=== PATIENT | female | born 1975 | race Caucasian/White ===

== ENCOUNTER 2021-08-13 10:08 | Outpatient (CLI) | payer OTHER, SELFPAY ==
--- NOTE | ~2021-08-13 | MM_ITS ---
EXAMINATION: MM screening cristofer BI w lj HISTORY: Screening TECHNIQUE: Craniocaudal and mediolateral oblique 3-D tomosynthesis images were obtained and synthetic 2-D images were generated. CAD analysis was submitted and interpreted. COMPARISON: Comparison to multiple prior studies sequentially, with oldest reviewed study dated 01/15. BREAST PARENCHYMAL COMPOSITION: The breasts are heterogenously dense, which may obscure small masses FINDINGS: There is no evidence of suspicious mass, calcification, or architectural distortion to sugg est malignancy in either breast. There has been no suspicious interval change. IMPRESSION: 1. No mammographic evidence of malignancy. 2. Recommend routine screening mammography in one year. BI-RADS Category 1: Negative Reviewed, dictated and finalized at location A. ER OUT
== END 2021-08-13 10:09 | disposition home or self-care (01) ==
PROVIDERS: PCP Family Medicine; Visit Provider Physician Assistant
DX: Z12.31 Encounter for screening mammogram for malignant neoplasm of breast (principal)
CPT/HCPCS: 77063; 77067

== ENCOUNTER 2023-01-01 07:56 | Outpatient (CLI) | payer OTHER, SELFPAY ==
--- NOTE | ~2023-01-01 | MM_ITS ---
EXAMINATION: MM screening cristofer BI w lj HISTORY: Screening TECHNIQUE: Craniocaudal and mediolateral oblique 3-D tomosynthesis images were obtained and synthetic 2-D images were generated. CAD analysis was submitted and interpreted. COMPARISON: Comparison to multiple prior studies sequentially, with oldest reviewed study dated 01/15. BREAST PARENCHYMAL COMPOSITION: The breasts are heterogeneously dense, which may obscure small masses . FINDINGS: There is no evidence of suspicious mass, calcification, or architectural distortion to sugg est malignancy in either breast. There has been no suspicious interval change. IMPRESSION: 1. No mammographic evidence of malignancy. 2. Recommend routine screening mammography in one year. BI-RADS Category 1: Negative Reviewed, dictated and finalized at location A.
== END 2023-01-01 07:57 | disposition home or self-care (01) ==
PROVIDERS: PCP Family Medicine; Visit Provider Physician Assistant
DX: Z12.31 Encounter for screening mammogram for malignant neoplasm of breast (principal)
CPT/HCPCS: 77063; 77067

== ENCOUNTER 2023-01-22 11:47 | Day surgery (SDC) | payer OTHER, SELFPAY ==
[2022-12-30 15:03] VITALS: BMI 34.7
[2023-01-05 10:15] VITALS: BMI 31.5
--- NOTE | 2023-01-21 12:50 | WPDANESEPPF ---
Anes - Initial Pre Proc Eval Procedure: Operation Date: 01/22/23 13:30 Proposed Procedures p Screening Colonoscopy - Richard Angel MD Date/Time: 01/21/23 12:50 Surgeon: Richard Angel MD Pre Op Diagnosis: Neoplasm Screening Patient Data Age: 47 Gender: F Height: 1.65 m Weight: 86 kg Allergies Allergy/AdvReac Type Severity Reaction Status Date / Time No Known Allergies Allergy Verified 01/22/23 12:16 Home Medications Medication Instructions Recorded Confirmed Type dextroamphetamine-amphetamine 30 30 mg PO DAILY #30 tabs 11/27/22 01/22/23 Rx mg tablet (Adderall) sodium,potassium,mag sulfates 17.5 See Rx Instructions PO .COMPLEX 12/30/22 01/22/23 Rx gram-3.13 gram-1.6 gram oral soln #354 mL (Suprep Bowel Prep Kit) Patient hx anesthesia problems: none Family hx anesthesia problems: none Results Review: All pre-operative results and documents have been reviewed as part of the pre-operative evaluation. [facility] Past Medical History Medical History (Updated 12/04/22 @ 14:35 by Carlito Jimenez PA-C) ADHD (attention deficit hyperactivity disorder) Blood clot in vein (~2004) Kidney infection (~1998) Surgical History Surgical History H/O arthroscopic knee surgery (~2003) H/O section (~2001) History of removal of skin mole (~2007) Family History Family History Mother Diabetes mellitus Father Cerebrovascular accident Social History Social History Smoking status: Never smoker Alcohol intake: current Substance use: never Substance use type: does not use Lack of Transportation: No Lack of Food: Never True Current Housing: I Have Housing Concerned About Future Housing: No Difficulty Paying Gas/Electric Bills: No Difficulty Paying for Meds: No Currently Unemployed: No Education: Master's Degree or Higher Difficulty w/ Childcare or Family Care: No Living arrangements: with family Spiritual care concerns: No Anes - Eval Final PreProcedure Day of Procedure 01/21/23 12:50 Patient weight: obese Heart: regular rate and rhythm Lungs: clear to auscultation Airway: Mallampati scale class II Neurological: alert and oriented Last oral intake: >/= 8 hours ASA classification: II Emergent: no Anesthetic plan: proceed Anesthesia type and monitoring: general GIVS and standard monitoring Results Review: All pre-operative results and documents have been reviewed as part of the pre-operative evaluation. Informed Consent: The patient's anesthetic plan and its attendant risks and benefits were discussed with the patient/family/POA. Questions were solicited and answers provided to the satisfaction of the patient/family/POA.
[2023-01-22 12:10] VITALS: BP 124/90; PULSE 76; RESP 20; TEMP 36.8; O2SAT 99
[2023-01-22] MEDS: LACTATED RINGERS 1,000 ML 150 ML IV CONT (12:21)
--- NOTE | 2023-01-22 12:29 | P.HP_ITS ---
History of Present Illness History of Present Illness Consent: Risks, benefits, and alternatives have been discussed and questions answered. Patient agrees to proceed with procedure. Chief complaint: Neoplasm Screening Narrative: Paris Ramirez is a 47 year old female Presents for screening colonoscopy. Patient's current weight appetite bowel movements are normal. She denies abdominal pain. Patient has had no bleeding. Family history is noncontributory. Review of Systems Review of Systems: Review of systems noncontributory. [facility] Past Medical History Medical History (Updated 12/04/22 @ 14:35 by Carlito Jimenez PA-C) ADHD (attention deficit hyperactivity disorder) Blood clot in vein (~2004) Kidney infection (~1998) Surgical History Surgical History H/O arthroscopic knee surgery (~2003) H/O section (~2001) History of removal of skin mole (~2007) Family History Family History Mother Diabetes mellitus Father Cerebrovascular accident Social History Social History Smoking status: Never smoker Alcohol intake: current Substance use: never Substance use type: does not use Lack of Transportation: No Lack of Food: Never True Current Housing: I Have Housing Concerned About Future Housing: No Difficulty Paying Gas/Electric Bills: No Difficulty Paying for Meds: No Currently Unemployed: No Education: Master's Degree or Higher Difficulty w/ Childcare or Family Care: No Living arrangements: with family Spiritual care concerns: No Meds Home Medications and Allergies Home Medications Medication Instructions Recorded Confirmed Type dextroamphetamine-amphetamine 30 30 mg PO DAILY #30 tabs 11/27/22 01/22/23 Rx mg tablet (Adderall) sodium,potassium,mag sulfates 17.5 See Rx Instructions PO .COMPLEX 12/30/22 01/22/23 Rx gram-3.13 gram-1.6 gram oral soln #354 mL (Suprep Bowel Prep Kit) Allergies Allergy/AdvReac Type Severity Reaction Status Date / Time No Known Allergies Allergy Verified 01/22/23 12:16 Vital Signs Vital Signs - 24 hr 01/22/23 12:10 Temperature 98.2 F Pulse Rate 76 Respiratory Rate 20 Blood Pressure 124/90 Pulse Oximetry 99 Oxygen Delivery Room Air Exam Narrative: Physical exam reveals patient to be alert. Vital signs stable. HEENT exam is unremarkable. Patient is anicteric. Lungs are clear to auscultation and percussion. Heart is without murmur or extra sounds. Abdomen bowel sounds are present soft nontender with no organomegaly. Digital external rectal exam is n ormal. Assessment and Plan Assessment and plan (1) Colon cancer screening: Code(s): Z12.11 - Encounter for screening for malignant neoplasm of colon Status: Acute Assessment and Plan: Patient presents for screening colonoscopy. She appears to be at average risk for colon polyps.
[2023-01-22 13:16] VITALS: BP 141/97; PULSE 77; RESP 18; O2SAT 100
[2023-01-22 13:26] VITALS: BP 120/91; PULSE 76; RESP 17; O2SAT 100
[2023-01-22 13:36] VITALS: BP 135/88; PULSE 66; RESP 16; O2SAT 100
--- NOTE | 2023-01-22 13:40 | WPDANESPN ---
Anes - Prog Note Post-Op Date/Time: 01/22/23 13:40 Cardiovascular status: normal Respiratory status: normal Airway patency: baseline Mental status: baseline Post-Op hydration status: normal Vital Signs: Last Vital Signs Temp 36.8 C 01/22/23 12:10 Pulse 76 01/22/23 13:26 Resp 17 01/22/23 13:26 BP 120/91 H 01/22/23 13:26 Pulse Ox 100 01/22/23 13:26 O2 Del Method Room Air 01/22/23 13:26 Pain Score (VAS): 0 I/O: Intake & Output 01/21/23 01/22/23 01/22/23 23:59 07:59 15:59 Intake Total 500 Balance 500 Post-procedural complaints: none Patient Feedback: Patient satisfied with anesthetic care. Other Findings: Patient vital signs back to baseline. Patient denies nausea and vomiting. Patient's pain under control. Patient OK for discharge.
== END 2023-01-22 13:47 | disposition home or self-care (01) ==
PROVIDERS: PCP Physician Assistant; Visit Provider Internal Medicine Gastroenterology
PROC: 0DJD8ZZ Inspection of Lower Intestinal Tract, Via Natural or Artificial Opening Endoscopic (ICD-10-PCS; CPT 45378; principal; 2023-01-22 13:30)
DX: Z12.11 Encounter for screening for malignant neoplasm of colon (principal)
CPT/HCPCS: 45378

== ENCOUNTER 2024-01-08 07:21 | Outpatient (CLI) | payer OTHER, SELFPAY ==
--- NOTE | ~2024-01-08 | MM_ITS ---
EXAMINATION: MM screening cristofer BI w lj HISTORY: Screening TECHNIQUE: Craniocaudal and mediolateral oblique 3-D tomosynthesis images were obtained and synthetic 2-D images were generated. CAD analysis was submitted and interpreted. COMPARISON: Comparison to multiple prior studies sequentially, with oldest reviewed study dated 01/15. BREAST PARENCHYMAL COMPOSITION: Dense: The breasts are heterogeneously dense, which may obscure small masses FINDINGS: There is no evidence of suspicious mass, calcification, or architectural distortion to sugg est malignancy in either breast. There has been no suspicious interval change. IMPRESSION: 1. No mammographic evidence of malignancy. 2. Recommend routine screening mammography in one year. BI-RADS Category 1: Negative Reviewed, dictated and finalized at location B.
== END 2024-01-08 07:22 | disposition home or self-care (01) ==
LOC: ANHIMG 07:24
PROVIDERS: PCP Emergency Medicine; Visit Provider Obstetrics & Gynecology
DX: Z12.31 Encounter for screening mammogram for malignant neoplasm of breast (principal)
CPT/HCPCS: 77063; 77067

== ENCOUNTER 2024-03-09 13:53 | Outpatient (CLI) | payer OTHER, SELFPAY ==
[2024-03-09 15:16] LABS: Influenza A QL RT-PCR Negative (Negative); Influenza B QL RT-PCR Negative (Negative); RSV RNA, RT-PCR Negative (Negative); SARS-CoV-2 RNA PCR Positive (Negative)
== END 2024-03-09 13:54 | disposition home or self-care (01) ==
LOC: ANHLAB 13:54
PROVIDERS: PCP Emergency Medicine; Visit Provider Emergency Medicine
DX: U07.1 COVID-19 (principal)
CPT/HCPCS: 87637

== ENCOUNTER 2024-08-04 19:06 | Emergency (ER) | payer OTHER, SELFPAY ==
--- NOTE | ~2024-08-04 | XR_ITS ---
EXAMINATION: XR chest 2V Exam Date/Time: 08/04/2024 21:06 TOW TRUCK OPERATOR HISTORY: sob Comparison: None. RESULT: Lines, tubes, and devices: None. Lungs and pleura: Clear. Cardiomediastinal silhouette: Normal. Other: No acute osseous or upper abdominal finding. IMPRESSION: No acute cardiopulmonary process. Reviewed, dictated and finalized at location K. TRUCK OPERATOR
[2024-08-04 19:55] VITALS: BP 192/108; PULSE 81; RESP 16; TEMP 36.6; O2SAT 100
--- NOTE | 2024-08-04 21:08 | ECG_ITS ---
Test Date: 2024-08-04 21:50:36 Measurements Intervals [place] Rate: 64 P: -21 TN: 133 QRS: -17 QRSD: 85 T: 0 QT: 334 QTc: 346 Interpretive Statements SINUS RHYTHM NONSPECIFIC ST & T-WAVE ABNORMALITY No previous ECG available for comparison Electronically Signed On 08-05-2024 16:50:13 INSTRUCTIONAL DESIGN CONSULTANT by Sergey Lopez M.D.
--- NOTE | 2024-08-04 21:08 | PC.NURSE ---
kim dickinson for PG Chest pain with bnp added
[2024-08-04 22:03] LABS: Basophils Percent Auto 0.7 % (0.2-1.2); Eosinophils Absolute Auto 0.1 K/mm3 (0-0.3); Hematocrit 40.5 % (37.0-47.0); Hemoglobin 13.2 g/dL (12.0-15.0); Immature Granulocyte Absolute 0.01 K/mm3 (0.00-0.031); Immature Granulocyte Percent A 0.2 % (0-0.5); Lymphocytes Absolute Auto 1.78 K/mm3 (0.9-3.2); Lymphocytes Percent Auto 29.4 % (18.3-44.2); Mean Corpuscular HGB Conc 32.6 g/dl (32-36); Mean Corpuscular Hemoglobin 29.1 pg (26-34); Mean Corpuscular Volume 89.4 fl (80-100); Mean Platelet Volume 9.8 fl (7.4-10.4); Monocytes Absolute Auto 0.7 K/mm3 (0.1-0.6); Monocytes Percent Auto 10.7 % (2.6-8.5); Neutrophils Absolute Auto 3.5 K/mm3 (1.3-6.7); Platelet Count Result 354 k/mm3 (150-375); Red Blood Count 4.53 M/mm3 (4.2-5.4); Red Cell Distribution Width 12.5 % (11.5-14.5); White Blood Count 6.1 K/mm3 (4.5-10.0)
[2024-08-04 22:10] LABS: Alanine Aminotransferase 27 U/L (6-35); Albumin Level 4.5 g/dL (3.5-5.1); Alkaline Phosphatase 51 U/L (38-126); Anion Gap 8 mmol/L (4-12); Aspartate Amino Transferase 22 U/L (14-36); Bilirubin,Total 0.8 mg/dL (0.2-1.3); Blood Urea Nitrogen 5 mg/dL (7-17); Calcium 9.8 mg/dL (8.4-10.2); Carbon Dioxide 26 mmol/L (22-30); Chloride 101 mmol/L (98-107); Estimated CRCL calculation 81 ml/min; Estimated Glomerular Filt Rate > 60; Glucose 89 mg/dL (65-110); Lipase 96 U/L (23-300); Potassium 3.9 mmol/L (3.4-5.0); Prothrombin Time 13.8 Seconds (11.1-14.7); Sodium 135 mmol/L (137-145)
[2024-08-04 22:11] LABS: Partial Thromboplastin Time 25.9 Seconds (22.3-36.8)
[2024-08-04 22:21] LABS: NT Pro B Type Natriuretic Pept 22 pg/mL (19.9-100); Troponin I < 0.012 ng/mL (0.000-0.034)
[2024-08-04 23:35] VITALS: BP 150/84; PULSE 82; RESP 15; O2SAT 99
[2024-08-04 23:39] VITALS: RESP 14; O2SAT 99
[2024-08-05 00:28] VITALS: BP 126/74; PULSE 66; RESP 13; O2SAT 100
[2024-08-05 01:10] LABS: Troponin I < 0.012 ng/mL (0.000-0.034)
--- NOTE | 2024-08-05 01:14 | ED.GENADULT ---
HPI - General Adult General Chief complaint: Recheck/Abnormal Lab/Rx Stated complaint: sent by for HTN Time Seen by Provider: 08/05/24 00:10 History of Present Illness HPI narrative: Patient is a 49-year-old female who presents to the ER with concerns of high blood pressure. She reports over the last past year she has been experiencing intermittent heart palpitations so she purchased a blood pressure cuff. Patient reports she had heart palpitations approximately 2 months ago and took her blood pressure at home which was a reading in the 140s/90s. She reports that she does have a primary care provider but she has not seen them for quite some time. Patient denies any history of smoking cigarettes, alcohol or drug use, and exercises daily. She does endorse increased anxiety recently. Patient reports she has a history of ADHD and takes Adderall every day, but she has taken this for years. She reports today she started experiencing some blurred vision and headache which is what led her to take her blood pressure at home. Patient reports her symptoms have resolved at this time. She denies any chest pain, shortness of breath, recent signs/symptoms of illness, lower extremity swelling, urinary symptoms. Related Data Allergies Allergy/AdvReac Type Severity Reaction Status Date / Time No Known Allergies Allergy Verified 03/29/24 10:03 Review of Systems Review of Systems: All systems reviewed & are unremarkable except as noted in HPI and below PMFSH Past Medical History Medical History Kidney infection (~1998) Blood clot in vein (~2004) ADHD (attention deficit hyperactivity disorder) Surgical History Surgical History History of knee surgery Right knee meniscus repair March 02 2024 H/O arthroscopic knee surgery (~2003) H/O section (~2001) History of removal of skin mole (~2007) Family History Family History Mother Diabetes mellitus Father Cerebrovascular accident Social History Social History Smoking status: Never smoker Alcohol intake: current Substance use: never Substance use type: does not use Lack of Transportation: No Lack of Food: Never True Current Housing: I Have Housing Concerned About Future Housing: No Difficulty Paying Gas/Electric Bills: No Difficulty Paying for Meds: No Currently Unemployed: No Education: Master's Degree or Higher Difficulty w/ Childcare or Family Care: No Living arrangements: with family Spiritual care concerns: No Course Vital Signs Vital signs: Vital Signs Temperature 36.6 C 08/04/24 19:55 Pulse Rate 81 08/04/24 19:55 Respiratory Rate 16 08/04/24 19:55 Blood Pressure 192/108 H 08/04/24 19:55 Pulse Oximetry 100 08/04/24 19:55 Temperature 36.6 C 08/04/24 19:55 Pulse Rate 66 08/05/24 00:28 Respiratory Rate 13 08/05/24 00:28 Blood Pressure 126/74 08/05/24 00:28 Pulse Oximetry 100 08/05/24 00:28 Medical Decision Making MDM Narrative Medical decision making narrative: Patient is a 49-year-old female who presents to the ER with concerns of high blood pressure. She reports over the last past year she has been experiencing intermittent heart palpitations so she purchased a blood pressure cuff. Patient reports she had heart palpitations approximately 2 months ago and took her blood pressure at home which was a reading in the 140s/90s. She reports that she does have a primary care provider but she has not seen them for quite some time. Patient denies any history of smoking cigarettes, alcohol or drug use, and exercises daily. She does endorse increased anxiety recently. Patient reports she has a history of ADHD and takes Adderall every day, but she has taken this for years. She reports today she started experiencing some blurred vision and headache which is what led her to take her blood pressure at home. Patient reports her symptoms have resolved at this time. She denies any chest pain, shortness of breath, recent signs/symptoms of illness, lower extremity swelling, urinary symptoms. Labs Ordered: CBC, CMP, INR, APTT, lipase, troponin, BMP, TSH Imaging Ordered: Chest x-ray Results: Chest x-ray indicates No acute cardiopulmonary process. Her blood work indicates mild dehydration. Diagnosis: Primary hypertension, mild dehydration Patient Education/Shared MDM: Results shared with patient. Patient will be started on the lisinopril with 5 mg p.o. daily. She is strongly advised to follow-up with her primary care provider as soon as possible. Patient strongly advised to maintain better hydration status outpatient. She verbalizes understanding and is in agreement with plan. Differential Diagnosis Differential Diagnosis: Primary hypertension, atypical chest pain, abnormal thyroid hormone levels Vital Signs Vital Signs: Vital Signs Temperature 36.6 C 08/04/24 19:55 Pulse Rate 81 08/04/24 19:55 Respiratory Rate 16 08/04/24 19:55 Blood Pressure 192/108 H 08/04/24 19:55 Pulse Oximetry 100 08/04/24 19:55 Temperature 36.6 C 08/04/24 19:55 Pulse Rate 66 08/05/24 00:28 Respiratory Rate 13 08/05/24 00:28 Blood Pressure 126/74 08/05/24 00:28 Pulse Oximetry 100 08/05/24 00:28 Lab Data Lab results reviewed: Yes I reviewed the patient's lab results. 08/04/24 21:51 08/04/24 21:51 Labs: Lab Results 08/04/24 08/04/24 08/05/24 Range/Units 21:50 21:51 00:24 WBC 6.1 (4.5-10.0) K/mm3 RBC 4.53 (4.2-5.4) M/mm3 Hgb 13.2 (12.0-15.0) g/dL Hct 40.5 (37.0-47.0) % MCV 89.4 (80-100) fl MCH 29.1 (26-34) pg MCHC 32.6 (32-36) g/dl RDW 12.5 (11.5-14.5) % Plt Count 354 (150-375) k/mm3 MPV 9.8 (7.4-10.4) fl Immature Gran % (Auto) 0.2 (0-0.5) % Neut % (Auto) 58.0 (45.5-73.1) % Lymph % (Auto) 29.4 (18.3-44.2) % [place] % (Auto) 10.7 H (2.6-8.5) % Eos % (Auto) 1.0 (0-4.4) % Baso % (Auto) 0.7 (0.2-1.2) % Lymph # (Auto) 1.78 (0.9-3.2) K/mm3 [place] # (Auto) 0.7 H (0.1-0.6) K/mm3 Eos # (Auto) 0.1 (0-0.3) K/mm3 Baso # (Auto) 0.0 (0.0-0.1) K/mm3 Abs Immat Gran (auto) 0.01 (0.00-0.031) K/mm3 Absolute Neuts (auto) 3.5 (1.3-6.7) K/mm3 Absolute Nucleated RBC 0.000 (0.0-0.012) K/mm3 Nucleated RBC % 0.0 (0.0-0.2) % PT 13.8 (11.1-14.7) Seconds INR 1.0 APTT 25.9 (22.3-36.8) Seconds Sodium 135 L (137-145) mmol/L Potassium 3.9 (3.4-5.0) mmol/L Chloride 101 (98-107) mmol/L Carbon Dioxide 26 (22-30) mmol/L Anion Gap 8 (4-12) mmol/L BUN 5 L (7-17) mg/dL Creatinine 0.76 (0.7-1.0) mg/dL Estim Creat Clear Calc 81 ml/min Estimated GFR > 60 (59 - ) Glucose 89 (65-110) mg/dL Calcium 9.8 (8.4-10.2) mg/dL Total Bilirubin 0.8 (0.2-1.3) mg/dL AST 22 (14-36) U/L ALT 27 (6-35) U/L Alkaline Phosphatase 51 (38-126) U/L Troponin I < 0.012 < 0.012 (0.000-0.034) ng/mL NT-Pro-B Natriuret Pep 22 (19.9-100) pg/mL Total Protein 8.0 (6.3-8.2) g/dL Albumin 4.5 (3.5-5.1) g/dL Lipase 96 (23-300) U/L TSH (Reflex) 1.670 (0.465-4.68) uIU/mL Imaging Data Attestation: I personally reviewed and interpreted this imaging study as follows: Radiologist's impression: Impressions Chest X-Ray 08/04/24 21:20 IMPRESSION: No acute cardiopulmonary process. Discharge Plan Discharge Clinical Impression: Hypertension, Mild dehydration Patient Disposition: Home, Self-Care Condition: Stable Instructions: Antibiotic Form, Hypertension (ED) Additional Instructions: Please return to the ER with an worsening symptoms. Follow-up with primary care provider in the next 2-3 days. Take all medications as prescribed. Patient Language: Belgian Prescriptions: New lisinopril 5 mg tablet 5 mg PO DAILY Qty: 30 0RF No Action tobramycin-dexamethasone 0.3-0.1 % drops,suspension 1 drp LEFT EYE QID Qty: 10 0RF Rx Instructions: Use no more than 7 days consecutively dextroamphetamine-amphetamine [Adderall] 30 mg tablet 30 mg PO DAILY Qty: 30 0RF Rx Instructions: June dextroamphetamine-amphetamine [Adderall] 30 mg tablet 30 mg PO DAILY Qty: 30 0RF Rx Instructions: July dextroamphetamine-amphetamine [Adderall] 30 mg tablet 30 mg PO DAILY Qty: 30 0RF Rx Instructions: August Follow-up/Referrals: Gokul Merino MD [Primary Care Provider] - Time of Disposition: 01:41
[2024-08-05 02:22] VITALS: BP 147/82; PULSE 67; RESP 14; TEMP 36.5; O2SAT 100
--- OUTSIDE RECORDS SUMMARY | 2024-08-12 01:11 | XMS_ITS | Encounter Summary ---
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 Procedure Visit [facility] [id number] [place] [address] , [address] [place] [address] Prothrombin mutation (HCC); Personal history of venous thrombosis and embolism Social History Tobacco Use Types Packs/Day Years Used Date Smoking Tobacco: Never Alcohol Use Standard Drinks/Week Comments No 0 (1 standard drink = 0.6 oz pur e alcohol) Comments Yes Sex and Gender Information Value Date Recorded Sex Assigned at Not on file Gender Identity Not on file Sexual Orientation Not on file documented as of this encounter Procedure Notes * Linda Estrada RN - 07/22/2010 2:08 PM CST DNKA SCAPE CONTRACTOR documented in this encounter Plan of Treatment Not on file documented as of this encounter Visit Diagnoses Diagnosis Prothrombin mutation (HCC) Primary hypercoagulable state Personal history of venous thrombosis and embolism documented in this encounter Care Teams Geoscience Professor Relationship Specialty Start Date End Date Unknown, Provider PCP - General 03/26/10 12/13/13 documented as of this encounter
--- OUTSIDE RECORDS SUMMARY | 2024-08-12 01:11 | XMS_ITS | Encounter Summary ---
Author Organization [facility] Address [address] [place] [address] Care Team Providers Care Cmv Driver Name Role Phone Unknown, Provider Primary Care Provider Unavaila ble Reason for Visit * Reason Comments Consultation Ultrasound FAD NST Encounter Details Date Type Department Care Team (Latest Contact Info) Description 08/06/2010 3:15 PM PATIENT SAFETY COORDINATOR [facility] Visit [facility] at [facility] [address] , [address] [place] [address] Raya Arguello MD Personal history of venous thrombosis and embolism Discharge Disposition: Home or Self Care Social History Tobacco Use Types Packs/Day Years Used Date Smoking Tobacco: Never Alcohol Use Standard Drinks/Week Comments No 0 (1 standard drink = 0.6 oz pur e alcohol) Comments Yes Sex and Gender Information Value Date Recorded Sex Assigned at Not on file Gender Identity Not on file Sexual Orientation Not on file documented as of this encounter Last Filed Vital Signs Vital Sign Reading Time Taken Comments Blood Pressure 107/58 08/06/2010 3:17 PM PATIENT SAFETY COORDINATOR Pulse 90 08/06/2010 3:17 PM PATIENT SAFETY COORDINATOR Temperature - - Respiratory Rate 16 08/06/2010 3:17 PM PATIENT SAFETY COORDINATOR Oxygen Saturation - - Inhaled Oxygen Concentration - - Weight 100.2 kg (221 lb) 08/06/2010 3:17 PM PATIENT SAFETY COORDINATOR Height - - Body Mass Index 36.78 03/26/2010 8:53 AM CDT documented in this encounter Progress Notes * Roberto Leavitt MD - 08/06/2010 4:22 PM CST nst 08-06-10 Reactive, no decels, reassuring Roberto Leavitt MD ENT SAFETY COORDINATOR * Linda Estrada, RN - 08/06/2010 3:17 PM CST Pt. here for consultation with Dr. Leavitt for history of DVT. See letter for further information. Pt. here for US. See report. Copy of report faxed to office of referring physician. PT sts she does have some contractions that make it difficult to walk. ENT SAFETY COORDINATOR documented in this encounter Plan of Treatment Scheduled Orders Name Type Priority Associated Diagnoses Orde r Schedule SONOGRAM - COMPLETE MATRNL MED Routine Personal history of venous thrombosis and embolism Expected: 08/06/2010, Expires: 07/11/2011 CBC W AUTO DIFFERENTIAL Lab Routine Personal history of venous thrombosis and embolism Ordered: 08/06/2010 documented as of this encounter Procedures Procedure Name Priority Date/Time Associated Diagnosis Comments URINALYSIS OBSTETRICS - POINT OF CARE Routine 08/06/2010 5:45 PM PATIENT SAFETY COORDINATOR Personal history of venous thrombosis and embolism BIOPHYSICAL PROFILE W NST Routine 08/06/2010 4:07 PM PATIENT SAFETY COORDINATOR Personal history of venous thrombosis and embolism documented in this encounter Results * URINALYSIS OBSTETRICS - POINT OF CARE (08/06/2010 5:45 PM PATIENT SAFETY COORDINATOR) Glucose UA negative Negative [facility] PO[facility] Bilirubin UA negative Negative [facility] PO CT TESTING Ketone UA negative Negative [facility] PO[facility] Specific [place] UA POCT 1.015 1.000 - 1.030 [facility] Blood UA negative Negative [facility] pH UA 6.0 5.0 - 8.0 pH units [facility] Protein UA negative Negative [facility] Urobilinogen UA 0.2 0.2 - 1.0 EU/dL [facility] Nitrite UA negative Negative [facility] Leukocyte UA negative Negative [facility] PO CT TESTING QC Verified yes Yes [facility] POC T TESTING Urine specimen (specimen) URINE / Unknown Roberto Leavitt MD LAB - POINT OF CARE ORDERABLES [facility] [address] [place] [address] * BIOPHYSICAL PROFILE W NST (08/06/2010 4:07 PM PATIENT SAFETY COORDINATOR) Anatomical Region Laterality Modality Other 08/06/2010 4:07 PM PATIENT SAFETY COORDINATOR Narrative 08/06/2010 4:48 PM PATIENT SAFETY COORDINATOR ?[facility] ?[facility] ?FAX: ?? Pat. Name: ?DORIAN OLIVIA. No: ?[id number] Study Date: ?? 08/06/2010 ??4:07pm , Age: ? 1975, 35 Pregnancies: ?? 2, Para 1001 LMP: ?Unknown GA by 1st: ?36.4 weeks GA Selected: ??36.4 weeks (From Known E) MANOJ: ?08/31/2010 Referring : Audie Hand Or Machine Paster: ??Kirsty Galloway RDMS Hist/Ind: ? Hx of DVT/ Prothrombin mutation Heart Rate: 148.0 bpm Amniotic Fluid Index: 15.8 (07.6-24.7) Q1: 1.4 ?? Q2: 6.8 ?? Q3: 4.6 ?? Q4: 3.0 ?? Biophysical Profile: 05/05 Breathin ?? Tone: 2 ?? NST: 2 Movement: ??2 ?? AFV: ??2 CLINICAL SUMMARY [place]:N=Appears Normal, A=Abnormal, U=Unclear Tape Number : [id number] Study No. 9 presentation : Vertex No: ?? 1 Cardiac motion : Seen Four Chamber Heart: N Stomach/ Abdominal Wall : N Cord Insertion: N Bladder: N Kidneys: N Limbs:Upper : N Lower: ?? N Face: N Spine : ?? N Cranial Anatomy: N Diaphragm: N Placenta Location: Anterior Placental Grade : 2 Amniotic Fluid Volume: Normal Gender : Female____ Comments: The MANOJ selected is based on a prior ultrasound examination. The amniotic fluid volume is within normal limits. The BPP score is reassuring at 05/05. Thank you for allowing us the opportunity to care for your patient. Roberto Leavitt MD <Electronic Signature> ??08/06/2010 04:46pm Modesto Choe MD [facility] ORDERABLES documented in this encounter Visit Diagnoses Diagnosis Personal history of venous thrombosis and embolism- Primary documented in this encounter Care Teams Cmv Driver Relationship Specialty Start Date End Date Unknown, Provider PCP - General 03/26/10 12/13/13 documented as of this encounter
--- OUTSIDE RECORDS SUMMARY | 2024-08-12 01:11 | XMS_ITS | Encounter Summary ---
Author Organization [facility] Address [address] [place] [address] Care Team Providers Care Tamper Operator Name Role Phone Unknown, Provider Primary Care Provider Unavaila ble Reason for Visit * Reason Comments Scheduled C Section Encounter Details Date Type Department Care Team (Latest Contact Info) Description 08/26/2010 9:00 AM AGRICULTURAL RESEARCH TECHNICIAN - 08/30/2010 1:56 PM AGRICULTURAL RESEARCH TECHNICIAN Hospital Encounter [facility] - Labor & Delivery [address] [place] [id number] Raya Arguello MD Obstetrics Discharge Disposition: Home or Self Care Social History Tobacco Use Types Packs/Day Years Used Date Smoking Tobacco: Never Smokeless Tobacco: Never Alcohol Use Standard Drinks/Week Comments No 0 (1 standard drink = 0.6 oz pur e alcohol) Sex and Gender Information Value Date Recorded Sex Assigned at Not on file Gender Identity Not on file Sexual Orientation Not on file documented as of this encounter Last Filed Vital Signs Vital Sign Reading Time Taken Comments Blood Pressure 111/56 08/30/2010 8:30 AM AGRICULTURAL RESEARCH TECHNICIAN Pulse 80 08/30/2010 12:25 AM AGRICULTURAL RESEARCH TECHNICIAN Temperature 36.3 ??C (97.4 ??F) 08/30/2010 8:30 AM CS T Respiratory Rate 18 08/30/2010 8:30 AM AGRICULTURAL RESEARCH TECHNICIAN Oxygen Saturation 97% 08/26/2010 1:18 PM AGRICULTURAL RESEARCH TECHNICIAN Inhaled Oxygen Concentration - - Weight 98 kg (216 lb) 08/26/2010 9:44 AM AGRICULTURAL RESEARCH TECHNICIAN Height 165.1 cm (5' 5 ) 08/26/2010 9:44 AM AGRICULTURAL RESEARCH TECHNICIAN Body Mass Index 35.94 08/26/2010 9:44 AM AGRICULTURAL RESEARCH TECHNICIAN documented in this encounter Discharge Summaries * Lola Valdovinos MD - 08/30/2010 10:21 AM CST OB Discharge Note 08/30/2010 10:21 AM Subjective: Patient is feeling well, pain adequately controlled, passing flatus, tolerating diet, ambulating. Objective: Vitals: 08/28/10 1650 08/29/10 0800 08/29/10 1710 08/30/10 0025 BP: 109/64 107/61 105/57 106/58 Pulse: 98 71 82 80 Temp: 98.3 ??F 97 ??F 97 ??F 97.3 ??F Resp: 16 18 18 18 Weight: SpO2: No intake or output data in the 24 hours ending 08/30/10 1021 Exam: General: alert, cooperative, no distress Bowel Sounds: active Lochia: appropriate Uterine Fundus: firm Incision :clean, dry and intact DVT Evaluation: No evidence of DVT seen on physical exam. Results: My review of labs, imaging, notes and other tests shows no new significant findings. Reasons for Admission: Discharge Date: 08/30/2010 Discharge Diagnosis: Term delivery. Delivery Type: section Antepartum complications: hx of DVT Incision: LCT uterus Rhogam: not indicated Rubella: not indicated Assessment: 2, Para 2, None filed, Estimated Date of Delivery: 08/31/10 Gestational Age day 4, section. Complications: none Condition at discharge: good Discharge Instructions: Discharge Procedure Orders REGULAR DIET AT HOME FOLLOW UP Follow up with your physician in six weeks if vaginal delivery or two weeks if . NOTHING PER VAGINA for 6 weeks DISCHARGE ACTIVITY RESTRICTIONS Counseling Services Manager activity. Order Specific Question Answer Comments For how long? Two weeks DRIVING RESTRICTIONS No driving until off narcotic pain meds. NO HEAVY LIFTING for 4-6 weeks. Order Specific Question Answer Comments Greater Than # Pounds: 10 CALL PHYSICIAN Call Physician for fever of 101.0 or higher, increased vaginal bleeding, increased pain, or wound drainage. CALL PHYSICIAN Call MD if increasing redness or discharge from incision site. SHOWER AND BATH INSTRUCTIONS May shower now. CALL PHYSICIAN If severe pain/cramping or if heavy vaginal bleeding occurs Current Discharge Medication List START taking these medications oxycodone-acetaminophen (PERCOCET) 5-325 MG tablet Take 1-2 Tabs by mouth every 4 hours as needed for Pain. Qty: 60 Tab Refills: 0 ibuprofen (MOTRIN) 600 MG tablet Take 1 Tab by mouth every 6 hours as needed for Pain. Qty: 100 Tab Refills: 1 CONTINUE these medications which have NOT CHANGED Calcium Carbonate (TUMS 500 PO) Take 1,000 mg by mouth daily. Ferrous Sulfate (IRON) 325 (65 FE) MG TABS Take 325 mg by mouth daily. VITAMIN PO Take 1 Tab by mouth daily. enoxaparin (LOVENOX) injection Inject 40 mg subcutaneously daily. Qty: 4.2 Refills: 2 STOP taking these medications heparin 85729 UNITS/ML 1.5 ml-precious&polyn&HC [id number] OT SUSP 5 ml-NaCl 0.9% inj 3.5 ml STOP Discharge to home. Follow up with Dr Garcia in 2 and 6 weeks. Lola Valdovinos MD CULTURAL RESEARCH TECHNICIAN documented in this encounter Discharge Instructions * Discharge Instructions* Lola Valdovinos MD - 08/30/2010 10:23 AM AGRICULTURAL RESEARCH TECHNICIAN Instructions for Going Home Nothing in the vagina for 6 weeks unless instructed otherwise by the doctor (i.e., tampons, douching, or intercourse) Don't lift anything heavier than 20 lbs for the next month No driving for 2-4 weeks and not if you are taking pain pills Limit stairs to 1-2 times per day Don't lay in bed all day but by the same token do not be up doing housework. We are designed to move. This will prevent blood clots and bowel problems. Walk around, increasing activity as tolerated. Use common sense. If you are nursing, drink plenty of fluids and get plenty of sleep. These will affect your milk supply. Take vitamins as long as you are nursing. If you had a vaginal delivery, start Kegel pelvic floor tightening exercises as soon as possible. If you have pre existing diabetes or hypertension, make sure this is well controlled. Do not smoke Call for: Temperature greater than or equal to 100.4 Heavy vaginal bleeding (saturating one super pad per hour or more frequently); normal bleeding after delivery can go on for 6-8 weeks If your wound becomes red, hot, swollen, or starts to drain Worsening pain Vomiting Breast redness or pain Swelling, pain, or warmth in the calf or the thigh CULTURAL RESEARCH TECHNICIAN * Discharge Instructions* Document, Scanned - 08/31/2010 8:15 AM AGRICULTURAL RESEARCH TECHNICIAN documented in this encounter Medications at Time of Discharge Medication Sig Dispensed Refills Start Date End Date Calcium Carbonate (TUMS 500 PO)Indications:Person al history of venous thrombosis and embolism Take 1,000 mg by mouth daily. 09/15/2017 enoxaparin (LOVENOX) injectionIndications: Personal history of venous thrombosis and embolism Inject 40 mg subcutaneously daily. 4.2 2 01/14/2010 09/15/2017 Ferrous Sulfate (IRON) 325 (65 FE) MG TABS Take 325 mg by mouth daily. 09/15/2017 ibuprofen (MOTRIN) 600 MG tablet Take 1 Tab by mouth every 6 hours as needed for Pain. 100 Tab 1 08/30/2010 09/15/2017 oxycodone-acetaminoph en (PERCOCET) 5-325 MG tablet Take 1-2 Tabs by mouth every 4 hours as needed for Pain. 60 Tab 0 08/30/2010 09/15/2017 VITAMIN POIndications:Persona l history of venous thrombosis and embolism Take 1 Tab by mouth daily. 09/15/2017 documented as of this encounter Progress Notes * Clyde Granados MD - 09/15/2010 2:18 AM CST POST-OP ANESTHESIA EVALUATION Paris Ramirez is a 35 y.o. female The patient is sufficiently recovered from the acute administration of the anesthesia so as to participate in the evaluation or neurologic status has returned to pre-operative or expected level of consciousness. The post-anesthesia assessment was completed based upon the elements below. The patient is stable and has adequately recovered from anesthesia unless otherwise noted. Post-op Evaluation: Temp: 97.4 ??F Pulse: 80 Resp: 18 SpO2: 97 % BP: 111/56 mmHg Pain Rating Score #: 3 Other complications A post-op evaluation was performed on the patient with the following assessment: No Apparent Anesthesia Complications Unless otherwise indicated, the patient is being discharged from anesthesia care. Clyde Granados MD CULTURAL RESEARCH TECHNICIAN * Evelyn Power RN - 08/30/2010 1:25 PM CST Discharge Note: Patient being discharged to home today. VSS. Tolerating regular diet and voiding without difficulty. Percocet and Motrin given for pain. Up and ambulating independently. Incision to lower abdomen well approximated with no drainage noted. Fundus firm and light lochia. Bonds well withbaby. Father of baby at bedside. Teds in place. Patient wearing supportive bra. Discharge information discussed with patient. Patient has no questions. Scripts delivered to patient from [employer]. CULTURAL RESEARCH TECHNICIAN * Lola Valdovinos MD - 08/30/2010 10:16 AM CST OB Progress Note-C/S 08/30/2010 10:17 AM Paris Ramirez Subjective: Patient is feeling well, pain adequately controlled, and ambulating. Objective: Temp (36hrs) Max:97.3 ??F Vitals: 08/28/10 1650 08/29/10 0800 08/29/10 1710 08/30/10 0025 BP: 109/64 107/61 105/57 106/58 Pulse: 98 71 82 80 Temp: 98.3 ??F 97 ??F 97 ??F 97.3 ??F Resp: 16 18 18 18 Weight: SpO2: No intake or output data in the 24 hours ending 08/30/10 1017 Exam: General: alert, cooperative, no distress Bowel Sounds: active Uterine Fundus: firm Incision: healing well, no significant drainage, no dehiscence, no significant erythema DVT Evaluation: No evidence of DVT seen on physical exam. Hands were foamed in and out. Data: Results: My review of labs, imaging, notes and other tests shows no new significant findings. Assessment: Post-op day 4. Complications: none The patient feels well. Pain is well controlled with current medications. Urinary output is adequate. The patient is ambulating well. The patient is tolerating a normal diet. Flatus has been passed. Plan: Discharge Lola Valdovinos MD CULTURAL RESEARCH TECHNICIAN * Danya Guillen RN - 08/29/2010 5:32 PM CST Shift highlights: VSS, Inc-C/D/I with dermabond, FFU, small lochia, voiding without difficulty, passing flatus, pain controlled with prescribed medication, ambulating in hallway, bonding with . Pt continues to pump breasts- milk coming in. Pt continues to wear abd binder. CULTURAL RESEARCH TECHNICIAN * Sundar Gonzalez DO - 08/29/2010 12:33 PM CST OB Progress Note 08/29/2010 12:33 PM Paris Ramirez Subjective: Patient is feeling well, pain adequately controlled, passing flatus, tolerating diet, ambulating. Just got out of shower Objective: Temp (36hrs) Max:98.3 ??F Vitals: 08/28/10 0000 08/28/10 0755 08/28/10 1650 08/29/10 0800 BP: 109/56 106/61 109/64 107/61 Pulse: 98 71 Temp: 96 ??F 97.9 ??F 98.3 ??F 97 ??F Resp: 18 16 16 18 Weight: SpO2: No intake or output data in the 24 hours ending 08/29/10 1233 Urinary output is adequate Exam: Deferred 2 to in shower General: alert, cooperative, no distress Data: Component Name 08/27/10 0743 08/26/10 0952 08/13/10 1453 04/23/10 1617 WBC -- 7.3 6.6 6.3 HGB 8.3* 10.8* 10.1* -- HCT 25.6* 32.3* 30.2* -- PLTCOUNT -- 169 176 186 Results: My review of labs, imaging, notes and other tests shows no new significant findings. Assessment: Post-op day 2. Complications: none Plan: Continue routine care Sundar Gonzalez DO CULTURAL RESEARCH TECHNICIAN * Luna Green RN - 08/29/2010 5:48 AM CST NIght summary: PP assessment wnl. VSS. Passing gas but has not had bm yet. Suppository offered and declined. Pain fairly well controlled with prn meds. Suggested that pt should walk in halls this morning. Nursing baby with assistance of nursery. Pumping at intervals. at bedside. CULTURAL RESEARCH TECHNICIAN * Ivana Grijalva RN - 08/28/2010 4:18 PM CST SHIFT SUMMARY: VSS Pain under control FF/midline/lochia WNL Low transverse incision -- approximated -- secured with stitches and dermabond -- abdominal binder on Voiding without difficulty Tolerating regular diet Breast feeding -- supplementing Bonding well with baby Ambulating in room CULTURAL RESEARCH TECHNICIAN * Raya Arguello MD - 08/28/2010 1:56 PM CST OB Progress Note-C/S Paris Ramirez 08/28/2010 1976 1:56 PM [id number] [facility] Delivery Date: Information for the patient's : Araseli Ramirez [[id number]] 08/26/2010 day: Information for the patient's : Araseli Ramirez [[id number]] Hospital Day: 2 Component Name 08/26/10 0952 ABORH A Pos LOS: 2 days Subjective: The patient feels well. Pain is well controlled with current medications. The baby iswell. Urinary output is adequate. The patient is ambulating well. The patient is tolerating a normal diet. Flatus has been passed. Objective: Temp (36hrs) Max:98.2 ??F Vitals: 08/27/10 0830 08/27/10 1615 08/28/10 0000 08/28/10 0755 BP: 102/54 106/56 109/56 106/61 Pulse: Temp: 96.5 ??F 97.3 ??F 96 ??F 97.9 ??F Resp: 16 18 18 16 Weight: SpO2: No intake or output data in the 24 hours ending 08/28/10 1356 Exam: General: alert, in no distress Abdomen: active soft, non-tender, non-distended Uterine Fundus: firm nontender Lochia appropriate Incision: healing well, no significant drainage, no dehiscence, no significant erythema DVT Evaluation: No evidence of DVT seen on physical exam.. Extremities: Extremities: legs non-tender, no erythema or swelling Hands were foamed in and out. Data: Component Name 08/27/10 0743 08/26/10 0952 08/13/10 1453 WBC -- 7.3 6.6 HGB 8.3* 10.8* -- HCT 25.6* 32.3* -- Results: My review of labs, imaging, notes and other tests shows no new significant findings. Assessment: Doing well postoperatively. Low Hg, carrie well. Plan: Continue routine care, Fe. Raya Arguello MD CULTURAL RESEARCH TECHNICIAN * Melodie Fonseca RN - 08/28/2010 5:48 AM CST Shift summary: alert resting comfortable. percocet and Motrin relieve pain. FF firm 2F below umbilicus. Scant vag bleeding. Abd binder on. CULTURAL RESEARCH TECHNICIAN * Eldon Shaffer RN - 08/27/2010 6:18 PM CST Shift Summery Note: VSS FF @ midline Moderate lochia rubra without clots ABD incision well approximated Tolerating regular diet and independent ambulation Pain controlled with po pain meds Voiding without difficulty Bonding with baby CULTURAL RESEARCH TECHNICIAN * Lola Valdovinos MD - 08/27/2010 12:26 PM CST OB Progress Note-C/S 08/27/2010 12:26 PM Paris Ramirez Subjective: Patient is feeling well, pain adequately controlled, and ambulating. Objective: Temp (36hrs) Max:98.2 ??F Vitals: 08/26/10 1945 08/27/10 0000 08/27/10 0500 08/27/10 0830 BP: 115/65 103/55 93/55 102/54 Pulse: 75 Temp: 97.2 ??F 98 ??F 98.2 ??F 96.5 ??F Resp: 18 18 16 Weight: SpO2: Intake/Output Summary (Last 24 hours) at 08/27/10 1226 Last data filed at 08/27/10 0515 Gross per 24 hour Intake 2875 ml Output 2750 ml Net 125 ml Exam: General: alert, cooperative, no distress Bowel Sounds: active Uterine Fundus: firm Incision: healing well, no significant drainage, no dehiscence, no significant erythema DVT Evaluation: No evidence of DVT seen on physical exam. Hands were foamed in and out. Data: Results: My review of labs, imaging, notes and other tests shows no new significant findings. Assessment: Post-op day 1. Complications: none The patient feels well. Pain is well controlled with current medications. Urinary output is adequate. The patient is ambulating well. The patient is tolerating a normal diet. Flatus has been passed. Plan: Advance diet Encourage ambulation Lola Valdovinos MD CULTURAL RESEARCH TECHNICIAN * Josey Finnegan RN - 08/27/2010 5:30 AM CST SHIFT SUMMARY: VSS L/T incision site well approx.--no drainage--SANJUANA--Abdominal Binder in place--ice applied FF/midline/small lochia--no clots BS X 4 Tolerating clears--will advance to regular diet for breakfast Murillo draining clear/yellow urine--will be DC'd this a.m. IV fluids infusing without difficulty--will heplock this a.m. Up to chair this shift--tolerated well Bonding well with baby CULTURAL RESEARCH TECHNICIAN * Sundar Vickers RN - 08/26/2010 7:09 PM CST Shift Summary Patient's vital signs stable, afebrile. Patient denies pain at this time, resting with infant at bedside. Tolerating Ice chips. Sundar Vickers RN 08/26/2010 7:10 PM CULTURAL RESEARCH TECHNICIAN * Jef Chacon MD - 08/26/2010 12:06 PM CST Progress note Called to assist in a repeated section. Jef Chacon MD CULTURAL RESEARCH TECHNICIAN * Javad Peña CRNA - 08/26/2010 10:22 AM CST PRE-ANESTHESIA EVALUATION Evaluated By: Javad Peña, 08/26/2010 10:22 AM Paris Ramirez is a 35 y.o. female Purpose: Scheduled Procedure Scheduled procedure: Hospital Problem List Patient Active Problem List Diagnoses Code ??? Personal History of Venous Thrombosis and Embolism V12.51 ??? 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 Phlebitis and thrombophlebitis of unspecified site 2003 following broken right foot. DVT in right leg. ??? Abnormal Pap smear 1999 had colpo and a leep Past Surgical History Past Surgical History Procedure Date ??? Cervical leep 1999 ??? Colposcopy 1999 Allergies Review of patient's allergies indicates no known allergies. Meds Prescriptions prior to admission Medication Sig Dispense Refill ? ? heparin 89799 UNITS/ML 1.5 ml-precious&polyn&HC 3.5-47230-1 OT SUSP 5 ml-NaCl 0.9% inj 3.5 ml 2 times daily. 60 mL 1 ??? Calcium Carbonate (TUMS 500 PO) Take 1,000 mg by mouth daily. ??? Ferrous Sulfate (IRON) 325 (65 FE) MG TABS Take 325 mg by mouth daily. ??? VITAMIN PO Take 1 Tab by mouth daily. ??? enoxaparin (LOVENOX) injection Inject 40 mg subcutaneously daily. 4.2 2 Current facility-administered medications Medication Dose Route Frequency Provider Last Rate Last Dose ??? metoclopramide (REGLAN) injection ADS Med Last Dose: 10 mg at 08/26/10 1011 ??? famotidine (PEPCID) injection ADS Med Last Dose: 20 mg at 08/26/10 1011 ??? citric acid-sodium citrate (BICITRA) solution ADS Med Last Dose: 30 mL at 08/26/10 1011 ??? lactated ringers infusion Intravenous pre-OP continuous Raya Arguello MD ??? ceFAZolin (ANCEF) 2 G in D5W IVPB 2 g Intravenous intra-OP once Raya Arguello MD Last Dose:2 g at 08/26/10 1012 Past Social History History Social History ??? Marital Status: Spouse Name: N/A Number of Children: N/A ??? Years of Education: N/A Occupational History ??? Not on file. Social History Main Topics ??? Smoking status: Never Smoker ??? Smokeless tobacco: Never Used ??? Alcohol Use: No ??? Drug Use: No ??? Sexually Active: Not on file Other Topics Concern ??? Not on file Social History Narrative ??? No narrative on file Lab Results Component Name 08/26/10 0952 08/13/10 1453 04/23/10 1617 WBC 7.3 6.6 6.3 HGB 10.8* 10.1* 10.4* HCT 32.3* 30.2* 30.5* PLTCOUNT 169 176 186 No results found for this basename: SODIUM:3,POTASSIUM:3,CHLORIDE:3,CO2:3,BUN:3,CREATININE:3,GLUCOSE:3,CALCIUM:3 in the last 26054 hours No results found for this basename: INR:3,PT:3,PTT:3 in the last 05844 hours No results found for this basename: TROPONIN:3 in the last 66625 hours Last Vital SignsVITAL SIGNS Temp: 96.7 ??F Pulse: 82 Resp: 18 BP: 115/65 mmHg Weight: 216 lb Height: 5' 5 Pre-Eval ExamPrevious Review I reviewed previous documentation: Yes PHYSICAL EXAM NPO status: Since Midnight Heart Sounds: S1 S2 Respiratory Pattern/Effort: CTA Oriented x 3: Yes Teeth: Ok Airway Class: I ANESTHESIA ASA: II Anesthesia Choices: Subarachnoid Block Post-Op: OB PRE-EVAL REVIEW I have reviewed all previously documented physician evaluations: Yes CULTURAL RESEARCH TECHNICIAN documented in this encounter H&P Notes * Raya Arguello MD - 08/25/2010 11:42 PM [facility] Pre-Operative History and Physical [facility] PRE-OPERATIVE HISTORY AND PHYSICAL PATIENT: : PARIS RAMIREZ MR#: [id number] ADMIT DATE: 08/26/2010CCT#: [id number] SURGERY DATE: 08/26/2010ROOM: PHYSICIAN: Raya Souza MD HISTORY OF PRESENT ILLNESS: This is a 34-year-old 2, para 1, white female, last menstrual period was the end of October, EDC is 09/02/2010, which makes her 39 weeks gestation. has been complicated by a history of a DVT after a broken leg, and previous macrosomia. She had been on Lovenox through the with the co management of a maternal medicine specialist. She comestoday for repeat section. ALLERGIES: NONE. MEDICATIONS: Lovenox. She had been switched to heparin at the end of her , and her last dose was last night. SOCIAL HISTORY: Tobacco none. Alcohol none. Drugs denies. PAST MEDICAL HISTORY: History of DVT after a broken leg. PAST SURGICAL HISTORY: She had a LEEP procedure in 1999. BOARD FILLER: She had a section with her first baby for failure to progress with a 9-pound, 13-ounce boy. FAMILY HISTORY: Otherwise unremarkable except for hypertension in her father, heart disease in grandparents, diabetes in a grandfather. REVIEW OF SYSTEMS: Negative. PHYSICAL EXAMINATION: GENERAL: She is a well-developed, well-nourished white female in no acute distress. SHEENT: Unremarkable. NECK: Supple. LUNGS: Clear. HEART: Regular rate and rhythm. ABDOMEN: Soft, nontender, with a 36-cm Luna. She has a mole on her left thigh that she wants me to remove at the time of her section. IMPRESSION: Term , previous section, history of deep venous thrombosis, abnormal-looking mole on her left thigh. PLAN: Repeat low transverse section with removal of mole on her left thigh. I discussed with the patient the procedure and the risks of anesthesia, infection, hemorrhage, injury to the bowel, bladder, ureters, adjacent organs, DVT and PE which could be life threatening, adhesion formation which could result in chronic pain or bowel obstruction. We also discussed possibility of needing further surgery if the mole is suspicious on pathology. We also discussed the need for be replaced on Lovenox after surgery, and the potential for bleeding with this. She understands and requests I proceed with the surgery. MD GILDA Up/MedTiffani #: [id number] CULTURAL RESEARCH TECHNICIAN documented in this encounter Procedure Notes * Document, Scanned - 01/14/2012 5:47 PM CDTAssociated Order(s): LAB RESULTS ORDER documented in this encounter Consult Notes * Document, Scanned - 01/14/2012 5:47 PM CDT * Gabriela Martino RN - 08/30/2010 9:51 AM CST follow up: Mom states infant latched a few times and did well swallowing present. Continues to pump after feedings and give EBM in bottle as needed too much help with SNS. Reassurance giventhat it is her choice and will help prior to discharge today if desires. Will give EBM as supplement until follows up with her filemaker developer in AM due to weight loss. Milk in pumping 2 oz at a time. LC # given for questions or concerns after discharge.Discussed outpatient visits available. CULTURAL RESEARCH TECHNICIAN * Gabriela Martino RN - 08/29/2010 1:57 PM CST follow up: Observed at breast. Mom holding in football position. Rooting present,frantic at breast. Tongue tie noted. Used #24 contact shield. Latched obtained after several attempts. Used # 5 finnish feeding tube with syringe of EBM. With milk infant noted a continuous rhythmic suck. Audible swallowing present. Observed feedings on both breast. tires after 10 minutes each breast. EBM supplement of 22 cc given. Due to weight loss mom has been giving formula after feeds. Discussed with filemaker developer ok to use EBM and not formula. Plan Feedings: Put to breast every 3 hours- may use shield. Mom states likes the feeding tube with syringe to give supplement so will continue this. Mom given option if overwhelmed may give supplement after latch attempts via bottle. Last will pump using double electric pump after each feed for 10 minutes if no latch at all may pump 15 minutes. Will inform nursery nurse of feeding plan and copy note to chart. CULTURAL RESEARCH TECHNICIAN * Gabriela Martino RN - 08/29/2010 10:00 AM CST Consult: Reviewed benefits of exclusive breast feeding.Health impact of breast feeding for self and . Given Breast Andrea. Reviewed feeding frequency, duration, cues, nipple care, engorgement vs fullness,mastitis.Use of pacifier with breast feeding,and milk production pumping.discussedalso.Denies questions. Phone resource given. Discussed with mother and filemaker developer the medical need for supplement after feedings. Verbalized understanding. Pumping after feeds and obtained 2 oz of transition milk. Reviewed pumping frequency,duration, storage of milk, and cleaning of pump. States has Medela pump n style at home. Discussed hospital rentals. Will assess latch next feeding. CULTURAL RESEARCH TECHNICIAN documented in this encounter OR Notes * Operative - Raya Arguello MD - 08/26/2010 12:17 PM CST OB Operative Note- Section, Removal of mole on left thigh, ligation of hematoma left incision Paris Ramirez 1975 39w2d 08/26/2010 [id number] [place] Preoperative Diagnosis: Term previous DVT, previous C/S Postoperative Diagnosis: same Procedure: low cervical transverse section Additional Procedures: Removal of mole on left thigh, ligation of hematoma left incision Surgeon: Raya Arguello MD Folder Machine Operator: Yanet Type of anesthesia:Spinal Complications: none EBL: 400 cc Specimen(s) removed: placenta Drains: Urinary Catheter (Murillo) Findings: Information for the patient's : Araseli Ramirez Girl Paris [[id number]] Date of 08/26/2010 Time of : 11:26 AM Sex: Female Weight: (1 min): 8 (5 min): 9 (10 min): Disposition: patient taken to recovery in stable condition Description of the Procedure: With IV fluids running, Spinal anesthesia was activated, the patient was brought to the operating room and a murillo and sequentials were placed. She was placed in the dorsal supine position with a slight left tilt, prepped and draped in the usual fashion. Time out procedure confirmed the correct patient, doctor and procedure.A Pfannenstiel incision was made through the skin and subcutaneous tissues. The rectus fascia was incised and extended laterally. The fascia was sharply dissected off the rectus muscles, which were divided. The peritoneum was entered, extended superiorly and inferiorly. A bladder blade was placed in the inferior pole of the incision. The vesicouterine peritoneum was cut and extended laterally. The bladder was bluntly dissected off the lower uterine segment. A Low transverse incision was made and extended laterally with bandage scissors. Artificial rupture of the membranes was performed yielding Clear fluid. The vertex was delivered through the uterine incision. Thenose and oropharynx were suctioned with the bulb. The anterior and posterior shoulders were easily d elivered, as was the remainder of the infant, who was noted to be vigorous with good grimace, tone and lusty cry. The cord was doubly clamped and cut. The was passed off to the awaiting pediatric team. The placenta was manually removed and the uterus externalized. The endometrial cavity wiped clean. The cervix was noted to be dilated. There was noted to be a uterine atony treated with uterine massage and IM methergine. The uterine incision was closed with a running interlocking suture of0 chromic. A second layer of 0 chromic Limbert style suture was used to imbricate the first layer. There was noted to be a hematoma at the left corner which was ligated using 0 chromic. Hemostasis was observed. Cul-de-sac was irrigated. Adnexae were normal. The uterus was placed into the abdominal cavity. The gutters were checked and clots removed. The incision was inspected in situ and noted to be hemostatic. Adhesions were absent and seprafilm applied. The parietal peritoneum was then closed using simple running suture of 2-0 Vicryl. The muscle bellies were brought together in the midline using horizontal mattress sutures of 0 chromic. The fascia was closed using simple running suture of 0 PDS. Subcutaneous tissues were irrigated. Bleeding vessels were cauterized. The skin was approximated using subcuticular sutures of 4-0 monocryl. and then dermabond was applied on this. Next, attention was paid to the mole on her left thigh. This was grasped with the allis clamp, excised, bovied and closed with 4-0 PDS. Dermabond was applied. Sponge, instrument, and needle count were reported correct at the end of the procedure. The Murillo was noted to be draining clear urine. The patient was brought to the recovery room in stable condition and she and the tolerated the procedure well. Raya Arguello MD CULTURAL RESEARCH TECHNICIAN documented in this encounter Miscellaneous Notes * Miscellaneous Scans - Document, Scanned - 01/21/2012 3:16 PM CDT * Miscellaneous Scans - Document, Scanned - 01/14/2012 5:47 PM CDT * Miscellaneous Scans - Document, Scanned - 01/14/2012 5:47 PM CDT * Miscellaneous Scans - Document, Scanned - 05/24/2011 11:40 PM CDT * Miscellaneous Scans - Document, Scanned - 09/03/2010 11:23 AM AGRICULTURAL RESEARCH TECHNICIAN * Miscellaneous Scans - Document, Scanned - 09/02/2010 6:40 AM AGRICULTURAL RESEARCH TECHNICIAN * Miscellaneous Scans - Document, Scanned - 08/31/2010 8:15 AM AGRICULTURAL RESEARCH TECHNICIAN * Miscellaneous Scans - Document, Scanned - 08/31/2010 8:15 AM AGRICULTURAL RESEARCH TECHNICIAN * Miscellaneous Scans - Document, Scanned - 08/31/2010 8:15 AM AGRICULTURAL RESEARCH TECHNICIAN * Miscellaneous Scans - Document, Scanned - 08/31/2010 8:15 AM AGRICULTURAL RESEARCH TECHNICIAN * Delivery Summary - Sundar Vickers RN - 08/26/2010 1:31 PM CST Delivery Summary /Para: Estimated Due Date: Estimated Date of Delivery: 08/31/10 Estimated Gestational Age: 39w2d GBS: Unknown Number of Antibiotic Doses: 0 Transcribed Labs: Blood Type (Manually Reproduced): A RH (Manually Reproduced): Positive Syphilis Serology (Manually Reproduced): Negative HIV (Manually Reproduced): Negative Hepatitis B Surface Antigen (Manually Reproduced): Negative Rubella Status ( Manually Reproduced): Immune Delivery Data Mother: Labor Events Augmentation Method: Induction Method: Intrapartum Events Anesthesia/Analgesia: Spinal Time of Decision for C/S: Indications: Repeat Labor Complications: None Delivery Episiotomy: None Lacerations: None Repair Suture: None Estimated Blood Loss: 400 C/Section Delivery Personnel Anesthesia Care Provider 1: Cyndi Noonan Time Start: 1108 Time Stop: 1220 Anesthesia Care Provider 2: Jaspreet Peña Time Start: 1103 Time Stop: 1220 Surgeon 1: Dr. Garcia Time Start: 1105 Time Stop: 1208 Folder Machine Operator 1: Dr. Holt Time Start: 1105 Time Stop: 1155 Scrub 1: Caitlyn Donohue Time Start: 1103 Time Stop: 1215 Cardiovascular Surgeon: Brenda Canela Time Start: 1103 Time Stop: 1214 Cardiovascular Surgeon: Jojo Vickers Time Start: 1103 Time Stop: 1214 Baby Care RN 1: Bobby Summers Time Start: 1121 Time Stop: 1145 Baby Care Physician: Dr. Lopez Time Start: 1122 Time Stop: 1130 Other Person 1: Ugo Cortes Time Start: 1110 Delivery Data: Information for the patient's : Ashley Baby Girl Paris [[id number]] Estimated Gestational Age: Gestational Age: 39.3 weeks. Delivery Details Date of 08/26/2010 Time of : 11:26 AM Delivery Type: , Scheduled Delivering Clinician: Dr. Garcia Presentation Delivery Presentation: Vertex Membranes Membrane Status: Rupture Date: 08/26/2010 Rupture Time: 11:26 AM Fluid Description: Clear Placenta Data Placenta Delivery Date and Time: 08/26/2010 11:29 AM Placenta Appearance/Removal: Intact Cord Data Cord Vessels: 3 Vessels Cord Complications: None Cord Blood Disposition: Nursery Gases Sent: Yes Stabilization Suction Method: Bulb Secretions: Clear Thin Airway Support: Thermoregulation Support: Overhead Warmer Warm Blankets More Interventions Needed: Description of Baby: Viable Female infant born, Apgars of 8 and 9. In [facility]. Assessment (1 min): 8 (5 min): 9 Delivery Outcome Living: Yes Sex: Female Measurements Weight: 3275 g (7 lb 3.5 oz) Length: 21 inches Head Circumference: 13.75 inches Chest Circumference: 12.25 inches Present at Delivery: FOB was present for delivery. CULTURAL RESEARCH TECHNICIAN documented in this encounter Plan of Treatment Not on file documented as of this encounter Procedures Procedure Name Priority Date/Time Associated Diagnosis Comments LAB RESULTS ORDER 01/14/2012 5:4 7 PM CDT GROSS + MICRO EXAM Routine 08/27/2010 12 :54 PM AGRICULTURAL RESEARCH TECHNICIAN HGB HCT PANEL Routine 08/27/2010 7:43 AM AGRICULTURAL RESEARCH TECHNICIAN BLOOD GASES ARTERIAL STAT 08/26/2010 11:34 AM AGRICULTURAL RESEARCH TECHNICIAN BLOOD GASES ARTERIAL STAT 08/26/2010 11:34 AM AGRICULTURAL RESEARCH TECHNICIAN PTT STAT 08/26/2010 10:34 AM AGRICULTURAL RESEARCH TECHNICIAN TYPE + SCREEN PANEL STAT 08/26/2010 9 :52 AM AGRICULTURAL RESEARCH TECHNICIAN CBC W AUTO DIFFERENTIAL STAT 08/26/2010 9:52 AM AGRICULTURAL RESEARCH TECHNICIAN documented in this encounter Results * LAB RESULTS ORDER (01/14/2012 5:47 PM CDT) Narrative Transcriptions Document, Scanned - 01/14/2012 5:47 PM CDT Scanned Document LAB - THERAPEUTIC DR JACOB MONITORING ORDERABLES * GROSS + MICRO EXAM (08/27/2010 12:54 PM AGRICULTURAL RESEARCH TECHNICIAN) [facility] Surgeon DR. Jojo GARCIA [facility] Grossed By RAF BRENNAN [facility] Gross Report [facility] Comment: COPY TO: ?? INDICATION FOR PROCEDURE: ??Pathology OPERATION: ?? GROSS: The specimen is received in one container labeled with the patient's name and mole, left medial thigh. ??The specimen consists of a 0.7 x 0.6 x 0.5 cm raised, exophytic, variegated, mccracken and grayish-brown skin nodule on a 0.8 x 0.5 cm shave biopsy of mccracken skin. ??The margin is inked. ??The specimen is bisected and submitted entirely in a single cassette. LW/km Microscopic Examination [facility] Comment: MICROSCOPIC: Microsection reveals skin with a lesion showing papillomatosis, hyperkeratosis and pseudo horn cyst formation. ??Mild chronic inflammation is noted. ??There is no evidence of atypia or malignancy. ?? The lesion is excised. ?? GM/km Diagnosis [facility] Comment: DIAGNOSIS: 1. ?? Skin, left medial thigh, excision: -- ?? Seborrheic keratosis, completely excised -- ?? Chronic inflammation GM/km Released by AFSANEH PETE M.D. [facility] CPT Code 04547 [facility] NEVUS AND/OR MELANOMA / Unknown 08/27/2010 12:54 PM AGRICULTURAL RESEARCH TECHNICIAN 08/27/2010 12:55 PM AGRICULTURAL RESEARCH TECHNICIAN Raya Picheradley MD LAB - PATHOLOGY/CYTO LOGY ORDERABLES Performing Organization Address [facility] Co de Phone Number [facility] [address] [place] [address] * (ABNORMAL) HGB HCT PANEL (08/27/2010 7:43 AM AGRICULTURAL RESEARCH TECHNICIAN) Hemoglobin 8.3(L) 12.0 - 16.0 gm/dl [facility] Hematocrit 25.6(L) 36.0 - 48.0 % [facility] BLOOD SPECIMEN / Unknown 08/27/2010 7:43 AM AGRICULTURAL RESEARCH TECHNICIAN 08/27/2010 7:47 AM AGRICULTURAL RESEARCH TECHNICIAN Narrative [facility] - 08/27/2010 7:54 AM AGRICULTURAL RESEARCH TECHNICIAN Obtain 12-24 hours after delivery. Raya Arguello MD LAB - HEMATOLOGY ORD ERABLES Performing Organization Address [facility] de Phone Number [facility] [address] [place] [address] * (ABNORMAL) BLOOD GASES ARTERIAL (08/26/2010 11:34 AM AGRICULTURAL RESEARCH TECHNICIAN) pH Arterial 7.28(L) 7.38 - 7.42 pH Units [facility] pCO2 Arterial 57(H) 35 - 45 mm Hg [facility] pO2 Arterial 17(L) 80 - 105 mm Hg [facility] O2 Saturation Arterial 20(L) 95 - 98 % [facility] HCO3 Arterial 26 22 - 26 mmol/L [facility] TCO2 Arterial 28(H) 23 - 27 mmol/L [facility] Base Excess Arterial -2 -2 to 3 mmol/L [facility] Hemoglobin Arterial 16.0 12 - 17 g/dl [facility] Hematocrit Arterial 47 38 - 51 % [facility] Glucose 60(L) 70 - 105 mg/dl [facility] Sodium Arterial 136(L) 138 - 146 mmol/L [facility] Potassium Arterial 4.7 3.5 - 4.9 mmol/L [facility] Calcium Ionized 1.45(H) 1.12 - 1.32 mmol/L [facility] Site [employer] [facility] ARTERIAL BLOOD SPECIMEN / Unknown 08/26/2010 11:34 AM AGRICULTURAL RESEARCH TECHNICIAN 08/29/2010 12:07 PM AGRICULTURAL RESEARCH TECHNICIAN Raya Arguello MD LAB - BLOOD GASES OR DERABLES Performing Organization Address [facility] de Phone Number [facility] [address] [place] [address] * (ABNORMAL) BLOOD GASES ARTERIAL (08/26/2010 11:34 AM AGRICULTURAL RESEARCH TECHNICIAN) pH Arterial 7.28(L) 7.38 - 7.42 pH Units [facility] pCO2 Arterial 57(H) 35 - 45 mm Hg [facility] pO2 Arterial 17(L) 80 - 105 mm Hg [facility] O2 Saturation Arterial 20(L) 95 - 98 % [facility] HCO3 Arterial 26 22 - 26 mmol/L [facility] TCO2 Arterial 28(H) 23 - 27 mmol/L [facility] Base Excess Arterial -2 -2 to 3 mmol/L [facility] Hemoglobin Arterial 16.0 12 - 17 g/dl [facility] Hematocrit Arterial 47 38 - 51 % [facility] Glucose 60(L) 70 - 105 mg/dl [facility] Sodium Arterial 136(L) 138 - 146 mmol/L [facility] Potassium Arterial 4.7 3.5 - 4.9 mmol/L [facility] Calcium Ionized 1.45(H) 1.12 - 1.32 mmol/L [facility] Site [employer] [facility] ARTERIAL BLOOD SPECIMEN / Unknown 08/26/2010 11:34 AM AGRICULTURAL RESEARCH TECHNICIAN 08/26/2010 12:01 PM AGRICULTURAL RESEARCH TECHNICIAN Raya Arguello MD LAB - BLOOD GASES OR DERABLES Performing Organization Address [facility] de Phone Number [facility] [address] [place] [address] * PTT (08/26/2010 10:34 AM AGRICULTURAL RESEARCH TECHNICIAN) PTT 26.3 24.0 - 32.0 seconds [facility] BLOOD SPECIMEN / Unknown 08/26/2010 10:34 AM AGRICULTURAL RESEARCH TECHNICIAN 08/26/2010 10:34 AM AGRICULTURAL RESEARCH TECHNICIAN Raya Arguello MD LAB - COAGULATION OR DERABLES Performing Organization Address [facility] Co de Phone Number [facility] [address] [place] [address] * TYPE + SCREEN PANEL (08/26/2010 9:52 AM AGRICULTURAL RESEARCH TECHNICIAN) ABO Rh A Pos [facility] Antibody Screen Neg Negative [facility] BLOOD SPECIMEN / Unknown 08/26/2010 9:52 AM AGRICULTURAL RESEARCH TECHNICIAN 08/26/2010 10:03 AM AGRICULTURAL RESEARCH TECHNICIAN Raya Arguello MD LAB - BLOOD BANK ORD ERABLES [facility] [address] [place] [address] * (ABNORMAL) CBC W AUTO DIFFERENTIAL (08/26/2010 9:52 AM AGRICULTURAL RESEARCH TECHNICIAN) WBC 7.3 4.5 - 11.0 1000/mm3 [facility] RBC 3.84(L) 4.2 - 5.4 10X6 [facility] Hemoglobin 10.8(L) 12.0 - 16.0 gm/dl [facility] Hematocrit 32.3(L) 36.0 - 48.0 % [facility] MCV 84.1 80.0 - 99.0 fl [facility] MCH 28.1 25.0 - 31.0 pg [facility] MCHC 33.4 32.0 - 36.0 gm/dl [facility] RDW 13.8 11.5 - 14.5 % [facility] Platelet Count 169 130.0 - 400.0 1000/mm3 [facility] Granulocytes % 68.5 40.0 - 70.0 % [facility] Lymphocytes % 21.3(L) 22.0 - 40.0 % [facility] Monocytes % 8.9 2.0 - 10.0 % [facility] Eosinophils % 1.2 0.0 - 6.0 % [facility] Basophils % 0.1 0.0 - 3.0 % [facility] Granulocytes Absolute 4.98 1.8 - 7.7 [facility] Lymphocytes Absolute 1.55 1.0 - 5.4 [facility] Monocytes Absolute 0.65 0.1 - 1.1 [facility] Eosinophils Absolute 0.09 0.0 - 0.7 [facility] Basophils Absolute 0.01 0.0 - 0.2 [facility] Comment Manual Diff Not Indicated [facility] BLOOD SPECIMEN / Unknown 08/26/2010 9:52 AM AGRICULTURAL RESEARCH TECHNICIAN 08/26/2010 10:04 AM AGRICULTURAL RESEARCH TECHNICIAN Raya Arguello MD LAB - HEMATOLOGY ORD ERABLES [facility] [address] [place] [address] documented in this encounter Visit Diagnoses Diagnosis Personal history of venous thrombosis and embolism documented in this encounter Administered Medications Inactive Administered Medications - up to 3 most recent administrations Medication Order MAR Action Action Date Dose Rate Site ceFAZolin (ANCEF) 2 G in D5W IVPB 2 g, at 200 mL/hr, Intravenous, INTRA-OP ONCE, 1 dose, Administer after cord clamped. $ Given 08/26/2010 10:12 AM AGRICULTURAL RESEARCH TECHNICIAN 2 g 200 mL/hr citric acid-sodium citrate (BICITRA) solution ADS Med 1 dose, Starting on Thu08/26/10 at 1004, Until Thu08/26/10 at 1011, JAIDEN CANELA M: Cabinet Override $ Given 08/26/2010 10:11 AM AGRICULTURAL RESEARCH TECHNICIAN 30 mL dextrose 5 % and 0.45% nacl infusion at 125 mL/hr, Intravenous, CONTINUOUS, Starting on Thu08/26/10 at 1445, Until 08/31/10 at 0156 $ New Bag/Syringe 08/26/2010 2:45 PM AGRICULTURAL RESEARCH TECHNICIAN 125 mL/hr diphenhydrAMINE (BENADRYL) injection 25 mg 25 mg, Intravenous, EVERY 6 HOURS PRN, Itching, Starting on Thu08/26/10 at 1437, Until 08/31/10 at 0156, Max intravenous rate = 25 mg/min $ Given 08/27/2010 12:29 AM AGRICULTURAL RESEARCH TECHNICIAN 25 mg $ Given 08/26/2010 5:58 PM AGRICULTURAL RESEARCH TECHNICIAN 25 mg docusate sodium (COLACE) capsule 100-200 mg 100-200 mg, Oral, AT BEDTIME PRN, Constipation, Starting on Thu08/26/10 at 1437, Until 08/31/10 at 0156 $ Given 08/28/2010 9:22 PM AGRICULTURAL RESEARCH TECHNICIAN 100 mg $ Given 08/28/2010 8:50 AM AGRICULTURAL RESEARCH TECHNICIAN 100 mg $ Given 08/27/2010 8:26 AM AGRICULTURAL RESEARCH TECHNICIAN 100 mg enoxaparin (LOVENOX) injection 40 mg 40 mg, Subcutaneous, DAILY, First dose on Thu08/27/10 at 0900, Until Discontinued, (for prefilled syringes) do not expel air bubble from the syringe prior to the injection $ Given 08/30/2010 8:28 AM AGRICULTURAL RESEARCH TECHNICIAN 40 mg Abd Right Lower Quad rant $ Given 08/29/2010 9:16 AM AGRICULTURAL RESEARCH TECHNICIAN 40 mg Ab dominal Tissue $ Given 08/28/2010 8:50 AM AGRICULTURAL RESEARCH TECHNICIAN 40 mg Le ft Upper Outer Quadrant famotidine (PEPCID) injection ADS Med 1 dose, Starting on Thu08/26/10 at 1004, Until Thu08/26/10 at 1011, JAIDEN CANELA M: Cabinet Override $ Given 08/26/2010 10:11 AM AGRICULTURAL RESEARCH TECHNICIAN 20 mg ibuprofen (MOTRIN) tablet 600 mg 600 mg, Oral, EVERY 6 HOURS PRN, Pain, Starting on Thu08/26/10 at 1437, Until 08/31/10 at 0156, Mild per patient description. Maximum allowable ibuprofen amount = 3200 mg / 24 hours. $ Given 08/30/2010 8:28 AM AGRICULTURAL RESEARCH TECHNICIAN 600 mg $ Given 08/30/2010 12:41 AM AGRICULTURAL RESEARCH TECHNICIAN 600 mg $ Given 08/29/2010 5:10 PM AGRICULTURAL RESEARCH TECHNICIAN 600 mg iron polysaccharides - vit C (FERREX 150 PLUS) capsule 1 Cap 1 capsule, Oral, DAILY, First dose on Thu08/28/10 at 1430, Until Discontinued $ Given 08/30/2010 8:28 AM AGRICULTURAL RESEARCH TECHNICIAN 1 capsule $ Given 08/29/2010 9:21 AM AGRICULTURAL RESEARCH TECHNICIAN 1 capsule $ Given 08/28/2010 4:03 PM AGRICULTURAL RESEARCH TECHNICIAN 1 capsule ketorolac (TORADOL) injection 30 mg 30 mg, Intravenous, EVERY 6 HOURS PRN, Pain, Starting on Thu08/26/10 at 1022, Until Thu08/26/10 at 1437, PRN if not administered in the OR. . WASTE DISPOSAL INSTRUCTIONS: Black Bin Disposal required. . $ Given 08/26/2010 11:30 AM AGRICULTURAL RESEARCH TECHNICIAN 30 mg ketorolac (TORADOL) injection 30 mg 30 mg, Intravenous, EVERY 6 HOURS PRN, Pain, Starting on Thu08/26/10 at 1437, Until 08/31/10 at 0156, . WASTE DISPOSAL INSTRUCTIONS: Black Bin Disposal required. . $ Given 08/27/2010 7:08 AM AGRICULTURAL RESEARCH TECHNICIAN 30 mg lactated ringers infusion at 125 mL/hr, Intravenous, CONTINUOUS, Starting on Thu08/26/10 at 1445, Until 08/31/10 at 0156, May discontinue IV when taking PO and afebrile. $ New Bag/Syringe 08/26/2010 2:45 PM AGRICULTURAL RESEARCH TECHNICIAN 125 mL/hr lanolin (LANOLIN) ointment Topical, PRN, Dry Skin, Sore or cracked nipples., Starting on Thu08/26/10 at 1437, Until 08/31/10 at 0156, Apply purified Lanolin to sore or cracked nipples, if needed. May keep at bedside. $ Given 08/27/2010 8:26 AM AGRICULTURAL RESEARCH TECHNICIAN Each methylergonovine (METHERGINE) injection ADS Med 1 dose, Starting on Thu08/26/10 at 1135, Until Thu08/26/10 at 1145, JAIDEN CANELA: Cabinet Override $ Given 08/26/2010 11:45 AM AGRICULTURAL RESEARCH TECHNICIAN metoclopramide (REGLAN) injection ADS Med 1 dose, Starting on Thu08/26/10 at 1004, Until Thu08/26/10 at 1011, JAIDEN CANELA M: Cabinet Override $ Given 08/26/2010 10:11 AM AGRICULTURAL RESEARCH TECHNICIAN 10 mg nalbuphine (NUBAIN) 10 mg/ml injection ADS Med 1 dose, Starting on Thu08/26/10 at 1453, Until Thu08/26/10 at 1452, SUNDAR VICKERS M: Cabinet Override nalbuphine (NUBAIN) injection 10 mg 10 mg, Intravenous, EVERY 6 HOURS PRN, Pain, Starting on Thu08/26/10 at 1022, Until Thu08/26/10 at 1437 $ Given 08/26/2010 2:52 PM AGRICULTURAL RESEARCH TECHNICIAN 10 mg oxycodone-acetaminophen (PERCOCET) 5-325 MG tablet 1-2 Tab 1-2 tablet, Oral, EVERY 4 HOURS PRN, Pain, Starting on Thu08/27/10 at 0000, Until 08/31/10 at 0156, For pain not controlled by non-opiod analgesics. Maximum allowable acetaminophen amount = 4 Grams / 24 hours. $ Given 08/30/2010 8:28 AM AGRICULTURAL RESEARCH TECHNICIAN 2 tablets $ Given 08/30/2010 3:17 AM AGRICULTURAL RESEARCH TECHNICIAN 2 tablets $ Given 08/29/2010 9:45 PM AGRICULTURAL RESEARCH TECHNICIAN 2 tablets oxytocin (PITOCIN) 30 units in 500 ml normal saline IV solution 125 nirali-units/min (rounded to 125 mL/hr), Intravenous, CONTINUOUS, Starting on Thu08/26/10 at 1445, Until 08/31/10 at 0156 $ Bolus New Bag 08/26/2010 12:46 PM AGRICULTURAL RESEARCH TECHNICIAN 30 Units oxytocin (PITOCIN) 30 units in 500 ml normal saline IV solution ADS Med 1 dose, Starting on Thu08/26/10 at 1027, Until Thu08/26/10 at 1246, JAVAD PEÑA (SRNA): Cabinet Override simethicone (MYLICON) chew tablet 80-160 mg 80-160 mg, Oral, QID PRN (after meals and at bedtime), Gas Pain, Starting on Thu08/26/10 at 1437, Until 08/31/10 at 0156 $ Given 08/28/2010 9:22 PM AGRICULTURAL RESEARCH TECHNICIAN 160 mg documented in this encounter Active and Recently Administered Medications Times are shown in AGRICULTURAL RESEARCH TECHNICIAN. Scheduled Medication Order 08/28/2010 08/29/2010 08/30/2010 enoxaparin (LOVENOX) injection 40 mg (CANCELED) 40 mg, Subcutaneous, DAILY, First dose on Thu08/27/10 at 0900, Until Discontinued, (for prefilled syringes) do not expel air bubble from the syringe prior to the injection 0850 ($ Given - Provider: Ivana Grijalva RN) 0916 ($ Given - Provider: Danya Guillen, CASSANDRA) 0828 ($ Given - Provider: Evelyn Power V, CASSANDRA) iron polysaccharides - vit C (FERREX 150 PLUS) capsule 1 Cap (CANCELED) 1 capsule, Oral, DAILY, First dose on Thu08/28/10 at 1430, Until Discontinued 1603 ($ Given - Provider: Ivana Grijalva RN - Comment: meds not available) 0921 ($ Given - Provider: Danya Guillen, CASSANDRA) 0828 ($ Given - Provider: Evelyn Roman RN) PRN Medication Order 08/28/2010 08/29/2010 08/30/2010 docusate sodium (COLACE) capsule 100-200 mg (CANCELED) 100-200 mg, Oral, AT BEDTIME PRN, Constipation, Starting on Thu08/26/10 at 1437, Until 08/31/10 at 0156 0850 ($ Given - Provider: Ivana Grijalva, CASSANDRA)2122 ($ Given - Provider: Luna Green, RN) ibuprofen (MOTRIN) tablet 600 mg 600 mg, Oral, EVERY 6 HOURS PRN, Pain, Starting on Thu08/26/10 at 1437, Until 08/31/10 at 0156, Mild per patient description. Maximum allowable ibuprofen amount = 3200 mg / 24 hours. 0245 ($ Given - Provider: Melodie Fonseca RN)1142 ($ Given - Provider: Cynthia Briceño RN)2337 ($ Given - Provider: Luna Green, RN) 0722 ($ Given - Provider: Luna Green RN)1710 ($ Given - Provider: Danya Guillen, CASSANDRA) 0041 ($ Given - Provider: Zoë Paul, CASSANDRA)0828 ($ Given - Provider: Evelyn Roman RN) oxycodone-acetaminophen (PERCOCET) 5-325 MG tablet 1-2 Tab 1-2 tablet, Oral, EVERY 4 HOURS PRN, Pain, Starting on Thu08/27/10 at 0000, Until 08/31/10 at 0156, For pain not controlled by non-opiod analgesics. Maximum allowable acetaminophen amount = 4 Grams / 24 hours. 0245 ($ Given - Provider: Melodie Fonseca RN)0850 ($ Given - Provider: Ivana Grijalva RN)1243 ($ Given - Provider: Eldon Shaffer RN)1700 ($ Given - Provider: Ivana Grijalva RN)2122 ($ Given - Provider: Luna Green, CASSANDRA) 0138 ($ Given - Provider: Luna Green, RN)0722 ($ Given - Provider: Luna Green, CASSANDRA)1206 ($ Given - Provider: Danya Guillen, CASSANDRA)1710 ($ Given - Provider: Danya Guillen, CASSANDRA)2145 ($ Given - Provider: Zoë Paul, CASSANDRA) 0317 ($ Given - Provider: Larissa Almanzar RN)0828 ($ Given - Provider: Evelyn Jannet V, RN) simethicone (MYLICON) chew tablet 80-160 mg (CANCELED) 80-160 mg, Oral, QID PRN (after meals and at bedtime), Gas Pain, Starting on 08/26/10 at 1437, Until 08/31/10 at 0156 2122 ($ Given - Provider: Luna Green RN) documented in this encounter Care Teams Tamper Operator Relationship Specialty Start Date End Date Unknown, Provider PCP - General 03/26/10 12/13/13 documented as of this encounter
--- OUTSIDE RECORDS SUMMARY | 2024-08-12 01:11 | XMS_ITS | Encounter Summary ---
Author Organization [facility] Address [address] [facility] [place] [address] Care Team Providers Care Movie Extra Name Role Phone Modesto Choe MD Primary Care Provider [phone] Reason for Visit * Reason Comments Consultation Ultrasound Encounter Details Date Type Department Care Team (Latest Contact Info) Description 02/26/2010 2:30 PM CDT [facility] Visit Maternal & Care at [facility] [address] [place] [address] , [address] [place] [address] Personal History of Venous Thrombosis and Embolism; Prothrombin Mutation (HCC) Social History Tobacco Use Types Packs/Day Years [...] Sign Reading Time Taken Comments Blood Pressure 112/63 02/26/2010 2:31 PM CDT Pulse 85 02/26/2010 2:31 PM CDT Temperature - - Respiratory Rate 16 02/26/2010 2:31 PM CDT Oxygen Saturation - - Inhaled Oxygen Concentration - - Weight 80.7 kg (178 lb) 02/26/2010 2:31 PM CDT Height 165.1 cm (5' 5 ) 02/26/2010 2:31 PM CDT Body Mass Index 29.62 02/26/2010 2:31 PM CDT documented in this encounter Progress Notes * Dolly Broderick RN - 02/26/2010 2:31 PM CDT Pt. here for consultation w/ Dr. Choe [facility] physician at this time. See letter for further information. Pt. here for US. See report. Copy of report faxed to office of referring physician. IE MIXER HELPER documented in this encounter Plan of Treatment Not on file documented as of this encounter Procedures Procedure Name Priority Date/Time Associated Diagnosis Comments URINALYSIS OBSTETRICS - POINT OF CARE Routine 02/26/2010 12:00 PM CDT documented in this encounter Results * URINALYSIS OBSTETRICS - POINT OF CARE (02/26/2010 12:00 PM CDT) Glucose UA negative Negative [facility] POCT TESTING Bilirubin UA negative Negative [facility] PO CT TESTING Ketone UA negatie Negative [facility] POCT TEST[facility] Specific [place] UA POCT 1.015 1.000 - 1.030 [facility] PO[facility] Blood UA negative Negative [facility] pH UA 6.5 5.0 - 8.0 pH units [facility] PO[facility] TEST[facility] Protein UA trace Negative [facility] PO[facility] TEST[facility] Urobilinogen UA 0.2 0.2 - 1.0 EU/dL [facility] PO[facility] TEST[facility] Nitrite UA negative Negative [facility] PO[facility] Leukocyte UA negative Negative [facility] PO CT TESTING QC Verified yes Yes [facility] POC T TESTING Urine specimen (specimen) URINE / Unknown 02/26/2010 12:00 PM CDT Modesto Choe MD LAB - POINT OF CARE ORDERABLES [facility] POCT TESTING [address] [place] [address] * SONOGRAM - COMPLETE (02/26/2010) Anatomical Region Laterality Modality Other Modesto Choe MD [facility] ORDERABLES documented in this encounter Visit Diagnoses Diagnosis Personal history of venous thrombosis and embolism Prothrombin mutation (HCC) Primary hypercoagulable state documented in this encounter Care Teams Movie Extra Relationship Specialty Start Date End Date Modesto Choe MD [address] [facility] [address] [place] [address] PCP - General 02/25/10 03/25/10 documented as of this encounter
--- OUTSIDE RECORDS SUMMARY | 2024-08-12 01:11 | XMS_ITS | Encounter Summary ---
Author Organization [facility] Address [address] [facility] [place] [address] Care Team Providers Care Registered Respiratory Therapist Name Role Phone Unknown, Provider Primary Care Provider Unavaila ble Encounter Details Date Type Department Care Team (Latest Contact Info) Description 08/20/2010 3:30 PM PHOTO COLORER M Procedure Visit Maternal & Care at [facility] [address] [place] [address] , [address] [place] [address] Raya Arguello MD Personal history [...] Sign Reading Time Taken Comments Blood Pressure 114/62 08/20/2010 3:15 PM PHOTO COLORER Pulse 85 08/20/2010 3:15 PM PHOTO COLORER Temperature - - Respiratory Rate - - Oxygen Saturation - - Inhaled Oxygen Concentration - - Weight - - Height - - Body Mass Index - - documented in this encounter Procedure Notes * Vivien Bello - 08/20/2010 3:46 PM CST Patient here for sonogram today O COLORER documented in this encounter Plan of Treatment Not on file documented as of this encounter Procedures Procedure Name Priority Date/Time Associated Diagnosis Comments BIOPHYSICAL PROFILE W NST Routine 08/20/2010 3:50 PM PHOTO COLORER Personal history of venous thrombosis and embolism documented in this encounter Results * BIOPHYSICAL PROFILE W NST (08/20/2010 3:50 PM PHOTO COLORER) Anatomical Region Laterality Modality Other 08/20/2010 3:50 PM PHOTO COLORER Narrative 08/20/2010 5:24 PM PHOTO COLORER ?[facility] ?[facility] ? TESTING CENTER ?FAX: ?? Pat. Name: ?DORIAN OLIVIA. No: ?[id number] Study Date: ?? 08/20/2010 ??3:50pm , Age: ? 1975, 35 Pregnancies: ?? 2, Para 1001 LMP: ?Unknown GA by 1st: ?38.4 weeks GA Selected: ??38.4 weeks (From Known E) MANOJ: ?08/31/2010 Referring : Audie Brand Marketing Coordinator: ??Vivien Bello RDMS Hist/Ind: ? Hx of DVT/ Prothrombin mutation Amniotic Fluid Index: 08.8 (07.3-23.3) Q1: 3.4 ?? Q2: 2.0 ?? Q3: 3.4 ?? Biophysical Profile: 05/05 Breathin ?? Tone: 2 ?? NST: 2 Movement: ??2 ?? AFV: ??2 CLINICAL SUMMARY Zuleta:N=Appears Normal, A=Abnormal, U=Unclear Tape Number : [id number] Study No. 11 presentation : Vertex No: ?? 1 Cardiac motion : Seen Four Chamber Heart: N Stomach/ Abdominal Wall : N Cord Insertion: N Bladder: N Kidneys: N Limbs:Upper : N Lower: ?? N Face: N Spine : ?? N Cranial Anatomy: N Diaphragm: N Placenta Location: Anterior Placental Grade : 3 Amniotic Fluid Volume: Normal Gender : Female Comments: The MANOJ selected is based on a prior ultrasound examination. The amniotic fluid volume is within normal limits. The umbilical artery S/D is 2.22, which is ??within normal limits for gestational age. The BPP score is reassuring. Impressions: Henning, alive, intrauterine at 38w 3d gestation BPP score of 10 Normal ZENIA and umbilical artery Doppler interrogation Recommendations: Follow-up at 18 - 20 week for anatomical survey. Thank you for allowing us the opportunity to care for your patient. Modesto Choe MD <Electronic Signature> ??08/20/2010 05:23pm Modesto Choe MD [facility] ORDERABLES documented in this encounter Visit Diagnoses Diagnosis Personal history of venous thrombosis and embolism documented in this encounter Care Teams Registered Respiratory Therapist Relationship Specialty Start Date End Date Unknown, Provider PCP - General 03/26/10 12/13/13 documented as of this encounter
--- OUTSIDE RECORDS SUMMARY | 2024-08-12 01:11 | XMS_ITS | Encounter Summary ---
Author Organization [facility] Address [address] [place] [address] Care Team Providers Care Aircraft Cleaner Name Role Phone Stanton Villegas MD Primary Care Provider [phone] Reason for Visit * Reason Onset Date Comments Reminder Call 07/09/2018 card mailed to adam recinos [employer] on or after 09/16/18 Encounter Details Date Type Department Care Team (Late st Contact Info) Description 07/09/2018 Telephone [facility] Medical [facility] - BIOFUELS PRODUCTION MANAGER [address] [place] [address] Lola Valdovinos MD [address] [place] [address] Reminder Call (card mailed to schedule [employer] on or after 09/16/18) Social History Tobacco Use Types Packs/Day Years Used Date Smoking Tobacco: Never Smokeless Tobacco: Never Alcohol Use Standard Drinks/Week Comments No 0 (1 standard drink = 0.6 oz pur e alcohol) Sex and Gender Information Value Date Recorded Sex Assigned at Not on file Gender Identity Not on file Sexual Orientation Not on file documented as of this encounter Plan of Treatment Not on file documented as of this encounter Visit Diagnoses Not on filedocumented in this encounter Care Teams Aircraft Cleaner Relationship Specialty Start Date End Date Stanton Villegas MD [address] [place], [place] [id number] PCP - General Family Medicine 09/15/17 documented as of this encounter
--- OUTSIDE RECORDS SUMMARY | 2024-08-12 01:11 | XMS_ITS | Encounter Summary ---
Author Organization [facility] Address [address] [place] [address] Care Team Providers Care Negative Cleaner Name Role Phone Unknown, Provider Primary Care Provider Unavaila ble Encounter Details Date Type Department Care Team (Latest Contact Info) Description 07/16/2010 8:30 AM CR[facility]HER [facility] Procedure Visit Maternal & Care at [facility] [address] [place] [address] , [address] [place] [address] Personal history of venous thrombosis and embolism [...] Sign Reading Time Taken Comments Blood Pressure 104/54 07/16/2010 9:05 AM CRUSHER Pulse 79 07/16/2010 9:05 AM CRUSHER Temperature - - Respiratory Rate - - Oxygen Saturation - - Inhaled Oxygen Concentration - - Weight - - Height - - Body Mass Index - - documented in this encounter Procedure Notes * Annel Watson MD - 07/16/2010 7:15 PM CST OUTPATIENT TESTING FORM Maternal- Medicine Outpatient Testing DATE: 07/16/2010 NAME: Paris Ramirez REFERRING PHYSICIAN: Raya Arguello INDICATION: Prothrombin mutation; hx DVT GESTATIONAL AGE: 33w3d Estimated Date of Delivery: 08/31/10 NST Objective Findings Variability: Moderate Decelerations: None Accelerations: Yes Acoustic Stimulator: No Baseline: 145 BPM Uterine Irritability: No Contractions: Not present NST Interpretation: Reactive RECOMMENDATION: Continue testing as ordered Annel Watson MD HER * Kirsty Galloway - 07/16/2010 9:09 AM CST Patient was here for BPP with NST. See imaging report HER documented in this encounter Plan of Treatment Not on file documented as of this encounter Visit Diagnoses Diagnosis Personal history of venous thrombosis and embolism- Primary documented in this encounter Care Teams Negative Cleaner Relationship Specialty Start Date End Date Unknown, Provider PCP - General 03/26/10 12/13/13 documented as of this encounter
--- OUTSIDE RECORDS SUMMARY | 2024-08-12 01:11 | XMS_ITS | Encounter Summary ---
Author Organization [facility] Address [address] [facility] [place] [address] Care Team Providers Care Larriman Helper Name Role Phone Unknown, Provider Primary Care Provider Unavaila ble Encounter Details Date Type Department Care Team (Latest Contact Info) Description 07/30/2010 3:30 PM ROLLER MILL OPERATOR M Procedure Visit Maternal & Care at [facility] [address] [place] [address] , [address] [place] [address] Raya Arguello MD Personal history [...] on file documented as of this encounter Miscellaneous Notes * Miscellaneous Scans - Interface, Scanning In - 08/14/2010 2:34 PM ROLLER MILL OPERATOR ER MILL OPERATOR documented in this encounter Plan of Treatment Not on file documented as of this encounter Procedures Procedure Name Priority Date/Time Associated Diagnosis Comments BIOPHYSICAL PROFILE W NST Routine 07/30/2010 4:16 PM ROLLER MILL OPERATOR Personal history of venous thrombosis and embolism documented in this encounter Results * BIOPHYSICAL PROFILE W NST (07/30/2010 4:16 PM ROLLER MILL OPERATOR) Anatomical Region Laterality Modality Other 07/30/2010 4:16 PM ROLLER MILL OPERATOR Narrative 07/30/2010 4:44 PM ROLLER MILL OPERATOR ?[facility] ? TESTING CENTER ?FAX: ?? Pat. Name: ?DORIAN OLIVIA Pat. No: ?[id number] Study Date: ?? 07/30/2010 ??4:16pm , Age: ? 1975, 35 Pregnancies: ?? 2, Para 1001 LMP: ?Unknown GA by 1st: ?35.4 weeks GA by US: ? 35.8 weeks GA Selected: ??35.4 weeks (From Known E) MANOJ: ?08/31/2010 Referring : Audie Conche Loader And Unloader: ??Kirsty Galloway RDMS Hist/Ind: ? Hx of DVT/ Prothrombin mutation MEASUREMENTS & AGE ? GROWTH EVALUATION Measurement ??GA ? Range ?Source ??%for GA Ratios ---- ------- ------- BPD ??8.8 cm 35.6 (32.5-38.7) Hadlock BPD 53% FL/BPD 0.80 (0.71 - 0.87) HC ??32.2 cm 36.4 (33.7-39.1) Hadlock HC ??67% FL/AC ??0.22 (0.20 - 0.24) AC ??32.0 cm 35.9 (32.9-38.9) Hadlock AC ??58% HC/AC ??1.01 (0.93 - 1.12) FL ?? 7.1 cm 36.1 (33.0-39.2) Hadlock FL ??60% CI ? 0.77 (0.70 - 0.86) GA for sonogram 35.8 wk (33.3-38.2) ?? Weight Estimate: based on (BPD,HC,AC,FL) Hadlock ?Weight: 2825 gm (3355-1490) Hadlo ? : 6lbs, 3oz ? Normal: 2524 gm (2006- 3176) Brenn ? Wt% ? 68% for 35.4 wks Heart Rate: 144.0 bpm Amniotic Fluid Index: 15.6 (07.8-24.9) Biophysical Profile: 05/05 Breathin ?? Tone: 2 ?? NST: 2 Movement: ??2 ?? AFV: ??2 CLINICAL SUMMARY Zuleta:N=Appears Normal, A=Abnormal, U=Unclear Tape Number : [id number]____ Study No. 8 presentation : Vertex No: ?? 1 Cardiac motion : Seen Four Chamber Heart: N Stomach/ Abdominal Wall : N Cord Insertion: N Bladder: N Kidneys: N Limbs:Upper : N Lower: ?? N Face: N Spine : ?? N Cranial Anatomy: N Diaphragm: N Placenta Location: Anterior Placental Grade : 2 Amniotic Fluid Volume: Normal Gender : Female____ Comments: The measurements today are consistent with appropriate growth compared to previous examination. The MANOJ selected is based on a prior ultrasound examination (confirmed). The amniotic fluid volume is within normal limits. The BPP score is reassuring. Impression: Henning, alive, intrauterine at 35w 3d gestation Normal placentation, fluid level and interval growth at 68% BPP score of 10 Recommendations: Follow-up surveillance as scheduled. Thank you for allowing us the opportunity to care for your patient. Modesto Choe MD <Electronic Signature> ??07/30/2010 04:44pm Modesto Choe MD [facility] ORDERABLES documented in this encounter Visit Diagnoses Diagnosis Personal history of venous thrombosis and embolism documented in this encounter Care Teams Larriman Helper Relationship Specialty Start Date End Date Unknown, Provider PCP - General 03/26/10 12/13/13 documented as of this encounter
--- OUTSIDE RECORDS SUMMARY | 2024-08-12 01:11 | XMS_ITS | Encounter Summary ---
Author Organization [facility] Address [address] [place] [address] Care Team Providers Care Captain Fishing Vessel Name Role Phone Modesto Choe MD Primary Care Provider Unknown, Provider Primary Care Provider Stanton Eedn MD Primary Care Provider [phone] Encounter Details Date Type Department Care Team (Late st Contact Info) Description 02/26/2010 Orders Only Maternal & Care at [facility] [address] [facility] , [address] [place] [address] Personal History of Venous Thrombosis [...] Procedure Name Priority Date/Time Associated Diagnosis Comments SONOGRAM - COMPLETE Routine 02/26/2010 Personal History of Venous Thrombosis and Embolism Prothrombin Mutation (HCC) documented in this encounter Results * SONOGRAM - COMPLETE (02/26/2010) Anatomical Region Laterality Modality Other Modesto Choe MD [facility] ORDERABLES documented in this encounter Visit Diagnoses Diagnosis Personal history of venous thrombosis and embolism Prothrombin mutation (HCC) Primary hypercoagulable state documented in this encounter Care Teams Captain Fishing Vessel Relationship Specialty Start Date End Date Modesto Choe MD [address] [facility] [address] [place] [address] PCP - General 02/25/10 03/25/10 Unknown, Provider PCP - General 03/26/10 12/13/13 Stanton Villegas MD [address] [place] [address] PCP - General Family Medicine 09/15/17 documented as of this encounter
--- OUTSIDE RECORDS SUMMARY | 2024-08-12 01:11 | XMS_ITS | Clinical Summary ---
Author Organization [facility] Address [address] [place] [address] Care Team Providers Care Nut Chopper Name Role Phone Stanton Villegas MD Primary Care Provider [phone] Source Comments [facility],non-owned Affiliates and Associated Physician Practices is amultiple site organization consisting of ambulatory clinics and hospital sitesin [place] and [place]. This disclosure is being madepursuant to the Care Everywhere program and may not contain all information available regarding this patient. Last updated 18.[facility] Allergies No known active allergies Medications * Be aware that medications may not be up to date on this document. Alwaysverify current medications with the patient. Medication Sig Dispensed Refills Start Date End Date Status amphetamine-dextroamph etamine (ADDERALL) 30 MG tablet 08/08/2017 Active buPROPion XL 24hr (WELLBUTRIN-XL) 150 MG tablet 07/10/2017 Active amphetamine-dextroamph etamine (ADDERALL) 5 MG tablet 08/08/2017 Active norethindrone (KEREN) 0.35 MG tablet Take 1 tablet by mouth once daily 3 packet 3 09/15/2017 Active Active Problems Problem Noted Date Diagnosed Date Prothrombin mutation 02/18/2010 Personal history of venous thrombosis and emboli sm 01/09/2010 Immunizations Name Administration Dates Next Due TDAP (7yrs+) 08/29/2010 Family History Medical History Relation Name Comments Diabetes - Type 2 Father Hypertension Father Stroke Father CVA Maternal Grandmother Diabetes Mother CVA Paternal Grandfather Relation Name Status Comments Father Maternal Grandfather Maternal Grandmother Alive Mother Alive Paternal Grandfather Paternal Grandmother Alive Social History Tobacco Use Types Packs/Day Years Used Date Smoking Tobacco: Never Smokeless Tobacco: Never Alcohol Use Standard Drinks/Week Comments No 0 (1 standard drink = 0.6 oz pur e alcohol) Sex and Gender Information Value Date Recorded Sex Assigned at Not on file Gender Identity Not on file Sexual Orientation Not on file Last Filed Vital Signs Vital Sign Reading Time Taken Comments Blood Pressure 132/80 09/15/2017 4:09 PM WINDOW CLEANER Pulse 80 08/30/2010 12:25 AM WINDOW CLEANER Temperature 36.3 ??C (97.4 ??F) 08/30/2010 8:30 AM CS T Respiratory Rate 18 08/30/2010 8:30 AM WINDOW CLEANER Oxygen Saturation 97% 08/26/2010 1:18 PM WINDOW CLEANER Inhaled Oxygen Concentration - - Weight 87.2 kg (192 lb 3.2 oz) 09/15/2017 4:09 P M WINDOW CLEANER Height 165.1 cm (5' 5 ) 09/15/2017 4:09 PM WINDOW CLEANER Body Mass Index 31.98 09/15/2017 4:09 PM WINDOW CLEANER Plan of Treatment Health Maintenance Due Date Last Done Comments COLOGUARD (AGES 45-75) - COL ON CA SCREENING 1975 COLON MONITORING 1975 COLONOSCOPY - COLON CA SCREENING 1976 CT COLONOGRAPHY - COLON CA SCREENING 1975 Colorectal Cancer Screening 1975 FIT - COLON CA SCREENING 1976 FLEX SIG - COLON CA SCREENING 1975 LIPID TESTING 1975 MAMMOGRAM 1975 HIV SCREENING 1991 HEPATITIS C SCREENING 07/21/1994 HEPATITIS B VACCINE (1 of 3 - 19+ 3-dose series) 1995 SCREENING FOR DIABETES 09/15/2017 DTAP/TDAP/TD VACCINES (2 - T d or Tdap) 08/29/2020 08/29/2010 PAP with HPV 09/15/2022 09/15/2017 COVID-19 VACCINE ( - 2023-2 5 season) 2024 INFLUENZA VACCINE (#1) 2024 DEPRESSION SCREENING 07/27/2024 ZOSTER VACCINE (1 of 2) 2026 HIB VACCINE Aged Out No longer eligi ble based on patient's age to complete this topic HPV VACCINE Aged Out No longer eligi ble based on patient's age to complete this topic MENINGOCOCCAL (Group B) VACCINE Aged Out No longer eligible based on patient's age to complete this topic MENINGOCOCCAL VACCINE Aged Out No christina lay eligible based on patient's age to complete this topic PNEUMOCOCCAL VACCINE Aged Out No long er eligible based on patient's age to complete this topic Procedures Procedure Name Priority Date/Time Associated Diagnosis Comments PAP IG LB+HPV APTIMA Routine 09/15/2017 4:27 PM WINDOW CLEANER Well woman exam from Last 3 Months or Most Recently Relevant to Health Maintenance Results * PAP IG LB+HPV APTIMA (09/15/2017 4:27 PM WINDOW CLEANER) Diagnosis [facility] ACCOUNT BILL Comment:NEGATIVE FOR INTRAEP ITHELIAL LESION AND MALIGNANCY. Specimen Adequacy [facility] ACCOUNT BILL Comment:Satisfactory for yonatan luation. No endocervical component is identified. Clinician Provided ICD10 [facility] ACCOUNT BILL Comment:Z01.419 Performed by [facility] ACCOUNT BILL Comment:Yi Maxwell, [facility] otechnologist (ASCP) Comment . [facility] ACCOUNT BILL Note [facility] ACCOUNT BILL Comment: The Pap smear is a screening test designed to aid in the detection of premalignant and malignant conditions of the uterine cervix. ??It is not a diagnostic procedure and should not be used as the sole means of detecting cervical cancer. ??Both false-positive and false-negative reports do occur. ? . IGLBP CPT Code Automation [facility] ACCOUNT BILL Comment: This liquid based ThinPrep(R) pap test was screened with the use of an image guided system. Human papillomavirus Aptima Negative Negative [facility] ACCOUNT BILL Comment: This test detects fourteen high-risk HPV types (16/18/31/33/35/39/45/ 51/52/56/58/59/66/68) without differentiation. PART OF UTERINE CERVIX / Unknown 09/15/2017 4:27 PM WINDOW CLEANER 09/16/2017 Narrative [facility] ACCOUNT BILL - 09/17/2017 5:11 PM WINDOW CLEANER No. of containers..01 ThinPrep Vial Resulting Agency Comment [facility] [address] [facility] ??Geovanny DONG [phone] Lola Valdovinos MD LAB - PATHOLOGY/CYT OLOGY ORDERABLES [facility] ACCOUNT BILL [address] [place] [address] from Last 3 Months or Most Recently Relevant to Health Maintenance Advance Directives * Full Code (Latest Code Status on File) Date Activated Date Inactivated Comments 08/26/2010 9:52 AM 08/26/2010 2:37 PM Care Teams Nut Chopper Relationship Specialty Start Date End Date Stanton Villegas MD [address] [place] [address] PCP - General Family Medicine 09/15/17
--- OUTSIDE RECORDS SUMMARY | 2024-08-12 01:11 | XMS_ITS | Encounter Summary ---
Author Organization [facility] Address [address] [place] [address] Care Team Providers Care Computer Network Support Specialist Name Role Phone Unknown, Provider Primary Care Provider Unavaila ble Reason for Visit * Reason Comments Consultation Encounter Details Date Type Department Care Team (Latest Contact Info) Description 06/04/2010 3:15 PM VENDING SERVICE TECHNICIAN M Visit Maternal & Care at [facility] [address] [facility] [facility] [facility] , [address] [place] [address] Raya Arguello MD Personal history of venous thrombosis and embolism; Prothrombin mutation (HCC) Social History Tobacco Use Types Packs/Day [...] Sign Reading Time Taken Comments Blood Pressure 136/71 06/04/2010 2:23 PM VENDING SERVICE TECHNICIAN Pulse 91 06/04/2010 2:23 PM VENDING SERVICE TECHNICIAN Temperature - - Respiratory Rate - - Oxygen Saturation - - Inhaled Oxygen Concentration - - Weight 91.6 kg (202 lb) 06/04/2010 2:23 PM VENDING SERVICE TECHNICIAN Height - - Body Mass Index 33.61 03/26/2010 8:53 AM CDT documented in this encounter Progress Notes * Gabriela Martino RN - 06/04/2010 2:25 PM CST F/u for history DVT. On lovenox daily. ING SERVICE TECHNICIAN documented in this encounter Miscellaneous Notes * Miscellaneous Scans - Document, Scanned - 01/15/2012 11:44 AM CDT * Miscellaneous Scans - Interface, Scanning In - 06/15/2010 3:38 PM VENDING SERVICE TECHNICIAN ING SERVICE TECHNICIAN documented in this encounter Plan of Treatment Not on file documented as of this encounter Procedures Procedure Name Priority Date/Time Associated Diagnosis Comments SONOGRAM - COMPLETE Routine 06/04/2010 Personal history of venous thrombosis and embolism Prothrombin mutation (HCC) documented in this encounter Results * SONOGRAM - COMPLETE (06/04/2010) Anatomical Region Laterality Modality Other Yonny Day MD [facility] ORDERABLES documented in this encounter Visit Diagnoses Diagnosis Personal history of venous thrombosis and embolism Prothrombin mutation (HCC) Primary hypercoagulable state documented in this encounter Care Teams Computer Network Support Specialist Relationship Specialty Start Date End Date Unknown, Provider PCP - General 03/26/10 12/13/13 documented as of this encounter
--- OUTSIDE RECORDS SUMMARY | 2024-08-12 01:11 | XMS_ITS | Encounter Summary ---
Author Organization [facility] Address [address] [place] [address] Care Team Providers Care Sales Order Processor Name Role Phone Unknown, Provider Primary Care Provider Unavaila ble Encounter Details Date Type Department Care Team (Latest Contact Info) Description 07/09/2010 3:00 PM WILDLIFE ECOLOGIST M Procedure Visit Maternal & Care at [facility] [address] [address] [facility] , [address] [place] [address] Raya Arguello MD Personal history [...] Sign Reading Time Taken Comments Blood Pressure 103/54 07/09/2010 3:15 PM WILDLIFE ECOLOGIST Pulse 80 07/09/2010 3:15 PM WILDLIFE ECOLOGIST Temperature - - Respiratory Rate - - Oxygen Saturation - - Inhaled Oxygen Concentration - - Weight - - Height - - Body Mass Index - - documented in this encounter Procedure Notes * Modesto Choe MD - 07/10/2010 12:50 PM CST OUTPATIENT TESTING FORM Maternal- Medicine Outpatient Testing DATE: 07/09/2010 NAME: Dorian Olivia REFERRING PHYSICIAN: Raya Arguello INDICATION: History of DVT GESTATIONAL AGE: 32w4d Estimated Date of Delivery: 08/31/10 NST Objective Findings Variability: Moderate Decelerations: None Accelerations: Yes Acoustic Stimulator: No Baseline: 130 BPM Uterine Irritability: No Contractions: Not present NST Interpretation: Reactive RECOMMENDATION: Continue surveillance as scheduled. Modesto Choe MD [facility] LIFE ECOLOGIST * Kirsty Galloway - 07/09/2010 3:39 PM CST Patient was here for BPP with NST. See imaging report LIFE ECOLOGIST documented in this encounter Plan of Treatment Not on file documented as of this encounter Procedures Procedure Name Priority Date/Time Associated Diagnosis Comments BIOPHYSICAL PROFILE W NST Routine 07/09/2010 3:29 PM WILDLIFE ECOLOGIST Personal history of venous thrombosis and embolism documented in this encounter Results * BIOPHYSICAL PROFILE W NST (07/09/2010 3:29 PM WILDLIFE ECOLOGIST) Anatomical Region Laterality Modality Other 07/09/2010 3:29 PM WILDLIFE ECOLOGIST Narrative 07/16/2010 7:17 PM WILDLIFE ECOLOGIST ?[facility] ?[facility] ? TESTING CENTER ?FAX: ?? Pat. Name: ?ODRIAN OLIVIA. No: ?[id number] Study Date: ?? 07/16/2010 ??8:44am , Age: ? 1975, 34 Pregnancies: ?? 2, Para 1001 LMP: ?Unknown GA by 1st: ?33.4 weeks GA Selected: ??33.4 weeks (From Known E) MANOJ: ?08/31/2010 Referring : [employer] Nurse: ??Kirsty Galloway RDMS Hist/Ind: ? Hx of DVT/ Prothrombin mutation Heart Rate: 162.0 bpm Amniotic Fluid Index: 17.1 (08.2-24.6) Q1: 3.7 ?? Q2: 6.0 ?? Q3: 4.1 ?? Q4: 3.4 ?? Biophysical Profile: 05/05 Breathin ?? Tone: 2 ?? NST: 2 Movement: ??2 ?? AFV: ??2 CLINICAL SUMMARY Zuleta:N=Appears Normal, A=Abnormal, U=Unclear Tape Number : [id number]____ Study No. 7 presentation : Vertex No: ?? 1 Cardiac [...] normal limits. The BPP score is reassuring Thank you for allowing us the opportunity to care for your patient. Annel Watson MD <Electronic Signature> ??07/16/2010 07:17pm Modesto Choe MD [facility] ORDERABLES documented in this encounter Visit Diagnoses Diagnosis Personal history of venous thrombosis and embolism- Primary documented in this encounter Care Teams Sales Order Processor Relationship Specialty Start Date End Date Unknown, Provider PCP - General 03/26/10 12/13/13 documented as of this encounter
--- OUTSIDE RECORDS SUMMARY | 2024-08-12 01:11 | XMS_ITS | Encounter Summary ---
Author Organization [facility] Address [address] [place] [address] Care Team Providers Care Internal Consultant Name Role Phone Unknown, Provider Primary Care Provider Unavaila ble Encounter Details Date Type Department Care Team (Latest Contact Info) Description 08/13/2010 2:12 PM AGER TENDER - 08/13/2010 11:59 PM AGER TENDER Hospital Encounter [facility] General Lab [address] [place] [address] Raya Arguello MD Obstetrics Discharge Disposition: Home [...] on file documented as of this encounter Medications at Time of Discharge [...] Take 325 mg by mouth daily. 09/15/2017 heparin 15147 UNITS/ML 1.5 ml-precious&polyn&HC 3.5-41616-7 OT SUSP 5 ml-NaCl 0.9% inj 3.5 mlIndications:Persona l history of venous thrombosis and embolism 2 times daily. 60 mL 1 08/06/2010 08/30/2010 VITAMIN POIndications:Kylie kincaid history of venous thrombosis and embolism Take 1 Tab by mouth daily. 09/15/2017 documented as of this encounter Procedure Notes * Document, Scanned - 03/22/2011 10:28 AM CDTAssociated Order(s): LAB RESULTS ORDER documented in this encounter Miscellaneous Notes * Miscellaneous Scans - Document, Scanned - 01/21/2012 11:14 AM CDT * Miscellaneous Scans - Document, Scanned - 04/06/2011 3:00 PM CDT * Miscellaneous Scans - Document, Scanned - 04/06/2011 3:00 PM CDT * Miscellaneous Scans - Document, Scanned - 08/14/2010 7:20 AM AGER TENDER documented in this encounter Plan of Treatment Not on file documented as of this encounter Procedures Procedure Name Priority Date/Time Associated Diagnosis Comments LAB RESULTS ORDER 03/22/2011 10: 28 AM CDT CBC W AUTO DIFFERENTIAL Routine 08/13/2010 2:53 PM AGER TENDER documented in this encounter Results * LAB RESULTS ORDER (03/22/2011 10:28 AM CDT) Narrative Transcriptions Document, Scanned - 03/22/2011 10:28 AM CDT Scanned Document LAB - THERAPEUTIC DR JACOB MONITORING ORDERABLES * (ABNORMAL) CBC W AUTO DIFFERENTIAL (08/13/2010 2:53 PM AGER TENDER) WBC 6.6 4.5 - 11.0 1000/mm3 [facility] RBC 3.55(L) 4.2 - 5.4 10X6 [facility] Hemoglobin 10.1(L) 12.0 - 16.0 gm/dl [facility] Hematocrit 30.2(L) 36.0 - 48.0 % [facility] MCV 85.1 80.0 - 99.0 fl [facility] MCH 28.5 25.0 - 31.0 pg [facility] MCHC 33.4 32.0 - 36.0 gm/dl [facility] RDW 13.6 11.5 - 14.5 % [facility] Platelet Count 176 130.0 - 400.0 1000/mm3 [facility] Granulocytes % 68.1 40.0 - 70.0 % [facility] Lymphocytes % 22.4 22.0 - 40.0 % [facility] Monocytes % 8.7 2.0 - 10.0 % [facility] Eosinophils % 0.6 0.0 - 6.0 % [facility] Basophils % 0.2 0.0 - 3.0 % [facility] Granulocytes Absolute 4.46 1.8 - 7.7 [facility] Lymphocytes Absolute 1.47 1.0 - 5.4 [facility] Monocytes Absolute 0.57 0.1 - 1.1 [facility] Eosinophils Absolute 0.04 0.0 - 0.7 [facility] Basophils Absolute 0.01 0.0 - 0.2 [facility] Comment Manual Diff Not Indicated [facility] BLOOD SPECIMEN / Unknown 08/13/2010 2:53 PM AGER TENDER 08/13/2010 2:53 PM AGER TENDER Raya Arguello MD LAB - HEMATOLOGY ORD ERABLES [facility] Organization Address City/State/[facility] Co de Phone Number [facility] [address] [place] [address] documented in this encounter Visit Diagnoses Not on filedocumented in this encounter Care Teams Internal Consultant Relationship Specialty Start Date End Date Unknown, Provider PCP - General 03/26/10 12/13/13 documented as of this encounter
--- OUTSIDE RECORDS SUMMARY | 2024-08-12 01:11 | XMS_ITS | Encounter Summary ---
Author Organization [facility] Address [address] [facility] [place] [address] Care Team Providers Care Director Investment Banking Name Role Phone Unknown, Provider Primary Care Provider Unavaila ble Reason for Visit * Reason Comments Consultation Ultrasound Encounter Details Date Type Department Care Team (Latest Contact Info) Description 04/23/2010 2:30 PM CDT MFM Visit Maternal & Care at [facility] [address] [address] , [address] [place] [address] Raya Arguello MD Prothrombin mutation (HCC); Personal history of venous thrombosis and embolism; Primary hypercoagulable state (HCC) Social History Tobacco Use Types Packs/Day [...] Sign Reading Time Taken Comments Blood Pressure 134/69 04/23/2010 2:35 PM CDT Pulse 88 04/23/2010 2:35 PM CDT Temperature - - Respiratory Rate 18 04/23/2010 2:35 PM CDT Oxygen Saturation - - Inhaled Oxygen Concentration - - Weight 89.8 kg (198 lb) 04/23/2010 2:35 PM CDT Height - - Body Mass Index 32.95 03/26/2010 8:53 AM CDT documented in this encounter Progress Notes * Linda Estrada, RN - 04/23/2010 2:39 PM CDT Pt. here for consultation w/ MFM physician at this time. See letter for further information. Pt. here for US. See report. Copy of report faxed to office of referring physician. Pt denies any contractions, but having some mild lower abdominal pain. Denies any urgency or burning with urination. documented in this encounter Plan of Treatment Scheduled Orders Name Type Priority Associated Diagnoses Orde r Schedule CBC W AUTO DIFFERENTIAL Lab Routine Prothrombin mutation (HCC) Personal history of venous thrombosis and embolism Primary hypercoagulable state (HCC) Ordered: 04/23/2010 documented as of this encounter Procedures Procedure Name Priority Date/Time Associated Diagnosis Comments URINALYSIS OBSTETRICS - POINT OF CARE Routine 04/23/2010 12:00 PM CDT Prothrombin mutation (HCC) Personal history of venous thrombosis and embolism SONOGRAM - COMPLETE Routine 04/23/2010 Prothrombin mutation (HCC) Personal history of venous thrombosis and embolism documented in this encounter Results * URINALYSIS OBSTETRICS - POINT OF CARE (04/23/2010 12:00 PM CDT) Glucose UA Negative Negative [facility] Bilirubin UA Negative Negative [facility] PO CT TESTING Ketone UA Negative Negative [facility] Specific [place] UA POCT 1.010 1.000 - 1.030 [facility] Blood UA Negative Negative [facility] pH UA 6.5 5.0 - 8.0 pH units [facility] Protein UA Negative Negative [facility] Urobilinogen UA 0.2 0.2 - 1.0 EU/dL [facility] Nitrite UA Negative Negative [facility] Leukocyte UA Negative Negative [facility] PO CT TESTING QC Verified Yes [facility] POC T TESTING Urine specimen (specimen) URINE / Unknown 04/23/2010 12:00 PM CDT Yonny Day MD LAB - POINT OF CARE ORDERABLES [facility] [address] [place] [address] * SONOGRAM - COMPLETE (04/23/2010) Anatomical Region Laterality Modality Other Modesto Choe MD [facility] ORDERABLES documented in this encounter Visit Diagnoses Diagnosis Prothrombin mutation (HCC) Primary hypercoagulable state Personal history of venous thrombosis and embolism Primary hypercoagulable state (HCC) Primary hypercoagulable state documented in this encounter Care Teams Director Investment Banking Relationship Specialty Start Date End Date Unknown, Provider PCP - General 03/26/10 12/13/13 documented as of this encounter
--- OUTSIDE RECORDS SUMMARY | 2024-08-12 01:11 | XMS_ITS | Encounter Summary ---
Author Organization [facility] Address [address] [place] [address] Care Team Providers Care Iv Rn Name Role Phone Unknown, Provider Primary Care Provider Unavaila ble Reason for Visit * Reason Comments Consultation Ultrasound Encounter Details Date Type Department Care Team (Latest Contact Info) Description 03/26/2010 9:00 AM CDT MFM Visit Maternal & Care at [facility] [address] [address] , [address] [place] [address] Personal History of Venous Thrombosis [...] Sign Reading Time Taken Comments Blood Pressure 100/68 03/26/2010 8:53 AM CDT Pulse 67 03/26/2010 8:53 AM CDT Temperature - - Respiratory Rate 18 03/26/2010 8:53 AM CDT Oxygen Saturation - - Inhaled Oxygen Concentration - - Weight 83 kg (183 lb) 03/26/2010 8:53 AM CDT Height 165.1 cm (5' 5 ) 03/26/2010 8:53 AM CDT Body Mass Index 30.45 03/26/2010 8:53 AM CDT documented in this encounter Procedure Notes * Document, Scanned - 04/10/2011 10:55 AM CDTAssociated Order(s): LAB RESULTS ORDER documented in this encounter Miscellaneous Notes * Miscellaneous Scans - Document, Scanned - 04/06/2011 3:00 PM CDT * Miscellaneous Scans - Document, Scanned - 04/06/2011 3:00 PM CDT documented in this encounter Plan of Treatment Not on file documented as of this encounter Procedures Procedure Name Priority Date/Time Associated Diagnosis Comments LAB RESULTS ORDER 04/10/2011 10: 55 AM CDT SONOGRAM - COMPLETE Routine 03/26/2010 Personal History of Venous Thrombosis and Embolism Prothrombin Mutation (HCC) URINALYSIS OBSTETRICS - POINT OF CARE Routine 03/26/2010 documented in this encounter Results * LAB RESULTS ORDER (04/10/2011 10:55 AM CDT) Narrative Transcriptions Document, Scanned - 04/10/2011 10:55 AM CDT Scanned Document LAB - THERAPEUTIC DR UG MONITORING ORDERABLES * URINALYSIS OBSTETRICS - POINT OF CARE (03/26/2010) Glucose UA negative Negative [facility] Bilirubin UA negative Negative [facility] PO CT TESTING Ketone UA negative Negative [facility] PO[facility] Specific [place] UA POCT 1.005 1.000 - 1.030 [facility] Blood [...] TESTING Urine specimen (specimen) URINE / Unknown 03/26/2010 Modesto Choe MD LAB - POINT OF CARE ORDERABLES [facility] [address] [place] [address] * SONOGRAM - COMPLETE (03/26/2010) Anatomical Region Laterality Modality Other Modesto Choe MD [facility] ORDERABLES documented in this encounter Visit Diagnoses Diagnosis Personal history of venous thrombosis and embolism Prothrombin mutation (HCC) Primary hypercoagulable state documented in this encounter Care Teams Iv Rn Relationship Specialty Start Date End Date Unknown, Provider PCP - General 03/26/10 12/13/13 documented as of this encounter
--- OUTSIDE RECORDS SUMMARY | 2024-08-12 01:11 | XMS_ITS | Encounter Summary ---
Author Organization [facility] Address [address] [facility] [place] [address] Care Team Providers Care Pals Nurse Name Role Phone Modesto Choe MD Primary Care Provider [phone] Encounter Details Date Type Department Care Team (Latest Contact Info) Description 02/26/2010 10:00 AM CDT - 02/26/2010 11:59 PM CDT Hospital Encounter [facility] [address] [place] [address] Discharge Disposition: Home or Self Care Social [...] Sign Reading Time Taken Comments Blood Pressure - - Pulse - - Temperature - - Respiratory Rate - - Oxygen Saturation - - Inhaled Oxygen Concentration - - Weight 78.9 kg (174 lb) 02/26/2010 11:00 AM CDT Height 165.1 cm (5' 5 ) 02/26/2010 11:00 AM CDT Body Mass Index 28.96 02/26/2010 11:00 AM CDT documented in this encounter Medications at Time of Discharge Medication Sig Dispensed Refills Start Date End Date enoxaparin (LOVENOX) injectionIndications: Personal history of venous thrombosis and embolism Inject 40 mg subcutaneously daily. 4.2 2 01/14/2010 09/15/2017 VITAMIN POIndications:Persona l history of venous thrombosis and embolism Take 1 Tab by mouth daily. 09/15/2017 documented as of this encounter Progress Notes * Luna Mejia RD/SERINA - 02/26/2010 11:35 AM CDT Balanced Nutrition During MNT Paris Ramirez 34 y.o. PCP Modesto Choe MD Session Number: Session I Secondary Diagnoses/Co-morbidities Secondary Diagnoses/Co-morbidities: () Clinical Outcomes Height: 5' 5 (165.1 cm) Pre Weight: 165 lb (74.844 kg) Weight: 174 lb (78.926 kg) Gestational Age in weeks: 13 Expected Date of Delivery: 08/31/10 MNT Goals/Outcomes Goal: Kcalories: 2000 Actual: Kcalories: 9720-1413 Knowledge and Behavioral Outcomes I - Eating meals/snacks at consistent times: Discussed C - Eats meals/snacks at consistent times: Rarely Demonstrated I - Choosing appropriate kinds/amounts of food: Discussed C - Chooses appropriate kinds/amounts of food: Sometimes Demonstrated I - Use of meal planning system: Discussed C - Demonstrates use of meal planning system: Consistently Demonstrated I - Reading food labels accurately: Discussed C - Reads food labels accurately : Often Demonstrated I - Appropriate weight gain during : Discussed C - States appropriate weight gain during : Often Demonstrated I - Participation in regular activity/plan: Discussed C - Participates in regular activity/plan: (per MD: avoid contact sports) I - Taking vitamins/mineral supplements: Discussed C - Takes vitamin/mineral supplements : Consistently Demonstrated I - Abstaining from smoking/alcohol use: Discussed C - Abstains from smoking/alcohol use : Consistently Demonstrated Overall Compliance Potential Comprehension: Consistently Demonstrated Receptivity: Consistently Demonstrated Adherence: Often Demonstrated Session I Information Session Date: 02/26/10 Session beginning time: 1005 Session ending time: 1059 Session total minutes: 54 Minutes Materials provided: Food Safety and Shopping Tips for , one week of sample menus, My Pyramid, booklet: Healthy Eating for You and Your Baby. Goals: Adequate nutrition during ; gradual weight gain of 25 pounds. Eat three meals per day, with nutrient dense foods from each of the food groups according to meal plan provided. Paris will call RD with questions or concerns. Luna Mejia RD,SERINA documented in this encounter Miscellaneous Notes * Miscellaneous Scans - Document, Scanned - 02/26/2010 12:00 AM CDT documented in this encounter Plan of Treatment Not on file documented as of this encounter Visit Diagnoses Not on filedocumented in this encounter Care Teams Pals Nurse Relationship Specialty Start Date End Date Modesto Choe MD [address] [address] PCP - General 02/25/10 03/25/10 documented as of this encounter
--- OUTSIDE RECORDS SUMMARY | 2024-08-12 01:11 | XMS_ITS | Patient Health Summary ---
Author Organization [facility] Address [address] [place] [address] Care Team Providers [employer] Founder Name Role Phone Stanton Villegas MD Primary Care Provider [phone] Note from [facility],non-owned Affiliates and Associated Physician Practices is amultiple site organization consisting of ambulatory clinics and hospital sitesin [place], [place], [place] and [place]. This disclosure is being madepursuant to the Care Everywhere program and may not contain all information available regarding this patient. Last updated 18.[facility] Allergies No known active allergies Medications * Be aware that medications may not be up to date on this document. Alwaysverify current medications with the patient. * amphetamine-dextroamphetamine (ADDERALL) 30 MG tablet(Started 08/08/2017) * buPROPion XL 24hr (WELLBUTRIN-XL) 150 MG tablet(Started 07/10/2017) * amphetamine-dextroamphetamine (ADDERALL) 5 MG tablet(Started 08/08/2017) * norethindrone (KEREN) 0.35 MG tablet(Started 09/15/2017) Take 1 tablet by mouth once daily 3 refills remaining Active Problems Problem Noted Date Diagnosed Date Prothrombin mutation 02/18/2010 Personal history of venous thrombosis and emboli sm 01/09/2010 Immunizations * TDAP (7yrs+)(Given 08/29/2010) Social History Tobacco Use Types Packs/Day Years [...] Comments Blood Pressure 132/80 09/15/2017 4:09 PM NURSING PROGRAM COORDINATOR Pulse 80 08/30/2010 12:25 AM NURSING PROGRAM COORDINATOR Temperature 36.3 ??C (97.4 ??F) 08/30/2010 8:30 AM CS T Respiratory Rate 18 08/30/2010 8:30 AM NURSING PROGRAM COORDINATOR Oxygen Saturation 97% 08/26/2010 1:18 PM NURSING PROGRAM COORDINATOR Inhaled Oxygen Concentration - - Weight 87.2 kg (192 lb 3.2 oz) 09/15/2017 4:09 P M NURSING PROGRAM COORDINATOR Height 165.1 cm (5' 5 ) 09/15/2017 4:09 PM NURSING PROGRAM COORDINATOR Body Mass Index 31.98 09/15/2017 4:09 PM NURSING PROGRAM COORDINATOR Procedures * PAP IG LB+HPV APTIMA(Performed 09/15/2017) Performed for Well woman exam * LAB RESULTS ORDER(Performed 01/14/2012) * LAB RESULTS ORDER(Performed 04/10/2011) * LAB RESULTS ORDER(Performed 04/06/2011) * LAB RESULTS ORDER(Performed 03/22/2011) * LAB RESULTS ORDER(Performed 11/02/2010) * GROSS + MICRO EXAM(Performed 08/27/2010) * HGB HCT PANEL(Performed 08/27/2010) * BLOOD GASES ARTERIAL(Performed 08/26/2010) * BLOOD GASES ARTERIAL(Performed 08/26/2010) * PTT(Performed 08/26/2010) * TYPE + SCREEN PANEL(Performed 08/26/2010) * CBC W AUTO DIFFERENTIAL(Performed 08/26/2010) * BIOPHYSICAL PROFILE W NST(Performed 08/20/2010) Performed for Personal history of venous thrombosis and embolism * BIOPHYSICAL PROFILE W NST(Performed 08/13/2010) Performed for Personal history of venous thrombosis and embolism * CBC W AUTO DIFFERENTIAL(Performed 08/13/2010) * URINALYSIS OBSTETRICS - POINT OF CARE(Performed 08/06/2010) Performed for Personal history of venous thrombosis and embolism * BIOPHYSICAL PROFILE W NST(Performed 08/06/2010) Performed for Personal history of venous thrombosis and embolism * BIOPHYSICAL PROFILE W NST(Performed 07/30/2010) Performed for Personal history of venous thrombosis and embolism * BIOPHYSICAL PROFILE W NST(Performed 07/09/2010) Performed for Personal history of venous thrombosis and embolism * URINALYSIS OBSTETRICS - POINT OF CARE(Performed 07/02/2010) Performed for Personal history of venous thrombosis and embolism * URINALYSIS OBSTETRICS - POINT OF CARE(Performed 06/04/2010) * SONOGRAM - COMPLETE(Performed 06/04/2010) Performed for Personal history of venous thrombosis and embolism, Prothrombin mutation (HCC) * SONOGRAM - COMPLETE(Performed 06/02/2010) Performed for Personal history of venous thrombosis and embolism * CBC W AUTO DIFFERENTIAL(Performed 04/23/2010) * URINALYSIS OBSTETRICS - POINT OF CARE(Performed 04/23/2010) Performed for Prothrombin mutation (HCC), Personal history of venous thrombosis and embolism * SONOGRAM - COMPLETE(Performed 04/23/2010) Performed for Prothrombin mutation (HCC), Personal history of venous thrombosis and embolism * SONOGRAM - COMPLETE(Performed 03/26/2010) Performed for Personal History of Venous Thrombosis and Embolism, Prothrombin Mutation (HCC) * URINALYSIS OBSTETRICS - POINT OF CARE(Performed 03/26/2010) * URINALYSIS OBSTETRICS - POINT OF CARE(Performed 02/26/2010) * SONOGRAM - COMPLETE(Performed 02/26/2010) Performed for Personal History of Venous Thrombosis and Embolism, Prothrombin Mutation (HCC) * URINALYSIS OBSTETRICS - POINT OF CARE(Performed 01/29/2010) * URINALYSIS OBSTETRICS - POINT OF CARE(Performed 01/14/2010) Performed for Personal History of Venous Thrombosis and Embolism * CARDIOLIPIN ANTIBODY IGG(Performed 01/14/2010) Performed for Personal History of Venous Thrombosis and Embolism * CARDIOLIPIN ANTIBODY IGM(Performed 01/14/2010) Performed for Personal History of Venous Thrombosis and Embolism * LUPUS ANTICOAGULANT PANEL W RFLX(Performed 01/14/2010) Performed for Personal History of Venous Thrombosis and Embolism * PROTEIN C ACTIVITY(Performed 01/14/2010) Performed for Personal History of Venous Thrombosis and Embolism * ANTITHROMBIN III ANTIGEN(Performed 01/14/2010) Performed for Personal History of Venous Thrombosis and Embolism * PROTHROMBIN [id number] PANEL(Performed 01/14/2010) Performed for Personal History of Venous Thrombosis and Embolism * FACTOR V LEIDEN MUTATION PANEL(Performed 01/14/2010) Performed for Personal History of Venous Thrombosis and Embolism * CARDIOLIPIN ANTIBODY IGA(Performed 01/14/2010) Performed for Personal History of Venous Thrombosis and Embolism * BETA-2 GLYCOPROTEIN 1 ANTIBODY IGG/IGM PANEL(Performed 01/14/2010) Performed for Personal History of Venous Thrombosis and Embolism * CBC W AUTO DIFFERENTIAL(Performed 01/14/2010) Performed for Personal History of Venous Thrombosis and Embolism * GROSS + MICRO EXAM(Performed 06/22/2002) Results * PAP IG LB+HPV APTIMA (09/15/2017 4:27 PM NURSING PROGRAM COORDINATOR) Diagnosis [facility] ACCOUNT BILL Comment:NEGATIVE FOR INTRAEP ITHELIAL LESION AND MALIGNANCY. Specimen Adequacy [facility] ACCOUNT BILL Comment:Satisfactory for yonatan luation. No endocervical component is identified. Clinician Provided ICD10 [facility] ACCOUNT BILL Comment:Z01.419 Performed by [facility] ACCOUNT BILL Comment:Kenyatta Powell otechnologist (ASCP) Comment . [facility] ACCOUNT BILL [...] UTERINE CERVIX / Unknown 09/15/2017 4:27 PM NURSING PROGRAM COORDINATOR 09/16/2017 Narrative [facility] ACCOUNT BILL - 09/17/2017 5:11 PM NURSING PROGRAM COORDINATOR No. of containers..01 ThinPrep Vial Resulting Agency Comment [facility] [facility] ??Geovanny DONG [id number] Lola Valdovinos MD LAB - PATHOLOGY/CYT OLOGY ORDERABLES [facility] ACCOUNT BILL [address] [address] * LAB RESULTS ORDER (01/14/2012 5:47 PM CDT) Only the most recent of5 resultswithin the time period is included. Narrative Transcriptions Document, Scanned - 01/14/2012 5:47 PM CDT Scanned Document LAB - THERAPEUTIC DR JACOB MONITORING ORDERABLES * GROSS + MICRO EXAM (08/27/2010 12:54 PM NURSING PROGRAM COORDINATOR) Only the most recent of2 resultswithin the time period is included. [facility] Surgeon DR. Jojo GARCIA [facility] Grossed By RAF BRENNAN [facility] Gross Report [facility] Comment: COPY TO: ?? INDICATION [...] in a single cassette. LW/km Microscopic Examination [facility] Comment: MICROSCOPIC: Microsection reveals skin with a lesion showing papillomatosis, hyperkeratosis and pseudo horn cyst formation. ??Mild chronic inflammation is noted. ??There is no evidence of atypia or malignancy. ?? The lesion is excised. ?? GM/km Diagnosis [facility] Comment: DIAGNOSIS: 1. ?? Skin, left medial thigh, excision: -- ?? Seborrheic keratosis, completely excised -- ?? Chronic inflammation GM/km Released by AFSANEH PETE M.D. [facility] CPT Code 95331 [facility] NEVUS AND/OR MELANOMA / Unknown 08/27/2010 12:54 PM NURSING PROGRAM COORDINATOR 08/27/2010 12:55 PM NURSING PROGRAM COORDINATOR Raya Arguello MD LAB - PATHOLOGY/CYTO LOGY ORDERABLES Performing Organization Address [facility]/ZIP Co de Phone Number [facility] [address] [place] [address] * (ABNORMAL) HGB HCT PANEL (08/27/2010 7:43 AM NURSING PROGRAM COORDINATOR) Hemoglobin 8.3(L) 12.0 - 16.0 gm/dl [facility] Hematocrit 25.6(L) 36.0 - 48.0 % [facility] BLOOD SPECIMEN / Unknown 08/27/2010 7:43 AM NURSING PROGRAM COORDINATOR 08/27/2010 7:47 AM NURSING PROGRAM COORDINATOR Narrative [facility] - 08/27/2010 7:54 AM NURSING PROGRAM COORDINATOR Obtain 12-24 hours after delivery. Raya Arguello MD LAB - HEMATOLOGY ORD ERABLES Performing Organization Address [facility] Co de Phone Number [facility] [address] [place] [address] * (ABNORMAL) BLOOD GASES ARTERIAL (08/26/2010 11:34 AM NURSING PROGRAM COORDINATOR) Only the most recent of2 resultswithin the time period is included. pH Arterial 7.28(L) 7.38 - 7.42 pH Units [facility] pCO2 Arterial 57(H) 35 - 45 mm Hg [facility] pO2 Arterial 17(L) 80 - 105 mm Hg [facility] O2 Saturation Arterial 20(L) 95 - 98 % [facility] HCO3 Arterial 26 22 - 26 mmol/L [facility] TCO2 Arterial 28(H) 23 - 27 mmol/L [facility] Base Excess Arterial -2 -2 to 3 mmol/L [facility] Hemoglobin Arterial 16.0 12 - 17 g/dl [facility] Hematocrit Arterial 47 38 - 51 % [facility] Glucose 60(L) 70 - 105 mg/dl [facility] Sodium Arterial 136(L) 138 - 146 mmol/L [facility] Potassium Arterial 4.7 3.5 - 4.9 mmol/L [facility] Calcium Ionized 1.45(H) 1.12 - 1.32 mmol/L [facility] Site [facility] ARTERIAL BLOOD SPECIMEN / Unknown 08/26/2010 11:34 AM NURSING PROGRAM COORDINATOR 08/29/2010 12:07 PM NURSING PROGRAM COORDINATOR Raya Arguello MD LAB - BLOOD GASES OR DERABLES Performing Organization Address [facility] Co de Phone Number [facility] [address] [place] [address] * PTT (08/26/2010 10:34 AM NURSING PROGRAM COORDINATOR) Pathologist [facility] PTT 26.3 24.0 - 32.0 seconds [facility] BLOOD SPECIMEN / Unknown 08/26/2010 10:34 AM NURSING PROGRAM COORDINATOR 08/26/2010 10:34 AM NURSING PROGRAM COORDINATOR Raya Arguello MD LAB - COAGULATION OR DERABLES Performing Organization Address [facility] de Phone Number [facility] [id number] [place] [address] * TYPE + SCREEN PANEL (08/26/2010 9:52 AM NURSING PROGRAM COORDINATOR) Pathologist [facility] ABO Rh A Pos [facility] Antibody Screen Neg Negative [facility] BLOOD SPECIMEN / Unknown 08/26/2010 9:52 AM NURSING PROGRAM COORDINATOR 08/26/2010 10:03 AM NURSING PROGRAM COORDINATOR Raya Arguello MD LAB - BLOOD BANK ORD ERABLES Performing Organization Address [facility] Phone Number [facility] [id number] [place] [address] * (ABNORMAL) CBC W AUTO DIFFERENTIAL (08/26/2010 9:52 AM NURSING PROGRAM COORDINATOR) Only the most recent of4 resultswithin the time period is included. Pathologist [facility] WBC 7.3 4.5 - 11.0 1000/mm3 [facility] RBC 3.84(L) 4.2 - 5.4 10X6 [facility] Hemoglobin 10.8(L) 12.0 - 16.0 gm/dl [facility] Hematocrit 32.3(L) 36.0 - 48.0 % [facility] MCV 84.1 80.0 - 99.0 fl [facility] MCH 28.1 25.0 - 31.0 pg [facility] MCHC 33.4 32.0 - 36.0 gm/dl [facility] RDW 13.8 11.5 - 14.5 % [facility] Platelet Count 169 130.0 - 400.0 1000/mm3 [facility] Granulocytes % 68.5 40.0 - 70.0 % [facility] Lymphocytes % 21.3(L) 22.0 - 40.0 % [facility] Monocytes % 8.9 2.0 - 10.0 % [facility] Eosinophils % 1.2 0.0 - 6.0 % [facility] Basophils % 0.1 0.0 - 3.0 % [facility] Granulocytes Absolute 4.98 1.8 - 7.7 [facility] Lymphocytes Absolute 1.55 1.0 - 5.4 [facility] Monocytes Absolute 0.65 0.1 - 1.1 [facility] Eosinophils Absolute 0.09 0.0 - 0.7 [facility] Basophils Absolute 0.01 0.0 - 0.2 [facility] Comment Manual Diff Not Indicated [facility] BLOOD SPECIMEN / Unknown 08/26/2010 9:52 AM NURSING PROGRAM COORDINATOR 08/26/2010 10:04 AM NURSING PROGRAM COORDINATOR Raya Arguello MD LAB - HEMATOLOGY ORD ERABLES Performing Organization Address City/State/[facility] Co de Phone Number [facility] [address] [place] [address] * BIOPHYSICAL PROFILE W NST (08/20/2010 3:50 PM NURSING PROGRAM COORDINATOR) Only the most recent of5 resultswithin the time period is included. Anatomical Region Laterality Modality Other 08/20/2010 3:50 PM NURSING PROGRAM COORDINATOR Narrative 08/20/2010 5:24 PM NURSING PROGRAM COORDINATOR ?[facility] ?[facility] ? [facility] ?FAX: ?? Pat. Name: ?PARIS RAMIREZ. No: ?[id number] Study Date: ?? 08/20/2010 ??3:50pm , Age: ? 1975, 35 Pregnancies: ?? 2, Para 1001 LMP: ?Unknown GA by 1st: ?38.4 weeks GA Selected: ??38.4 weeks (From Known E) MANOJ: ?08/31/2010 Referring : Audie Deposition Reporter: ??Vivien Bello RDMS Hist/Ind: ? Hx of [...] <Electronic Signature> ??08/20/2010 05:23pm Modesto Choe MD [facility] ORDERABLES * URINALYSIS OBSTETRICS - POINT OF CARE (08/06/2010 5:45 PM NURSING PROGRAM COORDINATOR) Only the most recent of8 resultswithin the time period is included. Glucose UA negative Negative [facility] POCT TESTING Bilirubin UA negative Negative [facility] PO CT TESTING Ketone UA negative Negative [facility] PO[facility] Specific [place] UA POCT 1.015 1.000 - 1.030 [facility] [...] POINT OF CARE ORDERABLES [facility] POCT TESTING [address] [place] [address] * SONOGRAM - COMPLETE (06/04/2010) Only the most recent of5 resultswithin the time period is included. 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 This is associated with elevated prothrombin levels and an increased risk for venous thrombosis. This result has been reviewed and approved by Ned Acuña, Ph.D. BACKGROUND INFORMATION/ Prothrombin (F2) [id number] Mutation The factor II, prothrombin 16908W mutation is a common genetic risk factor for thrombosis and is associated with elevated prothrombin levels. Higher concentrations of prothrombin lead to increased rates of thrombin generation, resulting in excessive growth of fibrin clots. It is an autosomal dominant disorder, with heterozygotes being at a three-to eleven fold greater risk for thrombosis. Although homozygosity is rare, inheritance of two 29651G alleles would increase the risk for developing thrombosis. If a patient is heterozygous for both the prothrombin 27484L and the factor V Leiden mutation, the combined heterozygosity leads to an earlier onset of thrombosis and tends to be more severe than single-gene heterozygotes. Mutations in other genes or other mutations in the prothrombin gene that may cause elevated prothrombin and hereditary forms of venous thrombosis are not ruled out. Patient DNA was assayed for the [id number] mutation in the prothrombin gene by polymerase chain reaction (PCR), and fluorescence monitoring using hybridization probes. Sensitivity and specificity for detection of this mutation is 99.9 percent. The performance characteristics of this test were validated by [employer] ??The U.S. Food and Drug Administration (FDA) has not approved or cleared this test. However, FDA approval or clearance is currently not required for clinical use of this test. ??The results are not intended to be used as the sole means for clinical diagnosis or patient management decisions. ??[facility] is authorized under Clinical Laboratory Improvement Amendments (CLIA) and by all states to perform high-complexity testing. Counseling and informed consent are recommended for genetic testing. Consent forms are available online at [email or web address]. BLOOD SPECIMEN / Unknown 01/14/2010 4:33 PM CDT 01/14/2010 4:33 PM CDT Narrative Resulting Agency Comment Performed By [facility] ? [address] ? [place], [place] [address] Roberto Leavitt MD LAB - COAGULATION OR DERABLES [facility] [address] [place] [address] * FACTOR V LEIDEN MUTATION PANEL (01/14/2010 4:33 PM CDT) [facility] Factor V Leiden PCR/FRET Negative [facility] Comment Ref Lab [facility] Comment: Comments and Normal Ranges for Component ??Fac V Leiden by PCR/RFLP NEGATIVE/ The factor V Leiden mutation, R506Q, was not detected. This result has been reviewed and approved by Michele Kitchen, Ph.D. BACKGROUND INFORMATION/ Factor V Leiden (F5) R506Q Mutation CHARACTERISTICS/ Factor V Leiden mutation is the most common cause of inherited thrombophilia and accounts for over 90 percent of activated protein C resistance. The expression of Factor V Leiden thrombophilia is impacted by coexisting genetic thrombophilic disorders, acquired thrombophilic disorders (malignancy, hyperhomocysteinemia, high factor VIII levels), and circumstances including/ , oral contraceptive use, hormone replacement therapy, selective estrogen receptor modulators, travel, central venous catheters, surgery, transplantation and advanced age. INCIDENCE/ Approximately 5 percent of Caucasians, 2 percent of Hispanics, 1 percent of Americans and [place] Americans and 0.5 percent of Asians are heterozygous- homozygosity occurs in 1 in 5000 individuals. INHERITANCE/ Incomplete autosomal dominant. PENETRANCE/ Lifetime risk of thrombosis is 10 percent for heterozygotes and 80 percent of homozygotes. CAUSE/ A deleterious F5 gene mutations R506Q (1691G>A) Note/ Standardized nomenclature for the Factor V Leiden mutation is c.1601G>A (p.[id number]). CLINICAL SENSITIVITY AND SPECIFICITY FOR ACTIVATED PROTEIN C RESISTANCE/ 95 and 91 percent, respectively. METHODOLOGY/ Polymerase chain reaction and fluorescence monitoring. ANALYTICAL SENSITIVITY AND SPECIFICITY/ 99 percent. LIMITATIONS/ Rare diagnostic errors can occur due to primer site mutations. F5 gene mutations, other than R506Q, will not be detected. The performance characteristics of this test were validated by [facility] [employer]. The U.S. Food and Drug Administration (FDA) has not approved or cleared this test. However, FDA approval or clearance is currently not required for clinical use of this test. The results are not intended to be used as the sole means for clinical diagnosis or patient management decisions. [facility] is authorized under Clinical Laboratory Improvement Amendments (CLIA) and by all states to perform high-complexity testing. Counseling and informed consent are recommended for genetic testing. Consent forms are available online at [email or web address]. BLOOD SPECIMEN / Unknown 01/14/2010 4:33 PM CDT 01/14/2010 4:33 PM CDT Narrative Resulting Agency Comment Performed By [facility] ? [address] ? [place], [place] [address] Roberto Leavitt MD LAB - COAGULATION OR DERABLES Performing Organization Address City/State/[facility] Co de Phone Number [facility] [address] [place] [address] * CARDIOLIPIN ANTIBODY IGA (01/14/2010 4:33 PM CDT) Pathologist [facility] Cardiolipin Antibody IgA 0 APL [facility] Comment Ref Lab [facility] Comment: Comments and Normal Ranges for Component ??IgA Cardiolipin (APL) REFERENCE INTERVAL/ Cardiolipin Antibodies, IgA ??Less than 12 APL .......... Negative ??12-15 APL ................. Inconclusive ??Greater than 15 APL ....... Positive BLOOD SPECIMEN / Unknown 01/14/2010 4:33 PM CDT 01/14/2010 4:33 PM CDT Narrative Resulting Agency Comment Performed By [facility] ? [address] ? [place], [place] [address] Roberto Leavitt MD LAB - SEROLOGY ORDER OLIVER Performing Organization Address [facility] de Phone Number [facility] [address] [place] [address] * CARDIOLIPIN ANTIBODY IGM (01/14/2010 4:33 PM CDT) Cardiolipin Antibody IgM 3.94 <11 MPL [facility] BLOOD SPECIMEN / Unknown 01/14/2010 4:33 PM CDT 01/14/2010 4:33 PM CDT Narrative Resulting Agency Comment Performed By [facility] ? [address] [place] [address] ? [place] [address] Roberto Leavitt MD LAB - SEROLOGY ORDER OLIVER Performing Organization Address [facility] de Phone Number [facility] [address] [place] [address] * CARDIOLIPIN ANTIBODY IGG (01/14/2010 4:33 PM CDT) Cardiolipin Antibody IgG 2.80 <23 GPL [facility] BLOOD SPECIMEN / Unknown 01/14/2010 4:33 PM CDT 01/14/2010 4:33 PM CDT Narrative Resulting Agency Comment Performed By [facility] ? [address] [place] [address] ? [place] [address] Roberto Leavitt MD LAB - SEROLOGY ORDER OLIVER Performing Organization Address [facility] de Phone Number [facility] [address] [place] [address] * LUPUS ANTICOAGULANT PANEL (01/14/2010 4:33 PM CDT) PT (Lupus Anticoag) 12.8 12.0 - 15.5 seconds [facility] PTT Lupus Anticoagulant 42 32 - 48 seconds [facility] dRVVT 34 33 - 44 seconds [facility] PTT 1/1 Mix Not Applicable 32 - 48 seconds [facility] dRVVT 1:1 Mix Not Applicable 33 - 44 seconds [facility] Platelet Neutralization Not Applicable Negative seconds [facility] dRVVT Confirmatory Test Not Applicable Negative seconds [facility] Comment Ref Lab [facility] Comment: Comments and Normal Ranges for Component *DRVVT Confirmatory Test(sec Lupus anticoagulant not detected. The phospholipid-dependent screening tests (PTT, DRVVT) are not prolonged. Lupus anticoagulant antibodies are heterogeneous and antibody titers fluctuate over time. Laboratory tests used to identify lupus anticoagulants demonstrate variable sensitivity. If there is strong clinical suspicion for antiphospholipid antibody syndrome (APS), consider testing for cardiolipin and beta-2 glycoprotein 1 antibodies (IgG and IgM) if this testing has not already been performed. BLOOD SPECIMEN / Unknown 01/14/2010 4:33 PM CDT 01/14/2010 4:33 PM CDT Narrative Resulting Agency Comment Performed By [facility] ? [address] ? [place], [place] [address] Roberto Leavitt MD LAB - HEMATOLOGY ORD ERABLES [facility] [address] [place] [address] * PROTEIN C ACTIVITY (01/14/2010 4:33 PM CDT) [facility] Protein C Activity 88 77 - 173 % [facility] Comment Ref Lab [facility] Comment: Comments and Normal Ranges for Component ??Protein C, Function(%) INTERPRETATION/ Protein C, Functional Patients on oral anticoagulants will have decreased functional protein C/S values. ??Patients should be off oral anticoagulant therapy for two weeks for accurate measurement of functional protein C/S levels. Interfering Factors/ Artifactually decreased functional protein C values may be seen in patients with abnormally elevated levels of Factor VIII. Artifactually increased levels of functional protein C/S values may be seen in patients on heparin therapy. BLOOD SPECIMEN / Unknown 01/14/2010 4:33 PM CDT 01/14/2010 4:33 PM CDT Narrative Resulting Agency Comment Performed By [facility] ? [address] ? [place], [place] [address] Roberto Leavitt MD LAB - COAGULATION OR DERABLES Performing Organization Address [facility] de Phone Number [facility] [address] [place] [address] * ANTITHROMBIN III ANTIGEN (01/14/2010 4:33 PM CDT) [facility] AT III Ag 85 82 - 136 % [facility] BLOOD SPECIMEN / Unknown 01/14/2010 4:33 PM CDT 01/14/2010 4:33 PM CDT Narrative Resulting Agency Comment Performed By [facility] ? [address] ? [place], [place] [address] Roberto Leavitt MD LAB - COAGULATION OR DERABLES Performing Organization Address [facility] de Phone Number [facility] [address] [place] [address] * BETA-2 GLYCOPROTEIN 1 ANTIBODY IGG/IGM PANEL (01/14/2010 4:33 PM CDT) [facility] Beta-2 Glycoprotein Antibody IgG 1 0 - 20 [facility] Beta-2 Glycoprotein Antibody IgM 2 0 - 20 [facility] Comment Ref Lab [facility] Comment: Comments and Normal Ranges for Component ??B2 GP IgM([facility]) TEST INFORMATION/ Beta-2 Glycoprotein I Abs, IgG and IgM An IgG and/or IgM result of greater than 20 [facility] and/or [facility] on at least two occasions and at least 12 weeks apart is suggestive of antiphospholipid syndrome. Diagnosis should NOT be made solely on the basis of a single specimen. BLOOD SPECIMEN / Unknown 01/14/2010 4:33 PM CDT 01/14/2010 4:33 PM CDT Narrative Resulting Agency Comment Performed By [facility] ? [address] ? [place], [place] [address] Roberto Leavitt MD LAB - CHEMISTRY EDWIN KHOURY [facility] [address] [place] [address] Care Teams [employer] Founder Relationship Specialty Start Date End Date Stanton Villegas MD [address] [place] [address] PCP - General Family Medicine 09/15/17
--- OUTSIDE RECORDS SUMMARY | 2024-08-12 01:11 | XMS_ITS | Referral Summary ---
Author Organization [facility] Address [address] [place] [address] Care Team Providers Care Vice President Talent Management Name Role Phone Stanton Villegas MD Primary Care Provider Source Comments [facility],non-owned Affiliates and Associated Physician Practices is amultiple site organization consisting of ambulatory clinics and hospital sitesin [place], [place], [place] and [place]. This disclosure is being madepursuant to the Care Everywhere program and may not contain all information available regarding this patient. Last updated 18.[facility] Allergies No known active allergies Medications * [...] Administration Dates Next Due TDAP (7yrs+) 08/29/2010 Social History Tobacco Use Types Packs/Day Years [...] Comments Blood Pressure 132/80 09/15/2017 4:09 PM CIVIL SERVICE WORKER Pulse 80 08/30/2010 12:25 AM CIVIL SERVICE WORKER Temperature 36.3 ??C (97.4 ??F) 08/30/2010 8:30 AM CS T Respiratory Rate 18 08/30/2010 8:30 AM CIVIL SERVICE WORKER Oxygen Saturation 97% 08/26/2010 1:18 PM CIVIL SERVICE WORKER Inhaled Oxygen Concentration - - Weight 87.2 kg (192 lb 3.2 oz) 09/15/2017 4:09 P M CIVIL SERVICE WORKER Height 165.1 cm (5' 5 ) 09/15/2017 4:09 PM CIVIL SERVICE WORKER Body Mass Index 31.98 09/15/2017 4:09 PM CIVIL SERVICE WORKER Plan of Treatment Not on file Procedures Procedure Name Priority Date/Time Associated Diagnosis Comments PAP IG LB+HPV APTIMA Routine 09/15/2017 4:27 PM CIVIL SERVICE WORKER Well woman exam from Last 3 Months or Most Recently Relevant to Health Maintenance Results * PAP IG LB+HPV APTIMA (09/15/2017 4:27 PM CIVIL SERVICE WORKER) Diagnosis [facility] ACCOUNT BILL Comment:NEGATIVE FOR INTRAEP ITHELIAL LESION AND MALIGNANCY. Specimen Adequacy [facility] ACCOUNT BILL Comment:Satisfactory for yonatan luation. No endocervical component is identified. Clinician Provided ICD10 [facility] ACCOUNT BILL Comment:Z01.419 Performed by [facility] ACCOUNT BILL Comment:Yi Maxwell [facility] otechnologist ([facility]) Comment . [facility] ACCOUNT BILL Note [facility] [...] UTERINE CERVIX / Unknown 09/15/2017 4:27 PM CIVIL SERVICE WORKER 09/16/2017 Narrative [facility] ACCOUNT BILL - 09/17/2017 5:11 PM CIVIL SERVICE WORKER No. of containers..01 ThinPrep Vial Resulting Agency Comment [facility] [address] ??Geovanny DONG [phone] Lola Valdovinos MD LAB - PATHOLOGY/CYT OLOGY ORDERABLES [facility] ACCOUNT BILL [address] [place] [address] from Last 3 Months or Most Recently Relevant to Health Maintenance Advance Directives * Full Code (Latest Code Status on File) Date Activated Date Inactivated Comments 08/26/2010 9:52 AM 08/26/2010 2:37 PM Care Teams Vice President Talent Management Relationship Specialty Start Date End Date Stanton Villegas MD [address] [place] [address] PCP - General Family Medicine 09/15/17
--- OUTSIDE RECORDS SUMMARY | 2024-08-12 01:11 | XMS_ITS | Encounter Summary ---
Author Organization [facility] Address [address] [place] [address] Care Team Providers Care Carton Forming Machine Adjuster Name Role Phone Stanton Villegas MD Primary Care Provider [phone] Reason for Visit * Reason Comments Customer Care Specialist Exam WWE Encounter Details Date Type Department Care Team (Late st Contact Info) Description 09/15/2017 3:45 PM NET SOFTWARE ARCHITECT Office Visit [facility] Medical [facility] - SUPERVISOR ENDLESS TRACK VEHICLE [address] [place] [address] Lola Valdovinos MD [address] [place] [address] Well woman exam (Primary Dx); Oral contraception initiation Social History Tobacco Use Types Packs/Day Years [...] Comments Blood Pressure 132/80 09/15/2017 4:09 PM NET SOFTWARE ARCHITECT Pulse - - Temperature - - Respiratory Rate - - Oxygen Saturation - - Inhaled Oxygen Concentration - - Weight 87.2 kg (192 lb 3.2 oz) 09/15/2017 4:09 P M NET SOFTWARE ARCHITECT Height 165.1 cm (5' 5 ) 09/15/2017 4:09 PM NET SOFTWARE ARCHITECT Body Mass Index 31.98 09/15/2017 4:09 PM NET SOFTWARE ARCHITECT documented in this encounter Progress Notes * Lola Valdovinos MD - 09/15/2017 4:41 PM CST Well Woman Yearly Exam HISTORY: Paris Ramirez is a 42 y.o. female, Patient's last menstrual period was 09/04/2017 (exact date)., here for a Well Woman exam. A little overdue. Due for pap. Never had cristofer. Wanting to discuss BC options. Not using anything at the moment. Has hx of DVT so not candidate for estrogen containingoptions. Not wanting IUD or surgery. Menses: regular monthly cycle without intermenstrual spotting. Past Medical History: Diagnosis Date ??? ADD (attention deficit disorder) ??? DVT (deep venous thrombosis) after broken foot Past Surgical History: Procedure Laterality Date ??? Cervical LEEP 1999 ??? Section x2, ligation of hematoma, removal mole on thigh with one ??? Knee Arthroscopy ??? PROC COLPOSCOPY 1999 Social History Social History ??? Marital status: Spouse name: N/A ??? Number of children: N/A ??? Years of education: N/A Occupational History ??? Not on file. Social History Main Topics ??? Smoking status: Never Smoker ??? Smokeless tobacco: Never Used ??? Alcohol use No ??? Drug use: No ??? Sexual activity: Yes Partners: Male Other Topics Concern ??? Not on file Social History Narrative No Known Allergies OB History Para Term AB Living 2 2 2 2 SAB TAB Ectopic Multiple Live Births 2 Family History Problem Relation Age of Onset ??? Diabetes Mother ??? Stroke Father ??? Hypertension Father ??? Diabetes - Type 2 Father ??? CVA Maternal Grandmother ??? CVA Paternal Grandfather Review of Systems Constitutional: No weight or appetite changes. : No UTIs, frequency, urgency, pain, hematuria, vaginal dryness or vaginal discharge. Skin: No rash, changing moles, or bruises. Psychiatric: No depression or suicidal ideation. No mood changes. Endocrine: No thyroid or diabetes problems. EXAMINATION BP 132/80 Ht 5' 5 Wt 192 lb 3.2 oz BMI 31.98 kg/m2 Body mass index is 31.98 kg/(m^2). NEURO: The patient is oriented x3. NECK: Supple and symmetrical, without any masses. Thyroid is normal without any masses or enlargement. Trachea is midline. BREASTS: Nontender, without any masses or discharge. No tissue texture changes or dimpling. The patient is counseled on breast self-exam. SKIN: No rashes, lesions, or ulcers. ABDOMEN: Soft with good bowel sounds x4 quadrants. No masses or tenderness noted. There is no liveror spleen enlargement. No evidence of hernia. EXT: Nontender, nonedematous There is no clubbing or cyanosis. LYMPHATIC: No supraclavicular, axillary or inguinal adenopathy. EGBUS: Without any lesions or abnormalities. Normal [place]'s and [place]'s. Vagina: Moist, pink rugae without any lesions. Well supported with no evidence of relaxation. Cervix: Closed, without any lesions. Uterus: Small, mobile, nontender. Well supported. Adnexa: Nontender without palpable masses. Urinary: Urethral meatus normal without palpable masses. Urethra without masses or tenderness. No suprapubic tenderness associated with bladder. Rectovaginal: Deferred. ASSESSMENT ICD-10-CM 1. Well woman exam Z01.419 PAP IG LB+HPV APTIMA MAMMO SCREENING DIGITAL IMAGE BILAT 2. Oral contraception initiation Z30.011 Patient Active Problem List Diagnosis Date Noted ??? Prothrombin mutation 02/18/2010 ??? Personal history of venous thrombosis and embolism 01/09/2010 PLAN Paris aRmirez is a 42 y.o. female, Patient's last menstrual period was 09/04/2017 (exact date)., here for a Well Woman exam 1. Preventative medicine: PAP done Routine Annual Mammograms recommended. Follow up one year 2. OCP After discussing options wants to go back on her OCPs. Orders Placed This Encounter ??? MAMMO SCREENING DIGITAL IMAGE BILAT ??? PAP IG LB+HPV APTIMA ??? norethindrone (KEREN) 0.35 MG tablet See orders, medications, patient instructions. Lola Valdovinos MD SOFTWARE ARCHITECT documented in this encounter Plan of Treatment Not on file documented as of this encounter Procedures Procedure Name Priority Date/Time Associated Diagnosis Comments PAP IG LB+HPV APTIMA Routine 09/15/2017 4:27 PM NET SOFTWARE ARCHITECT Well woman exam documented in this encounter Results * PAP IG LB+HPV APTIMA (09/15/2017 4:27 PM NET SOFTWARE ARCHITECT) Diagnosis [facility] ACCOUNT BILL Comment:NEGATIVE FOR INTRAEP ITHELIAL LESION AND MALIGNANCY. Specimen Adequacy [facility] ACCOUNT BILL Comment:Satisfactory for yonatan luation. No endocervical component is identified. Clinician Provided ICD10 [facility] ACCOUNT BILL Comment:Z01.419 Performed by [facility] ACCOUNT BILL Comment:Kenyatta Powell otechnologist ([facility]) Comment . [facility] ACCOUNT BILL [...] UTERINE CERVIX / Unknown 09/15/2017 4:27 PM NET SOFTWARE ARCHITECT 09/16/2017 Narrative [facility] ACCOUNT BILL - 09/17/2017 5:11 PM NET SOFTWARE ARCHITECT No. of containers..01 ThinPrep Vial Resulting Agency Comment [facility] Ge[address] [place] ??Geovanny DONG [phone] Lola Valdovinos MD LAB - PATHOLOGY/CYT OLOGY ORDERABLES [facility] ACCOUNT BILL [address] [place] [address] documented in this encounter Visit Diagnoses Diagnosis Well woman exam- Primary Routine general medical examination at a health care facility Oral contraception initiation documented in this encounter Care Teams Carton Forming Machine Adjuster Relationship Specialty Start Date End Date Stanton Villegas MD [address] [place] [address] PCP - General Family Medicine 09/15/17 documented as of this encounter
--- OUTSIDE RECORDS SUMMARY | 2024-08-12 01:11 | XMS_ITS | Encounter Summary ---
Author Organization [facility] Address [address] [facility] [place] [address] Care Team Providers Care Controller Operations And Hr Manager Name Role Phone Unknown, Provider Primary Care Provider Unavaila ble Encounter Details Date Type Department Care Team (Latest Contact Info) Description 04/23/2010 2:26 PM CDT - 04/23/2010 11:59 PM CDT Hospital Encounter [facility] General Lab [address] [place] [address] Raya Arguello MD Obstetrics Discharge Disposition: [...] daily. 09/15/2017 documented as of this encounter Miscellaneous Notes * Miscellaneous Scans - Document, Scanned - 05/06/2010 2:13 PM CDT documented in this encounter Plan of Treatment Not on file documented as of this encounter Procedures Procedure Name Priority Date/Time Associated Diagnosis Comments URINALYSIS OBSTETRICS - POINT OF CARE Routine 06/04/2010 11:00 AM UTILITIES ESTIMATOR AND DRAFTER CBC W AUTO DIFFERENTIAL Routine 04/23/2010 4:17 PM CDT documented in this encounter Results * URINALYSIS OBSTETRICS - POINT OF CARE (06/04/2010 11:00 AM UTILITIES ESTIMATOR AND DRAFTER) Pathologist [facility] Glucose UA negative Negative [facility] POCT TESTING Bilirubin UA negative Negative [facility] PO CT TESTING Ketone UA negative Negative [facility] POCT TESTING Specific [place] UA POCT 1.010 1.000 - 1.030 [facility] PO[facility] TEST[facility] Blood UA negative Negative [facility] pH UA 7.0 5.0 - 8.0 pH units [facility] Protein UA negative Negative [facility] PO[facility] TEST[facility] Urobilinogen UA 0.2 0.2 - 1.0 EU/dL [facility] PO[facility] Nitrite UA negative Negative [facility] Leukocyte UA negative Negative [facility] PO CT TESTING QC Verified yes Yes [facility] POC T TESTING Urine specimen (specimen) URINE / Unknown 06/04/2010 11:00 AM UTILITIES ESTIMATOR AND DRAFTER Raya Arguello MD LAB - POINT OF CARE ORDERABLES [facility] [address] [place] [address] * (ABNORMAL) CBC W AUTO DIFFERENTIAL (04/23/2010 4:17 PM CDT) Pathologist [facility] WBC 6.3 4.5 - 11.0 1000/mm3 [facility] RBC 3.60(L) 4.2 - 5.4 10X6 [facility] Hemoglobin 10.4(L) 12.0 - 16.0 gm/dl [facility] Hematocrit 30.5(L) 36.0 - 48.0 % [facility] MCV 84.7 80.0 - 99.0 fl [facility] MCH 28.9 25.0 - 31.0 pg [facility] MCHC 34.1 32.0 - 36.0 gm/dl [facility] RDW 12.8 11.5 - 14.5 % [facility] Platelet Count 186 130.0 - 400.0 1000/mm3 [facility] Granulocytes % 63.6 40.0 - 70.0 % [facility] Lymphocytes % 23.4 22.0 - 40.0 % [facility] Monocytes % 11.2(H) 2.0 - 10.0 % [facility] Eosinophils % 1.6 0.0 - 6.0 % [facility] Basophils % 0.2 0.0 - 3.0 % [facility] Granulocytes Absolute 3.98 1.8 - 7.7 [facility] Lymphocytes Absolute 1.46 1.0 - 5.4 [facility] Monocytes Absolute 0.70 0.1 - 1.1 [facility] Eosinophils Absolute 0.10 0.0 - 0.7 [facility] Basophils Absolute 0.01 0.0 - 0.2 [facility] Comment Manual Diff Not Indicated [facility] BLOOD SPECIMEN / Unknown 04/23/2010 4:17 PM CDT 04/23/2010 4:17 PM CDT Raya Arguello MD LAB - HEMATOLOGY ORD ERABLES [facility] [address] [place] [address] documented in this encounter Visit Diagnoses Not on filedocumented in this encounter Care Teams Controller Operations And Hr Manager Relationship Specialty Start Date End Date Unknown, Provider PCP - General 03/26/10 12/13/13 documented as of this encounter
--- OUTSIDE RECORDS SUMMARY | 2024-08-12 01:11 | XMS_ITS | Encounter Summary ---
Author Organization [facility] Address [address] [place] [address] Care Team Providers Care Student Worker Name Role Phone Roberto Leavitt MD Primary Care Provider [phone] Reason for Referral * Evaluate & Treat Specialty Diagnoses / Procedures Referred By Rene t Referred To Contact Modesto Choe MD [address] [address] [facility] CLINICAL NUTRITION @ [facility] [id number] [place] [address] Referral ID Status Reason Start Date Expiration Date Visits Re quested Visits Authorized Reason for Visit * Reason Comments Consultation Encounter Details Date Type Department Care Team (Late st Contact Info) Description 01/29/2010 1:45 PM CDT [facility] Visit Maternal & Care at [facility] [address] [place] [address] , [address] [place] [address] Arrived Social History Tobacco Use Types Packs/Day Years [...] Sign Reading Time Taken Comments Blood Pressure 118/66 01/29/2010 2:04 PM CDT Pulse 77 01/29/2010 2:04 PM CDT Temperature - - Respiratory Rate 16 01/29/2010 2:04 PM CDT Oxygen Saturation - - Inhaled Oxygen Concentration - - Weight 78 kg (172 lb) 01/29/2010 2:04 PM CDT Height 165.1 cm (5' 5 ) 01/29/2010 2:04 PM CDT Body Mass Index 28.62 01/29/2010 2:04 PM CDT documented in this encounter Progress Notes * Dolly Broderick RN - 01/29/2010 2:05 PM CDT Pt. here for consultation w/ Dr. Choe [facility] [employer] physician at this time. See letter for further information. LATOR TECHNICIAN documented in this encounter Miscellaneous Notes * Miscellaneous Scans - Document, Scanned - 02/16/2013 2:44 PM CDT * Miscellaneous Scans - Document, Scanned - 04/08/2011 3:14 PM CDT * Miscellaneous Scans - Document, Scanned - 04/06/2011 3:06 PM CDT * Miscellaneous Scans - Document, Scanned - 04/06/2011 3:06 PM CDT documented in this encounter Plan of Treatment Scheduled Referrals Name Type Priority Associated Diagnoses Orde r Schedule MEDICAL NUTRITION THERAPY REFERRAL Outpatient Referral Routine Ordered: 01/29/2010 documented as of this encounter Procedures Procedure Name Priority Date/Time Associated Diagnosis Comments URINALYSIS OBSTETRICS - POINT OF CARE Routine 01/29/2010 7:44 PM CDT documented in this encounter Results * URINALYSIS OBSTETRICS - POINT OF CARE (01/29/2010 7:44 PM CDT) Glucose UA negativ Negative [facility] PO[facility] Bilirubin UA negative Negative [facility] PO CT TESTING Ketone UA negative Negative [facility] POCT TESTING Specific [place] UA POCT 1.010 1.000 - 1.030 [facility] [...] TESTING Urine specimen (specimen) URINE / Unknown Modesto Choe MD LAB - POINT OF CARE ORDERABLES [facility] [address] [place] [address] documented in this encounter Visit Diagnoses Not on filedocumented in this encounter Care Teams Student Worker Relationship Specialty Start Date End Date Roberto Leavitt MD [address] [address] PCP - General 01/15/10 02/24/10 documented as of this encounter
--- OUTSIDE RECORDS SUMMARY | 2024-08-12 01:11 | XMS_ITS | Encounter Summary ---
Author Organization [facility] Address [address] [place] [address] Care Team Providers Care Senior Mobile Solutions Architect Name Role Phone Unknown, Provider Primary Care Provider Unavaila ble Encounter Details Date Type Department Care Team (Latest Contact Info) Description 08/13/2010 3:30 PM HIRE CAR DRIVER M Procedure Visit Maternal & Care at [facility] [address] [place] [address] , [address] [place] [address] Raya Arguello MD Personal history of venous thrombosis and embolism; Prothrombin mutation (HCC); Primary hypercoagulable state (HCC) Discharge Disposition: Home or Self Care Social [...] Sign Reading Time Taken Comments Blood Pressure 123/63 08/13/2010 2:30 PM HIRE CAR DRIVER Pulse 78 08/13/2010 2:30 PM HIRE CAR DRIVER Temperature - - Respiratory Rate - - Oxygen Saturation - - Inhaled Oxygen Concentration - - Weight - - Height - - Body Mass Index - - documented in this encounter Procedure Notes * Vivien Bello - 08/13/2010 3:18 PM CST Patient here for sonogram today CAR DRIVER documented in this encounter Plan of Treatment Not on file documented as of this encounter Procedures Procedure Name Priority Date/Time Associated Diagnosis Comments BIOPHYSICAL PROFILE W NST Routine 08/13/2010 3:21 PM HIRE CAR DRIVER Personal history of venous thrombosis and embolism documented in this encounter Results * BIOPHYSICAL PROFILE W NST (08/13/2010 3:21 PM HIRE CAR DRIVER) Anatomical Region Laterality Modality Other 08/13/2010 3:21 PM HIRE CAR DRIVER Narrative 08/13/2010 5:24 PM HIRE CAR DRIVER ?[facility] ?[facility] ? [facility] ?FAX: ?? Pat. Name: ?DORIAN OLIVIA Pat. No: ?[id number] Study Date: ?? 08/13/2010 ??3:21pm , Age: ? 1975, 35 Pregnancies: ?? 2, Para 1001 LMP: ?Unknown GA by 1st: ?37.4 weeks GA Selected: ??37.4 weeks (From Known E) MANOJ: ?08/31/2010 Referring : Audie Primary Therapist: ??Vivien Bello RDMS Hist/Ind: ? Hx of DVT/ Prothrombin mutation Amniotic Fluid Index: 11.9 (07.4-24.2) Q1: 4.3 ?? Q2: 3.4 ?? Q3: 4.2 ?? Biophysical Profile: 05/05 Breathin ?? Tone: 2 ?? NST: 2 Movement: ??2 ?? AFV: ??2 CLINICAL SUMMARY Zlueta:N=Appears Normal, A=Abnormal, U=Unclear Tape Number : 12/03 Study No. 10 presentation : Vertex No: ?? 1 Cardiac motion : Seen Four Chamber Heart: N Stomach/ Abdominal Wall : N Cord Insertion: N Bladder: N Kidneys: N Limbs:Upper : N Lower: ?? N Face: N Spine : ?? N Cranial Anatomy: N Diaphragm: N Placenta Location: Anterior Placental Grade : 2 Amniotic Fluid Volume: Normal Gender : Female Comments: The MANOJ selected is based on a prior 13w 3 d ultrasound examination. The amniotic fluid volume is within normal limits. The umbilical artery S/D is 2.31, which is ??within normal limits for gestational age. The BPP score is reassuring. Thank you for allowing us the opportunity to care for your patient. Yonny Day MD <Electronic Signature> ??08/13/2010 05:24pm Modesto Choe MD [facility] ORDERABLES documented in this encounter Visit Diagnoses Diagnosis Personal history of venous thrombosis and embolism Prothrombin mutation (HCC) Primary hypercoagulable state Primary hypercoagulable state (HCC) Primary hypercoagulable state documented in this encounter Care Teams Senior Mobile Solutions Architect Relationship Specialty Start Date End Date Unknown, Provider PCP - General 03/26/10 12/13/13 documented as of this encounter
--- OUTSIDE RECORDS SUMMARY | 2024-08-12 01:11 | XMS_ITS | Encounter Summary ---
Author Organization [facility] Address [address] [facility] [place] [address] Care Team Providers Care Exceptional Children Teacher Name Role Phone Unknown, Provider Primary Care Provider Unavaila ble Reason for Visit * Reason Comments Consultation Ultrasound Encounter Details Date Type Department Care Team (Latest Contact Info) Description 07/02/2010 3:15 PM TRAVEL PROFESSIONAL [facility] Visit [facility] & Care at [facility] [address] [facility] , [address] [place] [address] Raya Arguello MD Personal history [...] Sign Reading Time Taken Comments Blood Pressure 115/58 07/02/2010 2:32 PM TRAVEL PROFESSIONAL Pulse 78 07/02/2010 2:32 PM TRAVEL PROFESSIONAL Temperature - - Respiratory Rate 16 07/02/2010 2:32 PM TRAVEL PROFESSIONAL Oxygen Saturation - - Inhaled Oxygen Concentration - - Weight 96.6 kg (213 lb) 07/02/2010 2:32 PM TRAVEL PROFESSIONAL Height - - Body Mass Index 35.45 03/26/2010 8:53 AM CDT documented in this encounter Progress Notes * Linda Estrada, COLLECTION ANALYST-WOUND/OSTOMY CLINICAL NURSE SPECIALIST - 07/02/2010 2:32 PM CST Pt. here for consultation w/ [facility] physician at this time. See letter for further information. Pt. here for US. See report. Copy of report faxed to office of referring physician. Pt sts she has some irregular contractions in the morning, but nothing regular. Denies LOF, denies any headaches or visual disturbances. documented in this encounter Plan of Treatment Not on file documented as of this encounter Procedures Procedure Name Priority Date/Time Associated Diagnosis Comments URINALYSIS OBSTETRICS - POINT OF CARE Routine 07/02/2010 12:00 PM TRAVEL PROFESSIONAL Personal history of venous thrombosis and embolism SONOGRAM - COMPLETE Routine 06/02/2010 Personal history of venous thrombosis and embolism documented in this encounter Results * URINALYSIS OBSTETRICS - POINT OF CARE (07/02/2010 12:00 PM TRAVEL PROFESSIONAL) Glucose UA negative Negative [facility] Bilirubin UA negative Negative [facility] PO CT TESTING Ketone UA negative Negative [facility] Specific [place] UA POCT 1.015 1.000 - 1.030 [facility] Blood UA negative Negative [facility] pH UA 5.0 5.0 - 8.0 pH units [facility] Protein UA negative Negative [facility] Urobilinogen UA 0.2 0.2 - 1.0 EU/dL [facility] Nitrite UA negative Negative [facility] Leukocyte UA negative Negative [facility] PO CT TESTING QC Verified yes Yes [facility] POC T TESTING Urine specimen (specimen) URINE / Unknown 07/02/2010 12:00 PM TRAVEL PROFESSIONAL Yonny Day MD LAB - POINT OF CARE ORDERABLES [facility] [address] [place] [address] * SONOGRAM - COMPLETE (06/02/2010) Anatomical Region Laterality Modality Other Modesto Choe MD [facility] ORDERABLES documented in this encounter Visit Diagnoses Diagnosis Personal history of venous thrombosis and embolism- Primary documented in this encounter Care Teams Exceptional Children Teacher Relationship Specialty Start Date End Date Unknown, Provider PCP - General 03/26/10 12/13/13 documented as of this encounter
--- OUTSIDE RECORDS SUMMARY | 2024-08-12 01:12 | XMS_ITS | Encounter Summary ---
Author Organization [facility] Address [address] [place] [address] Care Team Providers Care Biblical Studies Professor Name Role Phone Roberto Leavitt MD Primary Care Provider [phone] Encounter Details Date Type Department Care Team (Latest Contact Info) Description 01/14/2010 4:03 PM CDT - 01/14/2010 11:59 PM CDT Hospital Encounter [facility] General Lab [address] [place] [id number] Roberto Leavitt MD [address] [facility] [address] [place] [address] Default, Only Laboratory Discharge Disposition: Home or Self Care Social [...] * Miscellaneous Scans - Document, Scanned - 01/14/2010 12:00 AM CDT * Miscellaneous Scans - Document, Scanned - 01/14/2010 12:00 AM CDT documented in this encounter Plan of Treatment Not on file documented as of this encounter Procedures Procedure Name Priority Date/Time Associated Diagnosis Comments PROTHROMBIN [id number] PANEL Routine 01/14/2010 4:33 PM CDT Personal History of Venous Thrombosis and Embolism FACTOR V LEIDEN MUTATION PANEL Routine 01/14/2010 4:33 PM CDT Personal History of Venous Thrombosis and Embolism CARDIOLIPIN ANTIBODY IGA Routine 01/14/2010 4:33 PM CDT Personal History of Venous Thrombosis and Embolism CARDIOLIPIN ANTIBODY IGM Routine 01/14/2010 4:33 PM CDT Personal History of Venous Thrombosis and Embolism CARDIOLIPIN ANTIBODY IGG Routine 01/14/2010 4:33 PM CDT Personal History of Venous Thrombosis and Embolism LUPUS ANTICOAGULANT PANEL W RFLX Routine 01/14/2010 4:33 PM CDT Personal History of Venous Thrombosis and Embolism PROTEIN C ACTIVITY Routine 01/14/2010 4: 33 PM CDT Personal History of Venous Thrombosis and Embolism ANTITHROMBIN III ANTIGEN Routine 01/14/2010 4:33 PM CDT Personal History of Venous Thrombosis and Embolism BETA-2 GLYCOPROTEIN 1 ANTIBODY IGG/IGM PANEL Routine 01/14/2010 4:33 PM CDT Personal History of Venous Thrombosis and Embolism CBC W AUTO DIFFERENTIAL Routine 01/14/2010 4:33 PM CDT Personal History of Venous Thrombosis and Embolism documented in this encounter Results * CARDIOLIPIN ANTIBODY IGG (01/14/2010 4:33 PM CDT) Cardiolipin Antibody IgG 2.80 <23 GPL [facility] BLOOD SPECIMEN / Unknown 01/14/2010 4:33 PM CDT 01/14/2010 4:33 PM CDT Narrative Resulting Agency Comment Performed By [facility] ? [address] ? [place] [address] Roberto Leavitt MD LAB - SEROLOGY ORDER OLIVER Performing Organization Address City/[facility] Co de Phone Number [facility] [address] [place] [address] * CARDIOLIPIN ANTIBODY IGM (01/14/2010 4:33 PM CDT) Cardiolipin Antibody IgM 3.94 <11 MPL [facility] BLOOD SPECIMEN / Unknown 01/14/2010 4:33 PM CDT 01/14/2010 4:33 PM CDT Narrative Resulting Agency Comment Performed By [facility] ? [address] [place] [address] ? [place] [address] Roberto Leavitt MD LAB - SEROLOGY ORDER OLIVER Performing Organization Address City/[facility] Co de Phone Number [facility] [address] [place] [address] * LUPUS ANTICOAGULANT PANEL (01/14/2010 4:33 PM CDT) PT (Lupus Anticoag) 12.8 12.0 - 15.5 seconds [facility] PTT Lupus Anticoagulant 42 32 - 48 seconds [facility] dRVVT 34 33 - 44 seconds [facility] PTT 1/1 Mix Not Applicable 32 - 48 seconds [facility] dRVVT 1:1 Mix Not Applicable 33 - 44 seconds [facility] Platelet Neutralization Not Applicable Negative seconds [facility] dRVVT Confirmatory Test Not Applicable Negative seconds [facility] Comment Ref Lab [facility] Comment: Comments and Normal Ranges [...] By [facility] ? [address] ? [place], [place] [address] Roberto Leavitt MD LAB - HEMATOLOGY ORD ERABLES Performing Organization Address [facility] Co de Phone Number [facility] [address] [place] [address] * PROTEIN C ACTIVITY (01/14/2010 4:33 PM CDT) [facility] Protein C Activity 88 77 - 173 % [facility] Comment Ref Lab [facility] Comment: Comments and Normal Ranges [...] By [facility] ? [address] ? [place], [place] [address] Roberto Leavitt MD LAB - COAGULATION OR DERABLES Performing Organization Address [facility] Co de Phone Number [facility] [address] [place] [address] * ANTITHROMBIN III ANTIGEN (01/14/2010 4:33 PM CDT) [facility] AT III Ag 85 82 - 136 % [facility] BLOOD SPECIMEN / Unknown 01/14/2010 4:33 PM CDT 01/14/2010 4:33 PM CDT Narrative Resulting Agency Comment Performed By [facility] ? [address] ? [place], [place] [address] Roberto Leavitt MD LAB - COAGULATION OR DERABLES 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 Comment Ref Lab [facility] Comment: Comments and Normal Ranges for Component ??Prothrombin [address] Mutation HETEROZYGOUS/ The sample is heterozygous for the factor II, prothrombin 20687D mutation and the normal allele. This is associated with elevated prothrombin levels and an increased risk for venous thrombosis. This result has been reviewed and approved by Ned Acuña, Ph.D. BACKGROUND INFORMATION/ Prothrombin (F2) L79239O Mutation The factor II, prothrombin 08617Q mutation is a common genetic risk factor for thrombosis and is associated with elevated prothrombin levels. Higher concentrations of prothrombin lead to increased rates of thrombin generation, resulting in excessive growth of fibrin clots. It is an autosomal dominant disorder, with heterozygotes being at a three-to eleven fold greater risk for thrombosis. Although homozygosity is rare, inheritance of two 18493E alleles would increase the risk for developing thrombosis. If a patient is heterozygous for both the prothrombin 02885E and the factor V Leiden mutation, the combined heterozygosity leads to an earlier onset of thrombosis and tends to be more severe than single-gene heterozygotes. Mutations in other genes or other mutations in the prothrombin gene that may cause elevated prothrombin and hereditary forms of venous thrombosis are not ruled out. Patient DNA was assayed for the D27601X mutation in the prothrombin gene by polymerase chain reaction (PCR), and fluorescence monitoring using hybridization probes. Sensitivity and specificity for detection of this mutation is 99.9 percent. The performance characteristics of this test were validated by [employer] ??The U.S. Food and Drug Administration (FDA) has not approved or cleared this test. However, FDA approval or clearance is currently not required for clinical use of this test. ??The results are not intended to be used as the sole means for clinical diagnosis or patient management decisions. ??[employer] is authorized under Clinical Laboratory Improvement Amendments (CLIA) and by all states to perform high-complexity testing. Counseling and informed consent are recommended for genetic testing. Consent forms are available online at [email or web address]. BLOOD SPECIMEN / Unknown 01/14/2010 4:33 PM CDT 01/14/2010 4:33 PM CDT Narrative Resulting Agency Comment Performed By [facility] ? [address] ? [place], [place] [address] Roberto Leavitt MD LAB - COAGULATION OR DERABLES [facility] [address] [place] [address] * FACTOR V LEIDEN MUTATION PANEL (01/14/2010 4:33 PM CDT) [facility] Factor V Leiden PCR/FRET Negative [facility] Comment Ref Lab [facility] Comment: Comments and Normal Ranges [...] of Hispanics, 1 percent of Americans and [place] Americans and 0.5 percent of Asians are heterozygous- homozygosity occurs in 1 in 5000 individuals. INHERITANCE/ Incomplete autosomal dominant. PENETRANCE/ Lifetime risk of thrombosis is 10 percent for heterozygotes and 80 percent of homozygotes. CAUSE/ A deleterious F5 gene mutations R506Q (1691G>A) Note/ Standardized nomenclature for the Factor V Leiden mutation is c.1601G>A ([id number]). CLINICAL SENSITIVITY AND SPECIFICITY FOR ACTIVATED PROTEIN C RESISTANCE/ 95 and 91 percent, respectively. METHODOLOGY/ Polymerase chain reaction and fluorescence monitoring. ANALYTICAL SENSITIVITY AND SPECIFICITY/ 99 percent. LIMITATIONS/ Rare diagnostic errors can occur due to primer site mutations. F5 gene mutations, other than R506Q, will not be detected. The performance characteristics of this test were validated by [facility] [employer]. The U.S. Food and Drug Administration (FDA) has not approved or cleared this test. However, FDA approval or clearance is currently not required for clinical use of this test. The results are not intended to be used as the sole means for clinical diagnosis or patient management decisions. [facility] is authorized under Clinical Laboratory Improvement Amendments (CLIA) and by all states to perform high-complexity testing. Counseling and informed consent are recommended for genetic testing. Consent forms are available online at [email or web address]. BLOOD SPECIMEN / Unknown 01/14/2010 4:33 PM CDT 01/14/2010 4:33 PM CDT Narrative Resulting Agency Comment Performed By [facility] ? [address] ? [place], [place] [address] Roberto Leavitt MD LAB - COAGULATION OR DERABLES Performing Organization Address City/State/[facility] Co de Phone Number [facility] [address] [place] [address] * CARDIOLIPIN ANTIBODY IGA (01/14/2010 4:33 PM CDT) Cardiolipin Antibody IgA 0 APL [facility] Comment Ref Lab [facility] Comment: Comments and Normal Ranges for Component ??IgA Cardiolipin (APL) REFERENCE INTERVAL/ Cardiolipin Antibodies, IgA ??Less than 12 APL .......... Negative ??12-15 APL ................. Inconclusive ??Greater than 15 APL ....... Positive BLOOD SPECIMEN / Unknown 01/14/2010 4:33 PM CDT 01/14/2010 4:33 PM CDT Narrative Resulting Agency Comment Performed By [facility] ? [address] ? [place], [place] [address] Roberto Leavitt MD LAB - SEROLOGY ORDER OLIVER Performing Organization Address [facility] de Phone Number [facility] [address] [place] [address] * BETA-2 GLYCOPROTEIN 1 ANTIBODY IGG/IGM PANEL (01/14/2010 4:33 PM CDT) Beta-2 Glycoprotein Antibody IgG 1 0 - 20 [facility] Beta-2 Glycoprotein Antibody IgM 2 0 - 20 [facility] Comment Ref Lab [facility] Comment: Comments and Normal Ranges [...] By [facility] ? [address] ? [place], [place] [address] Roberto Leavitt MD LAB - CHEMISTRY ORDE [place] Performing Organization Address [facility] de Phone Number [facility] [address] [place] [address] * (ABNORMAL) CBC W AUTO DIFFERENTIAL (01/14/2010 4:33 PM CDT) Pathologist [facility] WBC 5.1 4.5 - 11.0 1000/mm3 [facility] RBC 4.09(L) 4.2 - 5.4 10X6 [facility] Hemoglobin 12.2 12.0 - 16.0 gm/dl [facility] Hematocrit 35.6(L) 36.0 - 48.0 % [facility] MCV 87.0 80.0 - 99.0 fl [facility] MCH 29.8 25.0 - 31.0 pg [facility] MCHC 34.3 32.0 - 36.0 gm/dl [facility] RDW 12.2 11.5 - 14.5 % [facility] Platelet Count 234 130.0 - 400.0 1000/mm3 [facility] Granulocytes % 67.2 40.0 - 70.0 % [facility] Lymphocytes % 20.3(L) 22.0 - 40.0 % [facility] Monocytes % 10.5(H) 2.0 - 10.0 % [facility] Eosinophils % 1.6 0.0 - 6.0 % [facility] Basophils % 0.4 0.0 - 3.0 % [facility] Granulocytes Absolute 3.44 1.8 - 7.7 [facility] Lymphocytes Absolute 1.04 1.0 - 5.4 [facility] Monocytes Absolute 0.54 0.1 - 1.1 [facility] Eosinophils Absolute 0.08 0.0 - 0.7 [facility] Basophils Absolute 0.02 0.0 - 0.2 [facility] Comment Manual Diff Not Indicated [facility] BLOOD SPECIMEN / Unknown 01/14/2010 4:33 PM CDT 01/14/2010 4:33 PM CDT Roberto Leavitt MD LAB - HEMATOLOGY ORD ERABLES [facility] Organization Address City/State/ZIP Co de Phone Number [facility] [address] [place] [address] documented in this encounter Visit Diagnoses Diagnosis Personal history of venous thrombosis and embolism documented in this encounter Care Teams Biblical Studies Professor Relationship Specialty Start Date End Date Roberto Leavitt MD [address] [place] [address] PCP - General 01/14/10 01/14/10 documented as of this encounter
--- OUTSIDE RECORDS SUMMARY | 2024-08-12 01:12 | XMS_ITS | Encounter Summary ---
Author Organization [facility] Address [address] [place] [address] Care Team Providers Care Manager Product Name Role Phone Modesto Choe MD Primary Care Provider [phone] Roberto Leavitt MD Primary Care Provider [phone] Roberto Leavitt MD Primary Care Provider [phone] Unknown, Provider Primary Care Provider Unavaila ble Encounter Details Date Type Department Care Team (Late st Contact Info) Description 06/22/2002 Orders Only [facility] - Laboratory [address] [place] [address] Provider, MD Karina Social History Tobacco Use Types Packs/Day Years Used Date Smoking Tobacco: Never Assessed Sex and Gender Information Value Date Recorded Sex Assigned at Not on file Gender Identity Not on file Sexual Orientation Not on file documented as of this encounter Plan of Treatment Not on file documented as of this encounter Procedures Procedure Name Priority Date/Time Associated Diagnosis Comments GROSS + MICRO EXAM MARY CARMEN 06/22/2002 12 :00 AM GLOBAL SOURCING MANAGER documented in this encounter Results * GROSS + MICRO EXAM (06/22/2002 12:00 AM GLOBAL SOURCING MANAGER) Result CASE NUMBER [id number] Comment: ORDERING PHYSICIAN ??JEANE GARCIA SPECIMEN TYPE ?Placenta Surgeon ?JEANE GARCIA M.D. Gross Exam ? Dr. Tiki Parra M.D. Gross Report ? COPY TO INDICATION FOR PROCEDURE ??EXTRA LOBE ON PLACENTA OPERATION ?? SECTION GROSS ?? THE SPECIMEN IS RECEIVED IN A FORMALIN-FILLED CONTAINER LABELED WITH THE PATIENT'S NAME AND IDENTIFIED PLACENTA AND CORD . ??THE SPECIMEN CONSISTS OF A DISC SHAPED PLACENTA MEASURING APPROXIMATELY 23 X 20 X 3 CM. ??THERE IS AN ACCESSORY LOBE MEASURING APPROXIMATELY 9 X 8 X 1.5 CM. WHICH IS CONNECTED TO THE MAIN PLACENTA BY A NARROW STRIP OF TISSUE. ??THE UMBILICAL CORD IS ECCENTRICALLY INSERTED 3 CM. FROM ONE MARGIN AND MEASURES APPROXIMATELY 17 CM. IN LENGTH. ?? CUT SURFACE OF THE CORD SHOWS THREE BLOOD VESSELS. ??THE MEMBRANES ARE SMOOTH, THIN AND SEMITRANSLUCENT. ??THE MATERNAL SURFACE IS COMPLETE AND SERIAL SECTIONS SHOW UNREMARKABLE SPONGY PARENCHYMA. ?? THE SURFACE IS GROSSLY UNREMARKABLE. ??THE PLACENTA WEIGHS 660 GRAMS. ??DRY CLEANER HAND SECTIONS ARE SUBMITTED FOLLOWS A. ?? CORD AND MEMBRANES B. ?? MATERNAL SURFACE C. ?? SURFACE SL/SS ? MICROSCOPIC EXAM ? MICROSCOPIC ?? SECTION OF THE PLACENTA SHOWS NUMEROUS WELL VASCULARIZED CHORIONIC VILLI. ??INTERVILLOUS FIBRIN DEPOSITION IS SEEN. ??SYNCYTIAL KNOTS ARE PRESENT. ??FOCAL DYSTROPHIC CALCIFICATION IS NOTED. ??THERE IS NO INFLAMMATION WITHIN THE MEMBRANE OR CORD WHICH SHOWS THE TYPICAL THREE VESSELS. ? DIAGNOSIS ? DIAGNOSIS [1] PLACENTA ?? -- ?? THIRD TRIMESTER PLACENTA JW/SP ?? Released By ?BRENDA BRADEN CPT Code ? 02145 MISCELLANEOUS SAMPLE S / Unknown 06/22/2002 06/22/2002 12:07 PM GLOBAL SOURCING MANAGER Historical Provider LAB - PATHOLOGY/C YTOLOGY ORDERABLES documented in this encounter Visit Diagnoses Not on filedocumented in this encounter Care Teams Manager Product Relationship Specialty Start Date End Date Modesto Choe MD [address] [place] [address] PCP - General 02/25/10 03/25/10 Roberto Leavitt MD [address] [place] [address] PCP - General 01/15/10 02/24/10 Roberto Leavitt MD [address] [place], [place] [id number] PCP - General 01/14/10 01/14/10 Unknown, Provider PCP - General 03/26/10 12/13/13 documented as of this encounter
--- OUTSIDE RECORDS SUMMARY | 2024-08-12 01:12 | XMS_ITS | Encounter Summary ---
Author Organization [facility] Address [address] [place] [address] Care Team Providers Care Medical Device Sales Name Role Phone Roberto Leavitt MD Primary Care Provider Reason for Visit * Reason Comments Consultation Encounter Details Date Type Department Care Team (Latest Contact Info) Description 01/14/2010 2:30 PM CDT [facility] at [facility] [address] , [address] [place] [address] Raya Arguello MD Personal History of Venous Thrombosis and Embolism Discharge Disposition: Home or Self Care Social [...] Sign Reading Time Taken Comments Blood Pressure 118/72 01/14/2010 2:53 PM CDT Pulse 69 01/14/2010 2:53 PM CDT Temperature - - Respiratory Rate 18 01/14/2010 2:53 PM CDT Oxygen Saturation - - Inhaled Oxygen Concentration - - Weight 75.8 kg (167 lb) 01/14/2010 2:53 PM CDT Height 165.1 cm (5' 5 ) 01/14/2010 2:53 PM CDT Body Mass Index 27.79 01/14/2010 2:53 PM CDT documented in this encounter Progress Notes * Roberto Leavitt MD - 01/14/2010 3:48 PM CDT MFM Initial Consult Paris Ramirez is a 34 y.o. female, , LMP in October (exact date not known). Here for MFM consult given her history of a DVT related to a fractured right foot in 2002. A week after the accident(soccer) she experienced swelling, redness and pain. She had been very immobile for a couple days after the injury but had started to be more active in her walking boot. She was diagnosed with a DVT and initially anticoagulated with lovenox and then converted to coumadin for six months. She broke the same foot 2 yrs later but did not have any problems. Since her initial diagnosis she has not beenon they other treatment up until now and Dr. Bronson has her on lovenox, 40 mg sq BID. Her cousin has a clotting disorder and her father and paternal grandfather have had strokes. Her uncle had an PR. Her EDC is 2-5-11, based on a 5+ weeks US. Current EGA is 7 2/7 weeks. Prior scans done in Dr. Bronson???s office. POBHx - 05/28, term CS, male, 9-13. IOL for 20+ hrs. PGYNHx - LEEP MedHx - DVT as above, h/o pyelo in 1997 SurgHx - LEEP, left knee surgery, CS, fx foot x 2 All- NKDA FamHx -??? as above. Also her mom has DM and her 's aunt had DS. 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 Still playing both soccer and softball. Meds -??? lovenox 30 mg sq bid, PNV ROS - all neg PE BP 118/72 Pulse 69 Resp 18 Wt 167 lb (75.751 kg) Gen - NAD SHEENT - wnl Neck - no lumps, no masses, no thyromegaly, non-tender Cor - RRR, no murmur Chest - CTAB Back - no CVAT bilat Abd - soft, NT, ND, +BS Ext - NT, no edema, normal distal pulses, normal DTRs, normal cap refill Pelvic/breast/rectal - deferred A/P: Paris Ramirez is a 34 y.o. female, , at 7+ weeks with the following issues: 1. Prior DVT - related to Fx foot. Patient recalls not having a thrombophilia work up so this is being ordered today. Agree with prophylactic dosing of lovenox. Single daily dosing is also OK and sheis interested in this upon completing the 1.5 weeks supply she currently has. Thus in about 10 daysshe can convert to Lovenox 40 mg SQ q day. At around 36 weeks would convert to unfractionated heparin. After delivery she can remain on her lovenox for about 6 weeks post . Unless she has a very high risk thrombophilia, or has multiple thrombophilia, then prophylactic dosing will suffice. 2. Prior CS - she has decided that she wants a repeat CS. 3. Counseled to cease all contact/potential contact sports (both softball and soccer). Safe activities discussed. 4. Routine - follow up in 2 weeks to discuss labs and make any adjustments that may be necessary. She will keep all appointments with Dr. Bronson. Genetic counseling and screening per Dr. Bronson. Roberto Leavitt MD 01/14/2010 3:46 PM * Linda Estrada RN - 01/14/2010 2:54 PM CDT Pt. here for consultation w/ M physician at this time. See letter for further information. documented in this encounter Procedure Notes * Document, Scanned - 04/06/2011 3:04 PM CDTAssociated Order(s): LAB RESULTS ORDER documented in this encounter Miscellaneous Notes * Miscellaneous Scans - Document, Scanned - 04/06/2011 3:04 PM CDT * Miscellaneous Scans - Document, Scanned - 04/06/2011 3:04 PM CDT * Miscellaneous Scans - Document, Scanned - 04/06/2011 3:04 PM CDT * Miscellaneous Scans - Document, Scanned - 04/06/2011 3:04 PM CDT * Miscellaneous Scans - Document, Scanned - 04/06/2011 3:04 PM CDT documented in this encounter Plan of Treatment Not on file documented as of this encounter Procedures Procedure Name Priority Date/Time Associated Diagnosis Comments LAB RESULTS ORDER 04/06/2011 3:0 4 PM CDT URINALYSIS OBSTETRICS - POINT OF CARE Routine 01/14/2010 7:02 PM CDT Personal History of Venous Thrombosis and Embolism documented in this encounter Results * LAB RESULTS ORDER (04/06/2011 3:04 PM CDT) Narrative Transcriptions Document, Scanned - 04/06/2011 3:04 PM CDT Scanned Document LAB - THERAPEUTIC DR JACOB MONITORING ORDERABLES * URINALYSIS OBSTETRICS - POINT OF CARE (01/14/2010 7:02 PM CDT) Glucose UA negative Negative [facility] Bilirubin UA negative Negative [facility] Ketone UA negative Negative [facility] Specific Fate UA POCT 1.025 1.000 - 1.030 [facility] Blood [...] MD LAB - POINT OF CARE ORDERABLES Performing Organization Address City/State/[facility] Co de Phone Number [facility] [address] [place] [address] documented in this encounter Visit Diagnoses Diagnosis Personal history of venous thrombosis and embolism- Primary documented in this encounter Care Teams Medical Device Sales Relationship Specialty Start Date End Date Roberto Leavitt MD [address] [address] PCP - General 01/14/10 01/14/10 documented as of this encounter
== END 2024-08-05 02:23 | disposition home or self-care (01) ==
PROVIDERS: Emergency Medicine; Emergency Provider Registered Nurse; PCP Emergency Medicine
DX: I10 Essential (primary) hypertension (principal); E86.0 Dehydration; F90.9 Attention-deficit hyperactivity disorder, unspecified type; Z79.899 Other long term (current) drug therapy
CPT/HCPCS: 36415; 71046; 80053; 83690; 83880; 84443; 84484; 85025; 85610; 85730; 93005; 99284

== ENCOUNTER 2024-08-24 13:50 | Outpatient (CLI) | payer OTHER, SELFPAY ==
--- NOTE | ~2024-08-24 | XR_ITS ---
EXAMINATION: XR chest 2V 08/24/2024 14:17 INDICATION: Cough PROCEDURE: 2 view chest COMPARISON: 08/04/2024 FINDINGS: The lungs are clear. The cardiomediastinal silhouette is within normal limits. There are no pleural effusions. There is no pneumothorax suspected. IMPRESSION: 1: NO ACUTE CARDIOPULMONARY DISEASE. Reviewed, dictated and finalized at location A. ETING UNDERWRITER
== END 2024-08-24 13:51 | disposition home or self-care (01) ==
LOC: GOSHIMG 13:50
PROVIDERS: PCP Nurse Practitioner Family; Visit Provider Nurse Practitioner Family
DX: R05.9 Cough, unspecified (principal)
CPT/HCPCS: 71046

== ENCOUNTER 2025-03-28 09:03 | Outpatient (CLI) | payer OTHER, SELFPAY ==
--- NOTE | ~2025-03-28 | NM_ITS ---
EXAMINATION: NM stress w perf spect multi DATE: 03/28/2025 12:02 INDICATION: Essential hypertension TECHNIQUE: Rest images were obtained following intravenous administration of 10.9 mCi Tc99m tetrofosmin ([email or web address]). The patient performed an exercise activity. At peak exercise, 30.6 mCi Tc99m tetrofosmin (Myoview) was administered intravenously, and stress images were obtained. Data was reconstructed into short axis and horizontal and vertical long axis SPECT images. Gated SPECT images were also obtained. COMPARISON: None. FINDINGS: There is normal left ventricular perfusion without definite evidence of reversible or fixed perfusion abnormality to suggest ischemia or infarction. There is normal left ventricular chamber size, wall motion and ejection fraction. Left ventricular ejection fraction measures >70%. IMPRESSION: 1. Normal myocardial perfusion at rest and during stress. 2. Left ventricular ejection fraction measuring >70%. Reviewed, dictated and finalized at location A.
--- NOTE | 2025-03-28 09:16 | EST_ITS ---
Patient Info Name: Paris Ramirez Age: 49 years : 1975 Gender: Female Ht: 65 in Wt: 172 lbs BSA: 1.91 m2 HR: 64 bpm BP: 140 / 88 mmHg Exam Date: 03/28/2025 9:16 AM Patient Status: O Admit Date: 03/28/2025 Exam Type: CA stress test treadmill w NM A nuclear stress test was performed. Staff Referring Physician: Caroline Woo Attending Provider: Caroline Woo Exercise Technologist: Shannon Galloway Exercise Physician: Nicholas Poon DO Summary 1. 1. Negative Jayesh exercise stress test for ischemic ST changes by ECG criteria. 2. 2. Good functional capacity, achieving 10 METs of workload. 3. 3. Appropriate HR response to exercise. 4. 4. Appropriate HR recovery at 1 minute post exercise. 5. 5. Nuclear scan to follow and will be reported separately. Please correlate with it. 6. 6. Patient informed of the above results. Protocol: Jayesh Stress ECG Details Stage: REST Duration (min): 0 min : 56 sec Speed (mph): 0.0 Grade (%): 0 HR (bpm): 64 SBP (mmHg): 140 DBP (mmHg): 88 METS: --- Stage: REST Duration (min): 8 min : 23 sec Speed (mph): 0.0 Grade (%): 0 HR (bpm): 69 SBP (mmHg): 140 DBP (mmHg): 88 METS: --- Stage: STAGE 1 Duration (min): 1 min : 0 sec Speed (mph): 1.7 Grade (%): 10 HR (bpm): 103 SBP (mmHg): 140 DBP (mmHg): 88 METS: --- Stage: STAGE 1 Duration (min): 2 min : 0 sec Speed (mph): 1.7 Grade (%): 10 HR (bpm): 111 SBP (mmHg): 140 DBP (mmHg): 88 METS: --- Stage: STAGE 1 Duration (min): 3 min : 0 sec Speed (mph): 1.7 Grade (%): 10 HR (bpm): 114 SBP (mmHg): 162 DBP (mmHg): 69 METS: --- Stage: STAGE 2 Duration (min): 1 min : 0 sec Speed (mph): 2.5 Grade (%): 12 HR (bpm): 132 SBP (mmHg): 162 DBP (mmHg): 69 METS: --- Stage: STAGE 2 Duration (min): 2 min : 0 sec Speed (mph): 2.5 Grade (%): 12 HR (bpm): 137 SBP (mmHg): 183 DBP (mmHg): 73 METS: --- Stage: STAGE 2 Duration (min): 3 min : 0 sec Speed (mph): 2.5 Grade (%): 12 HR (bpm): 148 SBP (mmHg): 183 DBP (mmHg): 73 METS: --- Stage: STAGE 3 Duration (min): 1 min : 0 sec Speed (mph): 3.4 Grade (%): 14 HR (bpm): 160 SBP (mmHg): 195 DBP (mmHg): 79 METS: --- Stage: STAGE 3 Duration (min): 2 min : 0 sec Speed (mph): 3.4 Grade (%): 14 HR (bpm): 166 SBP (mmHg): 195 DBP (mmHg): 79 METS: --- Stage: STAGE 3 Duration (min): 2 min : 0 sec Speed (mph): 3.4 Grade (%): 14 HR (bpm): 166 SBP (mmHg): 195 DBP (mmHg): 79 METS: --- Stage: RECOVERY Duration (min): 0 min : 59 sec Speed (mph): 0.0 Grade (%): 0 HR (bpm): 142 SBP (mmHg): 181 DBP (mmHg): 83 METS: --- Stage: RECOVERY Duration (min): 1 min : 59 sec Speed (mph): 0.0 Grade (%): 0 HR (bpm): 110 SBP (mmHg): 181 DBP (mmHg): 83 METS: --- Stage: RECOVERY Duration (min): 2 min : 59 sec Speed (mph): 0.0 Grade (%): 0 HR (bpm): 99 SBP (mmHg): 202 DBP (mmHg): 88 METS: --- Stage: RECOVERY Duration (min): 3 min : 59 sec Speed (mph): 0.0 Grade (%): 0 HR (bpm): 89 SBP (mmHg): 202 DBP (mmHg): 88 METS: --- Stage: RECOVERY Duration (min): 4 min : 59 sec Speed (mph): 0.0 Grade (%): 0 HR (bpm): 90 SBP (mmHg): 152 DBP (mmHg): 89 METS: --- Stage: RECOVERY Duration (min): 5 min : 59 sec Speed (mph): 0.0 Grade (%): 0 HR (bpm): 85 SBP (mmHg): 152 DBP (mmHg): 89 METS: --- Stage: RECOVERY Duration (min): 6 min : 59 sec Speed (mph): 0.0 Grade (%): 0 HR (bpm): 82 SBP (mmHg): 139 DBP (mmHg): 102 METS: --- Stage: RECOVERY Duration (min): 7 min : 10 sec Speed (mph): 0.0 Grade (%): 0 HR (bpm): 81 SBP (mmHg): 139 DBP (mmHg): 102 METS: --- Rest HR: 69 bpm Peak HR: 167 bpm Rest Sys BP: 140 mmHg Peak Sys BP: 202 mmHg Max Pred HR: 172 bpm % Max Pred HR: 97 % Target HR: 146 bpm Max RPP: 33,734 bpm*mmHg Tong Score: 4 Termination Reason: Reached target heart rate or workload Cardiac Symptoms: Shortness of breath Max ST Seg Deviation: 0.90 mm Total Time: 8 min : 0 sec Rest Rizvi BP: 88 mmHg Peak Rizvi BP: 88 mmHg Angina Score: None Total METS: 10.3 Resting ECG Sinus rhythm. Stress ECG No ST changes. Arrhythmias None. Report Signatures
== END 2025-03-28 09:04 | disposition home or self-care (01) ==
PROVIDERS: PCP Nurse Practitioner Family; Visit Provider Nurse Practitioner Family
DX: I10 Essential (primary) hypertension (principal); Z82.49 Family history of ischemic heart disease and other diseases of the circulatory system
CPT/HCPCS: 78452; 93017; A9502

== ENCOUNTER 2025-04-28 14:59 | Outpatient (CLI) | payer OTHER, SELFPAY ==
--- NOTE | ~2025-04-28 | MM_ITS ---
EXAMINATION: MM screening cristofer BI w lj HISTORY: Screening TECHNIQUE: Craniocaudal and mediolateral oblique 3-D tomosynthesis images were obtained and synthetic 2-D images were generated. CAD analysis was submitted and interpreted. COMPARISON: Comparison to multiple prior studies sequentially, with oldest reviewed study dated , 01/08/2024 through 01/15/2018 BREAST PARENCHYMAL COMPOSITION: The breasts are heterogeneously dense, which may obscure small masses. FINDINGS: There is no evidence of suspicious mass, calcification, or architectural distortion to suggest malignancy in either breast. IMPRESSION: 1. No mammographic evidence of malignancy. 2. Recommend routine screening mammography in one year. BI-RADS Category 1: Negative Reviewed, dictated and finalized at location B.
--- OUTSIDE RECORDS SUMMARY | 2025-04-28 15:01 | XMS_ITS | Clinical Summary ---
Author Organization [facility] Address [address] [place] [address] Care Team Providers Care Psychology Intern Name Role Phone Stanton Villegas MD Primary Care Provider Source Comments [facility],non-owned Affiliates and Associated Physician Practices is amultiple site organization consisting of ambulatory clinics and hospital sitesin [place], [place], [place] and [place]. This disclosure is being madepursuant to the Care Everywhere program and may not contain all information available regarding this patient. Last updated 18.[facility] Allergies No known active allergies Medications * Be aware that medications may not be up to date on this document. Alwaysverify current medications with the patient. amphetamine-dext roamphetamine (ADDERALL) 30 MG tablet 08/08/2017 Active buPROPion XL 24hr (WELLBUTRIN-XL) 150 MG tablet 07/10/2017 Activ e amphetamine-dext roamphetamine (ADDERALL) 5 MG tablet 08/08/2017 Active norethindrone (KEREN) 0.35 MG tablet Take 1 tablet by mouth once daily 3 packet 3 09/15/2017 Active Active Problems Problem Noted Date Diagnosed Date Prothrombin mutation 02/18/2010 Personal history of venous thrombosis and emboli sm 01/09/2010 Immunizations Immunization Administration Dates Next Due TDAP (7yrs+) 08/29/2010 [...] = 0.6 oz pur e alcohol) Comments Unknown Sex and Gender Information Value Date Recorded Sex Assigned at Not on file Legal Sex Female 6:03 AM [employer] Gender Identity Not on file Sexual Orientation Not on file Last Filed Vital Signs Vital Sign Reading Time Taken Comments Blood Pressure 132/80 09/15/2017 4:09 PM [employer] Pulse 80 08/30/2010 12:25 AM [employer] Temperature 36.3 C (97.4 F) 08/30/2010 8:30 AM [employer] Respiratory Rate 18 08/30/2010 8:30 AM [employer] Oxygen Saturation 97% 08/26/2010 1:18 PM [employer] Inhaled Oxygen Concentration - - Weight 87.2 kg (192 lb 3.2 oz) 09/15/2017 4:09 P M [employer] Height 165.1 cm (5' 5) 09/15/2017 4:09 PM [employer] Body Mass Index 31.98 09/15/2017 4:09 PM [employer] Plan of Treatment Health Maintenance Due Date [...] 08/29/2020 08/29/2010 PAP with HPV 09/15/2022 09/15/2017 DEPRESSION SCREENING 07/27/2024 COVID-19 VACCINE ( - 2023-2 5 season) 2025 INFLUENZA VACCINE (#1) 2025 ZOSTER VACCINE (1 of 2) 2026 HIB VACCINE Aged Out No longer eligi ble based on patient's age to complete this topic HPV VACCINE Aged Out No longer eligi ble based on patient's age to complete this topic MENINGOCOCCAL (Group B) VACC INE SHARED DECISION-MAKING Aged Out No longer eligibl e based on patient's age to complete this topic MENINGOCOCCAL GROUPS A/C/Y/W VACCINE Aged Out No longer eligible b ased on patient's age to complete this topic PNEUMOCOCCAL VACCINE Aged Out No long er eligible based on patient's age to complete this topic Procedures Procedure Name Priority Date/Time Associated Diagnosis Comments PAP IG LB+HPV APTIMA Routine 09/15/2017 4:27 PM [employer] Well woman exam from Last 3 Months or Most Recently Relevant to Health Maintenance Results * PAP IG LB+HPV APTIMA (09/15/2017 4:27 PM [employer]) Diagnosis [facility] ACCOUNT BILL Comment:NEGATIVE FOR INTRAEP ITHELIAL LESION AND MALIGNANCY. Specimen Adequacy [facility] ACCOUNT BILL Comment:Satisfactory for yonatan luation. No endocervical component is identified. Clinician Provided ICD10 [facility] ACCOUNT BILL Comment:Z01.419 Performed by [facility] ACCOUNT BILL Comment:Yi Maxwell, [facility] otechnologist (ASCP) Comment . [facility] ACCOUNT BILL Note [facility] ACCOUNT BILL Comment: The Pap smear is a screening test designed to aid in the detection of premalignant and malignant conditions of the uterine cervix. It is not a diagnostic procedure and should not be used as the sole means of detecting cervical cancer. Both false-positive and false-negative reports do occur. . IGLBP CPT Code Automation [facility] ACCOUNT BILL Comment: This liquid based ThinPrep(R) pap test was screened with the use of an image guided system. Human papillomavirus Aptima Negative Negative [facility] ACCOUNT BILL Comment: This test detects fourteen high-risk HPV types (16/18/31/33/35/39/45/ 51/52/56/58/59/66/68) without differentiation. PART OF UTERINE CERVIX / Unknown 09/15/2017 4:27 PM [employer] 09/16/2017 Narrative [facility] ACCOUNT BILL - 09/17/2017 5:11 PM [employer] No. of containers..01 ThinPrep Vial Resulting Agency Comment [facility] [place] [id number] Lola Valdovinos MD LAB - PATHOLOGY/CYTOLOGY OR DERABLES Final Result [facility] ACCOUNT BILL [address] [address] from Last 3 Months or Most Recently Relevant to Health Maintenance Insurance [address] [address] Advance Directives * Full Code (Latest Code Status on File) Date Activated Date Inactivated Comments 08/26/2010 9:52 AM 08/26/2010 2:37 PM Care Teams Psychology Intern Relationship Specialty Start Date End Date Stanton Villegas MD [address] [place] [address] PCP - General Family Medicine 09/15/17
== END 2025-04-28 15:00 | disposition home or self-care (01) ==
LOC: CHSIMG 15:00
PROVIDERS: PCP Nurse Practitioner Family; Visit Provider Obstetrics & Gynecology
DX: Z12.31 Encounter for screening mammogram for malignant neoplasm of breast (principal)
CPT/HCPCS: 77063; 77067